=== PATIENT | female | born 1940 | race Caucasian/White ===

== ENCOUNTER 2018-12-24 12:07 | Inpatient (IN) | payer OTHER ==
--- NOTE | 2018-12-24 12:34 | PDOC ---
History of Present Illness - General Chief Complaint: Pain, Acute Stated Complaint: Weakness Time Seen by Provider: 12/24/18 12:27 History Source: Patient Exam Limitations: No Limitations - History of Present Illness Initial Comments: 12/24/18 13:14 78 yo F pmh DM, arthritis, osteopenia, h/o rheumatic fever, HTN, COPD presents with 4 days of increasing constant nonradiating bilateral lower extremity pain localized to the ankles, knees, shins, and calves with right > left. Endorses similar b/l sacroilliac pain. She states there is some swelling of the b/l legs , hayden. of ankles. Pt felt tense since 12/19/18 when she received news her CT chest found a possibly malignant nodule. Normally functionally independent but pain has reduced her ability to ambulate and mild impact on ADLs. Denies recent falls or trauma. Endorses 4 days of constipation with no blood in stool and difficulty urinating. Denies numbness and tingling, F/C/N/V/D, abd pain, chest pain, SOB, headache, lightheadedness, dizziness. PMH DM, arthritis, osteopenia, h/o rheumatic fever, HTN, COPD Surgery: left foot bone spur, left hip pinning, thyroidectomy, tubal ligation Allergies: chart reviewed 12/16/18 CT demonstrated right lung nodule suspicious for malignancy. Past History - Past Medical History Allergies/Adverse Reactions: Allergies Allergy/AdvReac Type Severity Reaction Status Date / Time fesoterodine [From Toviaz] Allergy Verified 12/24/18 12:18 ofloxacin Allergy Verified 12/24/18 12:18 pineapple Allergy Verified 12/24/18 12:09 pomegranate Allergy Verified 12/24/18 12:09 strawberry Allergy Verified 12/24/18 12:09 tomato Allergy Verified 12/24/18 12:08 lansoprazole [From Prevacid] AdvReac Verified 12/24/18 12:18 prednisone AdvReac Verified 12/24/18 12:19 Home Medications: Ambulatory Orders Acetaminophen [Tylenol] 650 mg PO 1800 12/24/18 Albuterol Sulfate [Proair Hfa] 1 - 2 inh IH Q4H PRN 12/24/18 Ascorbic Acid [Vitamin C] 1,000 mg PO DAILY 12/24/18 Aspirin [Aspirin EC] 81 mg PO DAILY 12/24/18 Atenolol [Tenormin -] 25 mg PO 2300 12/24/18 Beta-Carotene(A) W-C and E/Min [Ocuvite (Nf)] 1 tab PO DAILY 12/24/18 Calcium Carbonate [Calcium] 1,000 mg PO 1800 12/24/18 Cranberry 0 mg PO BID 12/24/18 Ergocalciferol (Vitamin D2) [Vitamin D2] 2,000 unit PO DAILY 12/24/18 Levothyroxine Sodium [Levoxyl] 112 mcg PO 0700 12/24/18 Lutein 20 mg PO DAILY 12/24/18 Meloxicam 15 mg PO 1200 12/24/18 Metformin HCl [Glucophage] 500 mg PO 1800 12/24/18 [place]-3/Dha/Epa/Fish Oil [Fish Oil 1,000 mg Softgel] 0 mg PO 179912/24/18 Simvastatin 10 mg PO 179912/24/18 COPD: No - Suicide/Smoking/Psychosocial Hx Smoking History: Former smoker Have you smoked in the past 12 months: No If you are a former smoker, when did you quit?: 1995 Information on smoking cessation initiated: No Review of Systems - Review of Systems Able to Perform ROS?: Yes Is the patient limited Swedish proficient: No Constitutional: Yes: Weakness. No: Chills, Fever, Loss of Appetite HEENTM: No: Symptoms Reported, Eye Pain, Blurred Vision, Tearing, Recent change in vision, Double Vision, Cataracts, Ear Pain, Ocular Prothesis, Ear Discharge, Nose Pain, Nose Congestion, Tinnitus, Nose Bleeding, Hearing Loss, Throat Pain, Throat Swelling, Mouth Pain, Dental Problems, Difficulty Swallowing, Mouth Swelling, Other Respiratory: No: Symptoms reported, Cough, Orthopnea, Shortness of Breath, SOB with Exertion, SOB at Rest, Stridor, Wheezing, Productive cough, Hemoptysis, Other Cardiac (ROS): No: Symptoms Reported, Chest Pain, Edema, Irregular Heart Rate, Lightheadedness, Palpitations, Syncope, Chest Tightness, Other ABD/GI: Yes: Symptoms Reported, See HPI, Constipated. No: Abdominal Distended, Abd. Pain w/ defecation, Blood Streaked Bowels, Diarrhea, Difficulty Swallowing , Nausea, Poor Appetite, Poor Fluid Intake, Rectal Bleeding, Vomiting, Indigestion, Abdominal cramping, Tarry Stools, Other : Yes: Symptoms Reported (difficulty urinating with no burning or blood noticed), See HPI Musculoskeletal: Yes: See HPI. No: Back Pain, Neck Pain Integumentary: No: Symptoms Reported, See HPI, Bruising, Change in Color, Change in Hair/Nails, Dryness, Erythema, Flushing, Lesions, Lumps, Pallor, Pruritus, Rash, Sweating, Other Neurological: Yes: See HPI, Weakness. No: Headache, Numbness, Paresthesia, Pre- Existing Deficit, Seizure, Tingling, Tremors, Unsteady Gait, Ataxia, Dizziness, Other Psychiatric: Yes: Anxiety (see hpi: CT shows possible malignancy ), Stressors. No: Change in Appetite *Physical Exam - Vital Signs Last Vital Signs Temp Pulse Resp BP Pulse Ox 98.1 F 72 18 138/68 94 L 12/24/18 12:19 12/24/18 12:19 12/24/18 12:19 12/24/18 12:19 12/24/18 12:19 - Physical Exam Comments: 12/24/18 13:40 GEN: Resting comfortably in bed, NAD. HEENT: NC/AT, EOMI, PERRLA, CN II-XII intact. Moist mucous membranes. CV: S1/S2, RRR, no m/r/g LUNG: CTAB, no wheezes, crackles, rales, rhonchi. GI: soft, ndnt, +BS. Neg CVAT b/l. No masses. Extremities: No obvious deformities. +TTP b/l calves and suprapetallar bursa. No bony point tenderness. Back: (+) TTP of right sacroiliac joint region. No step offs, no vertebral TTP. No pelvic TTP. Neuro: AAOx3, moving b/l UE well. 3/5 effort-limited strength of the b/l LE. Sensation grossly intact of all extremities. ED Treatment Course - LABORATORY CBC & Chemistry Diagram: 12/27/18 07:00 12/27/18 07:00 Medical Decision Making - Medical Decision Making 12/24/18 13:45 78 yo F pmh DM, arthritis, osteopenia, h/o rheumatic fever, HTN, COPD with 4 days of increasing sharp constant nonradiating bilateral lower extremity pain localized to the ankles, knees, shins, and calves; with right > left. Endorsing similar b/l sacroilliac pain. Patient had CT 12/16/18 demonstrating a RLL lung mass susp. for malignancy. Patient endorses 4 days of difficulty urinating and constipation. Exam significant for TTP of the b/l calves, suprapetallar bursas, and right sacroiliac joint. DDx pathologic fracture, bone metastases, UTI, DVT, rhabomyelisis. B/L LE pain - CBC, CMP, CPK - UA, UCX - IV, PAIN CTRL - B/L LE DVT STUDY - LS XR 12/24/18 16:33 - LS XR reviewed - Labs reviewed - f/u UA 12/24/18 17:34 - LE DVT study found no DVTs in either leg - f/u UA - pain control -> ambulate 12/24/18 19:20 MRI L-spine Dispo pending Signed out to night team *DC/Admit/Observation/Transfer Diagnosis at time of Disposition: Lower extremity pain Qualifiers: Laterality: bilateral Qualified Code(s): M79.604 - Pain in right leg; M79.605 - Pain in left leg - Discharge Dispostion Condition at time of disposition: Stable Decision to Admit order: Yes - Referrals - Patient Instructions - Post Discharge Activity
[2018-12-24] MEDS ORDERED: ACETAMINOPHEN 1000 MG/100 ML VIAL (NON FORMULARY) IVPB ONE (14:18)
[2018-12-24 14:40] LABS: HEMATOCRIT 41.4 % (32.4-45.2); MCH 30.1 pg (25.7-33.7); MCHC 33.8 g/dl (32.0-36.0); MEAN CELL VOLUME 89.1 fl (80-96); MEAN PLT VOLUME 8.7 fl (7.5-11.1); PLATELET COUNT 248 K/MM3 (134-434); RBC 4.65 M/mm3 (3.60-5.2); RDW 13.5 % (11.6-15.6); WHITE BLOOD COUNT 9.4 K/mm3 (4.0-10.0)
[2018-12-24] MEDS ORDERED: ACETAMINOPHEN INJECTION 100 ML IVPB ONE (15:05)
[2018-12-24 15:06] LABS: ALBUMIN 3.2 g/dl (3.4-5.0); BILIRUBIN,TOTAL 0.5 mg/dL (0.2-1); BLOOD UREA NITROGEN 15.4 mg/dL (7-18); CALCIUM 9.1 mg/dL (8.5-10.1); CREATININE 0.7 mg/dL (0.55-1.3); POTASSIUM 4.2 mmol/L (3.5-5.1); TOT PROT 6.3 g/dl (6.4-8.2)
--- NOTE | 2018-12-24 17:02 | PDOC ---
Documentation entered by Becky Gill SCRIBE, acting as scribe for Sanjana Rae MD. Sanjana Rae MD: This documentation has been prepared by the Jairo lorenzo Collisia, SCRIBE, under my direction and personally reviewed by me in its entirety. I confirm that the documentation accurately reflects all work, treatment, procedures, and medical decision making performed by me. Attending Attestation - Resident Resident Name: Tahir Shelby - [facility] HPI: 12/24/18 15:05 The patient is a 78 year old male with a significant past medical history of diabetes, hypertension, COPD, and a right lower lobe malignancy( recent diagnosed) who presents to the emergency department with bilateral leg pain for 4 ceron. The patient states that her leg pain began on sunday. She states that she has been able to get around and ambulate normally secondary to pain. She denies any fever, chills, nausea, vomiting, diarrhea, constipation, urinary symptoms, numbness, tingling or weakness. She denies and back pain. She endorses that the pain goes across her buttocks and down her legs. The patient denies any other complaints. - Physicial Exam PE: 12/24/18 15:31 GENERAL: Awake, alert, and fully oriented, in no acute distress HEAD: No signs of trauma EYES: PERRLA, EOMI, sclera anicteric, conjunctiva clear ENT: Auricles normal inspection, hearing grossly normal, nares patent, oropharynx clear without exudates. Moist mucosa NECK: Normal ROM, supple, no lymphadenopathy, JVD, or masses LUNGS: Breath sounds equal, clear to auscultation bilaterally. No wheezes, and no crackles HEART: Regular rate and rhythm, normal S1 and S2, no murmurs, rubs or gallops ABDOMEN: Soft, nontender, normoactive bowel sounds. No guarding, no rebound. No masses BACK:(+) point tenderness at sacral spine. EXTREMITIES: (+) decrease active ROM at knee, minimal ROM below knee. No erythema,edema. No clubbing or cyanosis. No cords or tenderness NEUROLOGICAL: Cranial nerves II through XII grossly intact. Normal speech, normal gait SKIN: Warm, Dry, normal turgor, no rashes or lesions noted. - Medical Decision Making 07/23/19 17:00 Pt presents to the ED complaining of bilateral leg pain and lower back pain. History of lung malignancy. No symptoms suggestive of cord compression. Differential includes DVT, lytic lesion, muscular pain. Will check xray of the lumbar spine and b/l duplex, give pain control, likely discharge home if studies are negative.
[2018-12-24] MEDS ORDERED: morphine CARPU-JECT 4 MG/1 ML DISP.SYRIN IVPUSH ONE (17:16)
[2018-12-24] MEDS ORDERED: morphine SULFATE 4 MG/ML VIAL ONE (19:12)
[2018-12-24 20:31] LABS: EPI CELLS 0.5 /HPF (0-5/HPF); HYALINE CASTS 0 /lpf (0-8); PH,URINE 6.5 (5.0-8.0); URINE APPEARANCE CLEAR; URINE BACTERIA 3.5 /hpf (NEGATIVE); URINE BILIRUBIN NEGATIVE (NEGATIVE); URINE COLOR YELLOW; URINE GLUCOSE (UA) NEGATIVE (NEGATIVE); URINE KETONE NEGATIVE (NEGATIVE); URINE LEUK ESTERASE NEGATIVE (NEGATIVE); URINE NITRITE NEGATIVE (NEGATIVE); URINE PROTEIN NEGATIVE (NEGATIVE); URINE RBC 5 /hpf (0-4); URINE UROBILINOGEN 0.2 mg/dL (0.2-1.0); URINE WBC 1 /hpf (0-5)
--- NOTE | 2018-12-25 03:59 | HP ---
Admitting History and Physical - Primary Care Physician PCP: Nolan Ying - Admission Chief Complaint: Back pain, B/L LE knees, ankles, calves pain, Unable to Ambulate History of Present Illness: This is a 8 y/o woman with a PMHx of recent diagnosis of Lung Ca (CT Chest- possible malignant nodule), HTN, DM, COPD, OA, Osteopenia, Rheumatic Fever. who presents to the ED with back pain and inability to ambulate. Patient reports sacroilliac pain radiating to b/l LE, R>L.Patient reports last Sunday she was her usual self ambulating with a cane, performing her ADLs, and errands. She reports having a loss of balance with her right leg falling against the door. The patient reports last Sunday morning she could not get out of the bed due to the pain to her lower back, knees, calves and ankles. Patient denies numbness or parasthesias at present. Patient denies bowel or bladder incontinence. Patient denies fever, chills, cough, dizziness, SOB, CP, palpitations, AP, N/V/D, dysuria. Patient denies recent trauma. History Source: Patient Limitations to Obtaining History: No Limitations - Past Medical History Cardiovascular: Yes: HTN Pulmonary: Yes: Cancer, COPD Musculoskeletal: Yes: Osteoarthritis, Other (Osteopenia) Rheumatology: Yes: Other (Rheumatic fever) Endocrine: Yes: Diabetes Mellitus - Past Surgical History Past Surgical History: Yes: Joint Replacement - Smoking History Smoking history: Former smoker Have you smoked in the past 12 months: No If you are a former smoker, when did you quit?: 1995 - Social History History of Recent Travel: No Home Medications - Allergies Allergies/Adverse Reactions: Allergies Allergy/AdvReac Type Severity Reaction Status Date / Time fesoterodine [From Toviaz] Allergy Verified 12/24/18 12:18 ofloxacin Allergy Verified 12/24/18 12:18 pineapple Allergy Verified 12/24/18 12:09 pomegranate Allergy Verified 12/24/18 12:09 strawberry Allergy Verified 12/24/18 12:09 tomato Allergy Verified 12/24/18 12:08 lansoprazole [From Prevacid] AdvReac Verified 12/24/18 12:18 prednisone AdvReac Verified 12/24/18 12:19 - Home Medications Home Medications: Ambulatory Orders Acetaminophen [Tylenol] 650 mg PO 1800 12/24/18 Albuterol Sulfate [Proair Hfa] 1 - 2 inh IH Q4H PRN 12/24/18 Ascorbic Acid [Vitamin C] 1,000 mg PO DAILY 12/24/18 Aspirin [Aspirin EC] 81 mg PO DAILY 12/24/18 Atenolol [Tenormin -] 25 mg PO 2300 12/24/18 Beta-Carotene(A) W-C and E/Min [Ocuvite (Nf)] 1 tab PO DAILY 12/24/18 Calcium Carbonate [Calcium] 1,000 mg PO 1800 12/24/18 Cranberry 0 mg PO BID 12/24/18 Ergocalciferol (Vitamin D2) [Vitamin D2] 2,000 unit PO DAILY 12/24/18 Levothyroxine Sodium [Levoxyl] 112 mcg PO 0712/24/18 Lutein 20 mg PO DAILY 12/24/18 Meloxicam 15 mg PO 1200 12/24/18 Metformin HCl [Glucophage] 500 mg PO 1800 12/24/18 [place]-3/Dha/Epa/Fish Oil [Fish Oil 1,000 mg Softgel] 0 mg PO 1800 12/24/18 Simvastatin 10 mg PO 1800 12/24/18 Family Disease History - Family Disease History Family History: Unable to Obtain Review of Systems - Review of Systems Constitutional: reports: Weakness Eyes: reports: No Symptoms HENT: reports: No Symptoms Neck: reports: No Symptoms Cardiovascular: reports: No Symptoms Respiratory: reports: No Symptoms Gastrointestinal: reports: No Symptoms Genitourinary: reports: No Symptoms Breasts: reports: No Symptoms Reported Musculoskeletal: reports: Back Pain, Extremity Pain, Joint Pain Integumentary: reports: No Symptoms Neurological: reports: Unsteady Gait, Weakness Endocrine: reports: No Symptoms Hematology/Lymphatic: reports: No Symptoms Psychiatric: reports: No Symptoms Pain Intensity: 6 Physical Examination Vital Signs: Vital Signs Temperature 97.6 F 12/25/18 03:20 Pulse Rate 68 12/25/18 03:20 Respiratory Rate 17 12/25/18 03:20 Blood Pressure 106/61 12/25/18 03:20 O2 Sat by Pulse Oximetry (%) 95 12/25/18 03:20 Constitutional: Yes: No Distress, Anxious Eyes: Yes: EOM Intact, PERRL HENT: Yes: WNL, Atraumatic, Normocephalic Neck: Yes: WNL, Supple, Trachea Midline Cardiovascular: Yes: Regular Rate and Rhythm, S1, S2 Respiratory: Yes: Rhonchi (right lobe) Gastrointestinal: Yes: WNL, Normal Bowel Sounds, Soft ...Rectal Exam: Yes: Deferred Renal/: Yes: WNL Breast(s): Yes: WNL Musculoskeletal: Yes: Back Pain Extremities: Yes: WNL Edema: No Peripheral Pulses WNL: Yes Neurological: Yes: WNL, Alert, Oriented, Cran Nerves II-XII Intact. No: Loss of Sensation, Numbness, Paresthesia, Tingling Psychiatric: Yes: WNL, Alert, Oriented Labs: CBC, BMP 12/24/18 04:04 12/24/18 04:04 Laboratory Results - last 24 hr 12/24/18 12/24/18 12/24/18 04:04 04:04 13:42 WBC 9.4 RBC 4.65 Hgb 14.0 Hct 41.4 MCV 89.1 MCH 30.1 MCHC 33.8 RDW 13.5 Plt Count 248 MPV 8.7 Sodium 139 Potassium 4.2 Chloride 104 Carbon Dioxide 26 Anion Gap 9 BUN 15.4 Creatinine 0.7 Est GFR (CKD-EPI)AfAm 96.86 Est GFR (CKD-EPI)NonAf 83.57 POC Glucometer Random Glucose 109 H Calcium 9.1 Total Bilirubin 0.5 AST 17 ALT 21 Alkaline Phosphatase 99 Creatine Kinase 92 Total Protein 6.3 L Albumin 3.2 L Urine Color Cancelled Urine Appearance Cancelled Urine pH Cancelled Ur Specific [place] Cancelled Urine Protein Cancelled Urine Glucose (UA) Cancelled Urine Ketones Cancelled Urine Blood Cancelled Urine Nitrite Cancelled Urine Bilirubin Cancelled Urine Urobilinogen Cancelled Ur Leukocyte Esterase Cancelled Urine WBC (Auto) Cancelled Urine RBC (Auto) Cancelled Urine Casts (Auto) Cancelled U Pathogenic Cast Auto Cancelled U Epithel Cells (Auto) Cancelled U Sm Round Cell (Auto) Cancelled Urine Crystals (Auto) Cancelled Urine Bacteria (Auto) Cancelled Urine Yeast (Auto) Cancelled 12/24/18 12/25/18 20:15 02:56 WBC RBC Hgb Hct MCV MCH MCHC RDW Plt Count MPV Sodium Potassium Chloride Carbon Dioxide Anion Gap BUN Creatinine Est GFR (CKD-EPI)AfAm Est GFR (CKD-EPI)NonAf POC Glucometer 130 Random Glucose Calcium Total Bilirubin AST ALT Alkaline Phosphatase Creatine Kinase Total Protein Albumin Urine Color Yellow Urine Appearance Clear Urine pH 6.5 Ur Specific [place] 1.010 Urine Protein Negative Urine Glucose (UA) Negative Urine Ketones Negative Urine Blood Trace Urine Nitrite Negative Urine Bilirubin Negative Urine Urobilinogen 0.2 Ur Leukocyte Esterase Negative Urine WBC (Auto) 1 Urine RBC (Auto) 5 Urine Casts (Auto) 0 U Pathogenic Cast Auto U Epithel Cells (Auto) 0.5 U Sm Round Cell (Auto) Urine Crystals (Auto) Urine Bacteria (Auto) 3.5 Urine Yeast (Auto) Intake & Output 12/22/18 12/23/18 12/24/18 12/25/18 23:59 23:59 23:59 23:59 Weight 78.018 kg Current Medications Generic Name Dose Route Start Last Admin Trade Name Freq PRN Reason Stop Dose Admin Acetaminophen 650 mg 12/25/18 06:40 Tylenol - PO Q6H PRN PAIN LEVEL 7 - 10 Albuterol Sulfate 1 puff 12/25/18 06:40 Ventolin Hfa Inhaler - IH Q4H PRN SHORTNESS OF BREATH Ascorbic Acid 1,000 mg 12/25/18 10:00 Vitamin C - PO DAILY [facility] Aspirin 81 mg 12/25/18 10:00 Ecotrin - PO DAILY [facility] Atenolol 25 mg 12/25/18 23:00 Tenormin - PO 2300 [facility] Atorvastatin Calcium 10 mg 12/25/18 22:00 Lipitor - PO 2200 [facility] Levothyroxine Sodium 112 mcg 12/26/18 07:00 Synthroid - PO 0700 [facility] Non-Formulary Medication 1 tab 12/25/18 10:00 Beta-Carotene(A) W-C And E/Min PO DAILY [facility] Non-Formulary Medication 20 mg 12/25/18 10:00 Lutein [Lutein] PO DAILY [facility] Non-Formulary Medication 15 mg 12/25/18 12:00 Meloxicam [Meloxicam] PO 1200 [facility] Vagmh-0-Blja Ethyl Esters 2 gm 12/25/18 10:00 Lovaza - PO BID [facility] Imaging - Results X-ray: Report Reviewed, Image Reviewed MRI: Report Reviewed EKG: Pending Problem List - Problems (1) Intractable back pain Code(s): M54.9 - DORSALGIA, UNSPECIFIED (2) HTN (hypertension) Code(s): I10 - ESSENTIAL (PRIMARY) HYPERTENSION (3) COPD (chronic obstructive pulmonary disease) Code(s): J44.9 - CHRONIC OBSTRUCTIVE PULMONARY DISEASE, UNSPECIFIED (4) Diabetes mellitus Code(s): E11.9 - TYPE 2 DIABETES MELLITUS WITHOUT COMPLICATIONS (5) Osteoarthritis Code(s): M19.90 - UNSPECIFIED OSTEOARTHRITIS, UNSPECIFIED SITE Assessment/Plan This is a 78 y/o woman with a PMHx of HTN, DM, COPD, recent diagnosis of Lung Ca , OA, Osteopenia, Rheumatic Fever. Admitted for Intractable Back Pain, Generalized Weakness, Unable to Ambulate. Plan: Admit Appreciate Ortho consult Appreciate Oncology consult PT eval Continue home meds Monitor CBC, BMP Monitor vitals Fall Precautions Tylenol prn FEN PO fluids as tolerated Replete lytes prn Low Na, Diabetic Diet DVT ppx OOB SCDs Heparin SQ Dispo: Requires Inpatient Care Visit type - Emergency Visit Emergency Visit: Yes ED Registration Date: 12/24/18 Care time: The patient presented to the Emergency Department on the above date and was hospitalized for further evaluation of their emergent condition. - New Patient This patient is new to me today: Yes Date on this admission: 12/25/18 - Critical Care Critical Care patient: No
[2018-12-25] MEDS ORDERED: ALBUTEROL SO4 8 GM HFA INHALER IH PRN ×2 (06:40→08:01)
[2018-12-25] MEDS ORDERED: ACETAMINOPHEN 325 MG TABLET (FP) PO PRN (06:40)
[2018-12-25] MEDS ORDERED: PATIENT'S OWN MEDICATION (NON-FORMULARY) (Lutein [Lutein] 20 MG) PO SCH (10:00)
[2018-12-25] MEDS ORDERED: PATIENT'S OWN MEDICATION (NON-FORMULARY) (Beta-Carotene(A) W-C And E/Min 1 TAB) PO SCH (10:00)
[2018-12-25] MEDS: OMEGA-3 ACID ETHYL ESTERS (FATTY-ACIDS) 1 GM CAPSULE (FP) PO SCH ×2 (10:26→22:32)
[2018-12-25] MEDS: ASCORBIC ACID 500 MG TABLET (FP) PO SCH (10:30)
[2018-12-25] MEDS: ASPIRIN COATED 81 MG TABLET.EC PO SCH (10:30)
[2018-12-25] MEDS ORDERED: PATIENT'S OWN MEDICATION (NON-FORMULARY) (Meloxicam [Meloxicam] 15 MG) PO SCH (12:00)
--- NOTE | 2018-12-25 14:21 | PN ---
Progress Note (short form) - Note Progress Note: PULMONARY CONSULTATION DICTATED 12/25/18 IMP RLL MASS LIKELY BRONCHOGENIC CA COPD DM OA BACK PAIN,LOWER EXT WEAKNESS H/O RHEUMATIC FEVER PLAN ANALGESICS BONE SCAN PET OUTPATIENT ORTHOPEDICS,NEUROLOGY CONSULT PT WILL NEED BX RLL MASS DR RIGGINS Problem List - Problems (1) Lung mass Code(s): R91.8 - OTHER NONSPECIFIC ABNORMAL FINDING OF LUNG FIELD (2) COPD (chronic obstructive pulmonary disease) Code(s): J44.9 - CHRONIC OBSTRUCTIVE PULMONARY DISEASE, UNSPECIFIED (3) Diabetes mellitus Code(s): E11.9 - TYPE 2 DIABETES MELLITUS WITHOUT COMPLICATIONS (4) Lower extremity weakness Code(s): R29.898 - OTH SYMPTOMS AND SIGNS INVOLVING THE MUSCULOSKELETAL SYSTEM (5) H/O: rheumatic fever Code(s): Z86.79 - PERSONAL HISTORY OF OTHER DISEASES OF THE CIRCULATORY SYSTEM (6) HTN (hypertension) Code(s): I10 - ESSENTIAL (PRIMARY) HYPERTENSION (7) Osteoarthritis Code(s): M19.90 - UNSPECIFIED OSTEOARTHRITIS, UNSPECIFIED SITE
--- NOTE | 2018-12-25 15:12 | PN ---
Progress Note, Physician Chief Complaint: Intractable Back Pain Lower Extremity Weakness History of Present Illness: Previous notes and events reviewed awake and alert NAD complain of aching right lower back pain continue with lower extremity weakness denies chest pain or SOB - Current Medication List Current Medications: Active Medications Acetaminophen (Tylenol -) 650 mg PO Q6H PRN PRN Reason: PAIN LEVEL 7 - 10 Albuterol Sulfate (Ventolin Hfa Inhaler -) 1 puff IH Q4H PRN PRN Reason: SHORTNESS OF BREATH Albuterol Sulfate (Ventolin Hfa Inhaler -) 2 puff IH Q4H PRN PRN Reason: SHORTNESS OF BREATH Ascorbic Acid (Vitamin C -) 1,000 mg PO DAILY [facility] Last Admin: 12/25/18 10:30 Dose: 1,000 mg Aspirin (Ecotrin -) 81 mg PO DAILY [facility] Last Admin: 12/25/18 10:30 Dose: 81 mg Atenolol (Tenormin -) 25 mg PO 2300 [facility] Atorvastatin Calcium (Lipitor -) 10 mg PO 2200 [facility] Levothyroxine Sodium (Synthroid -) 112 mcg PO 0700 [facility] Non-Formulary Medication (Beta-Carotene(A) W-C And E/Min) 1 tab PO DAILY [facility] Non-Formulary Medication (Lutein [Lutein]) 20 mg PO DAILY [facility] Non-Formulary Medication (Meloxicam [Meloxicam]) 15 mg PO 1200 [facility] Afkwh-1-Braw Ethyl Esters (Lovaza -) 2 gm PO BID [facility] Last Admin: 12/25/18 10:26 Dose: 2 gm - Objective Vital Signs: Vital Signs Temperature 97.6 F 12/25/18 03:20 Pulse Rate 70 12/25/18 08:39 Respiratory Rate 18 12/25/18 08:39 Blood Pressure 112/61 12/25/18 08:39 O2 Sat by Pulse Oximetry (%) 96 12/25/18 08:39 Constitutional: Yes: No Distress, Calm Eyes: Yes: Conjunctiva Clear HENT: Yes: Atraumatic Cardiovascular: Yes: Regular Rate and Rhythm Respiratory: Yes: Regular, CTA Bilaterally Gastrointestinal: Yes: Normal Bowel Sounds, Soft Musculoskeletal: Yes: Muscle Weakness Extremities: Yes: WNL Edema: No Neurological: Yes: Alert, Oriented, Weakness (b/l lower extremity) Psychiatric: Yes: Alert, Oriented Labs: CBC, BMP 12/24/18 04:04 12/24/18 04:04 - ....Imaging MRI: Report Reviewed Problem List - Problems (1) COPD (chronic obstructive pulmonary disease) Assessment/Plan: -Pulm on board -O2 via NC -keep SpO2 >90% -bronchodilators Code(s): J44.9 - CHRONIC OBSTRUCTIVE PULMONARY DISEASE, UNSPECIFIED (2) Diabetes mellitus Assessment/Plan: -BGM ACHS -ISS -Metformin -low Na/diabetic diet Code(s): E11.9 - TYPE 2 DIABETES MELLITUS WITHOUT COMPLICATIONS (3) HTN (hypertension) Assessment/Plan: -Atenolol -low Na diet Code(s): I10 - ESSENTIAL (PRIMARY) HYPERTENSION (4) Intractable back pain Assessment/Plan: -Lumbar MRI shows L2-L3 central spinal canal stenosis sedimentation sign, acute osteoporotic compression fracture involving superior endplateof L4, L$-L5 circumfrencial disc bulge -Orthopedic consult -PT -pain control Code(s): M54.9 - DORSALGIA, UNSPECIFIED (5) Lung cancer Assessment/Plan: -patient is scheduled for PET Scan as outpatient -Pulm on board Code(s): C34.90 - MALIGNANT NEOPLASM OF UNSP PART OF UNSP BRONCHUS OR LUNG (6) Osteoarthritis Assessment/Plan: -Meloxicam -PT Code(s): M19.90 - UNSPECIFIED OSTEOARTHRITIS, UNSPECIFIED SITE (7) Lower extremity weakness Assessment/Plan: -Neurology consult -PT -fall precautions Code(s): R29.898 - OTH SYMPTOMS AND SIGNS INVOLVING THE MUSCULOSKELETAL SYSTEM Assessment/Plan see problem list dvt ppx
[2018-12-25] MEDS ORDERED: INSULIN SLIDING SCALE (NOVOLOG) 1 VIAL SQ SCH (16:30)
[2018-12-25] MEDS: INSULIN SLIDING SCALE (NOVOLOG) 1 VIAL SQ SCH ×2 (17:50→22:33)
[2018-12-25] MEDS ORDERED: DEXAMETHASONE SOD PHOSPHATE 4 MG/1 ML VIAL IVPB ONE (22:00)
[2018-12-25] MEDS: ATORVASTATIN CA 10 MG TABLET (FP) PO SCH (22:32)
[2018-12-25] MEDS: ATENOLOL 25 MG TABLET (FP) PO SCH (22:32)
[2018-12-26 01:29] VITALS: BMI 29.0
[2018-12-26] MEDS: INSULIN SLIDING SCALE (NOVOLOG) 1 VIAL SQ SCH ×4 (06:44→21:05)
[2018-12-26] MEDS: DEXAMETHASONE SOD PHOSPHATE 4 MG/1 ML VIAL IVPUSH SCH ×4 (06:44→20:59)
[2018-12-26] MEDS ORDERED: LEVOTHYROXINE NA 112 MCG TABLET (FP) PO SCH (07:00)
[2018-12-26 08:24] LABS: HEMATOCRIT 44.2 % (32.4-45.2); HEMOGLOBIN 14.8 GM/dL (10.7-15.3); MCHC 33.5 g/dl (32.0-36.0); MEAN CELL VOLUME 89.4 fl (80-96); MEAN PLT VOLUME 9.2 fl (7.5-11.1); PLATELET COUNT 264 K/MM3 (134-434); RBC 4.94 M/mm3 (3.60-5.2); RDW 13.6 % (11.6-15.6); WHITE BLOOD COUNT 11.9 K/mm3 (4.0-10.0)
[2018-12-26 08:58] LABS: ALBUMIN 3.2 g/dl (3.4-5.0); BILIRUBIN,TOTAL 0.4 mg/dL (0.2-1); BLOOD UREA NITROGEN 16.2 mg/dL (7-18); CREATININE 0.7 mg/dL (0.55-1.3); POTASSIUM 4.2 mmol/L (3.5-5.1); TOT PROT 6.6 g/dl (6.4-8.2)
--- NOTE | 2018-12-26 09:38 | CON.ORTH ---
Consult Reason for Consultation:: LBP - Past Medical History Cardio/Vascular: Yes: HTN Pulmonary: Yes: Cancer, COPD Musculoskeletal: Yes: Osteoarthritis, Other (Osteopenia) Rheumatology: Yes: Other (Rheumatic fever) Endocrine: Yes: Diabetes Mellitus - Past Surgical History Past Surgical History: Yes: Joint Replacement - Alcohol/Substance Use Hx Alcohol Use: No - Smoking History Smoking history: Former smoker Have you smoked in the past 12 months: No Aproximately how many cigarettes per day: 20 If you are a former smoker, when did you quit?: 1995 - Social History History of Recent Travel: No Home Medications - Allergies Allergies/Adverse Reactions: Allergies Allergy/AdvReac Type Severity Reaction Status Date / Time fesoterodine [From Toviaz] Allergy Verified 12/24/18 12:18 ofloxacin Allergy Verified 12/24/18 12:18 pineapple Allergy Verified 12/24/18 12:09 pomegranate Allergy Verified 12/24/18 12:09 strawberry Allergy Verified 12/24/18 12:09 tomato Allergy Verified 12/24/18 12:08 lansoprazole [From Prevacid] AdvReac Verified 12/24/18 12:18 prednisone AdvReac Verified 12/24/18 12:19 - Home Medications Home Medications: Ambulatory Orders Acetaminophen [Tylenol] 650 mg PO 1800 12/24/18 Albuterol Sulfate [Proair Hfa] 1 - 2 inh IH Q4H PRN 12/24/18 Ascorbic Acid [Vitamin C] 1,000 mg PO DAILY 12/24/18 Aspirin [Aspirin EC] 81 mg PO DAILY 12/24/18 Atenolol [Tenormin -] 25 mg PO 2300 12/24/18 Beta-Carotene(A) W-C and E/Min [Ocuvite (Nf)] 1 tab PO DAILY 12/24/18 Calcium Carbonate [Calcium] 1,000 mg PO 1800 12/24/18 Cranberry 0 mg PO BID 12/24/18 Ergocalciferol (Vitamin D2) [Vitamin D2] 2,000 unit PO DAILY 12/24/18 Levothyroxine Sodium [Levoxyl] 112 mcg PO 0700 12/24/18 Lutein 20 mg PO DAILY 12/24/18 Meloxicam 15 mg PO 1200 12/24/18 Metformin HCl [Glucophage] 500 mg PO 1800 12/24/18 [place]-3/Dha/Epa/Fish Oil [Fish Oil 1,000 mg Softgel] 0 mg PO 1800 12/24/18 Simvastatin 10 mg PO 1800 12/24/18 Physical Exam for Ortho Vital Signs: Vital Signs Temperature 98.2 F 12/26/18 05:36 Pulse Rate 66 12/26/18 05:36 Respiratory Rate 20 12/26/18 05:36 Blood Pressure 111/61 12/26/18 05:36 O2 Sat by Pulse Oximetry (%) 97 12/26/18 00:36 Labs: CBC, BMP 12/26/18 07:15 12/26/18 07:15 - Affected Extremity Neuro/Vascular Assessment: Yes: Warm, [place], Normal Sensation Other Findings/Remarks: LS spine- +ttp right lateral paraspinals, decr sensation in b/l LE, + SLR , strength 4/5, 2 + pulses b/l Imaging - Results X-ray: Report Reviewed, Image Reviewed MRI: Report Reviewed, Image Reviewed Assessment/Plan 8 y/o woman with a PMHx of recent diagnosis of Lung Ca (CT Chest- possible malignant nodule), HTN, DM, COPD, OA, Osteopenia, Rheumatic Fever. who presents to the ED with back pain and inability to ambulate. Patient reports sacroilliac pain radiating to b/l LE, R>L.Patient reports last Sunday she was her usual self ambulating with a cane, performing her ADLs, and errands. She reports having a loss of balance with her right leg falling against the door. The patient reports last Sunday morning she could not get out of the bed due to the pain to her lower back, knees, calves and ankles. Patient denies bowel or bladder incontinence. Patient denies fever, chills, cough, dizziness, SOB, CP, palpitations, AP, N/V/D, dysuria. Patient notes decreased sensation in b/l LE. She notes that her pain is better this am. a/p L4 compression fx, multi level HNP, foraminal and central canal stenosis MRI d/w pt in detail PT eval, wbat recommend neurosurgery eval may benefit from lumbar brace d/w Dr. Brambila
--- NOTE | 2018-12-26 11:17 | CONSULT ---
Consultation: CONSULT REQUEST: Heme/Onc HISTORY OF PRESENT ILLNESS: Patient is a 78 yo F with a PMHx, HTN, DM, COPD, osteopenia, rheumatic fever, Possible Lung Malignancy, presented to the ED because of b/l LE pain. She says she has pain on both legs from her knees down to her foot. She also complains of lower back pain. She said she was doing fine a few days ago until she felt her R knee buckle on her which caused her to lose balance. She denies falling. She was admitted with intractable back and lower extremity pain. Lumbar MRI: L4 compression fx, multi level HNP, foraminal and central canal stenosis. She is currently being evaluated by ortho. Patient currently denies symptoms except for the b/l LE pain and lower back pain. Patient also says she had a recent CT scan which revealed a RLL mass 3.1x2.5x1.8cm, likely bronchogenic Ca. Dr. Cohn is her spectroscopist. She says she was supposed to get a PET scan done this week but came to the ED because of her leg pain. Family hx: significant cancer in the family including sister with unknown cancer. Mother- colon Father- Lung Maternal grandmother-grandfather with Cancer Social hx: former 4PPd smoker. quit in Surgical hx: tubal ligation 1974, femur fracture repair , Complete thyroidectomy 2000 Liver bx for suspicious lesions 2014 unremarkable Colonoscopy 2015 some polyps Last mammo 09/2018-unremarkable REVIEW OF SYSTEMS: CONSTITUTIONAL: Absent: fever, chills, diaphoresis, generalized weakness, malaise, loss of appetite, weight change HEENT: Absent: rhinorrhea, nasal congestion, throat pain, throat swelling, difficulty swallowing, mouth swelling, ear pain, eye pain, visual changes CARDIOVASCULAR: Absent: chest pain, syncope, palpitations, irregular heart rate, lightheadedness , peripheral edema RESPIRATORY: Absent: cough, shortness of breath, dyspnea with exertion, orthopnea, wheezing, stridor, hemoptysis GASTROINTESTINAL: constipation Absent: abdominal pain, abdominal distension, nausea, vomiting, diarrhea, melena, hematochezia GENITOURINARY: Absent: dysuria, frequency, urgency, hesitancy, hematuria, flank pain, genital pain MUSCULOSKELETAL: Absent: myalgia, arthralgia, joint swelling, neck pain SKIN: Absent: rash, itching, pallor HEMATOLOGIC/IMMUNOLOGIC: Absent: easy bleeding, easy bruising, lymphadenopathy, frequent infections ENDOCRINE: Absent: unexplained weight gain, unexplained weight loss, heat intolerance, cold intolerance NEUROLOGIC: Absent: headache, focal weakness or paresthesias, dizziness, unsteady gait, seizure, mental status changes, bladder or bowel incontinence PHYSICAL EXAMINATION Vital Signs - 24 hr 12/25/18 12/26/18 12/26/18 17:28 00:36 05:36 Temperature 98.9 F 97.3 F L 98.2 F Pulse Rate 92 H 66 Pulse Rate [ 74 Right Radial] Respiratory 18 20 Rate Blood Pressure 133/81 111/61 Blood Pressure 112/48 L [Left Arm] O2 Sat by Pulse 95 97 Oximetry (%) GENERAL: Awake, alert, and fully oriented, in no acute distress. EYES: Pupils equal, round and reactive to light, extraocular movements intact, sclera anicteric, conjunctiva clear. No lid lag. EARS, NOSE, THROAT: oropharynx clear without exudates. Moist mucous membranes. coated tongue NECK: supple without lymphadenopathy, JVD, or masses. LUNGS: CTA b/l, no rales rhonchi or wheezing HEART: RRR, no murmurs appreciated ABDOMEN: Soft, nontender, not distended, normoactive bowel sounds, No hepatomegaly or splenomegaly. MUSCULOSKELETAL: Lower back tenderness to palpation. 3/5 strength in b/l LE. normal arm strength UPPER EXTREMITIES: 2+ pulses, warm, well-perfused. No peripheral edema. LOWER EXTREMITIES: 2+ pulses, tenderness to palpation on b/l carl, R knee, calf tenderness b/l with no erythema or swelling. SKIN: Warm, dry, normal turgor, no rashes or lesions noted. BREAST: no palpable masses, no nipple discharge Laboratory Results - last 24 hr 12/25/18 12/25/18 12/26/18 17:42 22:01 06:42 WBC RBC Hgb Hct MCV MCH MCHC RDW Plt Count MPV Sodium Potassium Chloride Carbon Dioxide Anion Gap BUN Creatinine Est GFR (CKD-EPI)AfAm Est GFR (CKD-EPI)NonAf POC Glucometer 118 147 167 Random Glucose Calcium Total Bilirubin AST ALT Alkaline Phosphatase Total Protein Albumin 12/26/18 12/26/18 07:15 07:15 WBC 11.9 H RBC 4.94 Hgb 14.8 Hct 44.2 MCV 89.4 MCH 30.0 MCHC 33.5 RDW 13.6 Plt Count 264 MPV 9.2 Sodium 138 Potassium 4.2 Chloride 105 Carbon Dioxide 26 Anion Gap 7 L BUN 16.2 Creatinine 0.7 Est GFR (CKD-EPI)AfAm 96.86 Est GFR (CKD-EPI)NonAf 83.57 POC Glucometer Random Glucose 140 H Calcium 9.0 Total Bilirubin 0.4 AST 12 L ALT 21 Alkaline Phosphatase 112 Total Protein 6.6 Albumin 3.2 L ASSESSMENT/PLAN: #RLL Mass- r/o malignancy #Back Pain #L4 compression fracture -For T-spine MRI to r/o mets -will need PET scan -Will likely need biopsy -consider Brain MRI -follow pulm reccs -ortho and neurosurgery on board Dispo: We will continue to follow the patient. Thank you for this consultative opportunity. <Ana Holley - Last Filed: 12/26/18 18:53> Consultation: REQUESTING PROVIDER: CONSULT REQUEST: We have been asked to medically evaluate this patient for ( specify). HISTORY OF PRESENT ILLNESS: REVIEW OF SYSTEMS: CONSTITUTIONAL: Absent: fever, chills, diaphoresis, generalized weakness, malaise, loss of appetite, weight change HEENT: Absent: rhinorrhea, nasal congestion, throat pain, throat swelling, difficulty swallowing, mouth swelling, ear pain, eye pain, visual changes CARDIOVASCULAR: Absent: chest pain, syncope, palpitations, irregular heart rate, lightheadedness , peripheral edema RESPIRATORY: Absent: cough, shortness of breath, dyspnea with exertion, orthopnea, wheezing, stridor, hemoptysis GASTROINTESTINAL: Absent: abdominal pain, abdominal distension, nausea, vomiting, diarrhea, constipation, melena, hematochezia GENITOURINARY: Absent: dysuria, frequency, urgency, hesitancy, hematuria, flank pain, genital pain MUSCULOSKELETAL: Absent: myalgia, arthralgia, joint swelling, back pain, neck pain SKIN: Absent: rash, itching, pallor HEMATOLOGIC/IMMUNOLOGIC: Absent: easy bleeding, easy bruising, lymphadenopathy, frequent infections ENDOCRINE: Absent: unexplained weight gain, unexplained weight loss, heat intolerance, cold intolerance NEUROLOGIC: Absent: headache, focal weakness or paresthesias, dizziness, unsteady gait, seizure, mental status changes, bladder or bowel incontinence PSYCHIATRIC: Absent: anxiety, depression, suicidal or homicidal ideation, hallucinations. PHYSICAL EXAMINATION Vital Signs - 24 hr 12/26/18 12/26/18 12/26/18 00:36 05:36 09:00 Temperature 97.3 F L 98.2 F Pulse Rate 92 H 66 Respiratory 18 20 19 Rate Blood Pressure 133/81 111/61 O2 Sat by Pulse 97 98 Oximetry (%) 12/26/18 11:00 Temperature 98.1 F Pulse Rate 102 H Respiratory 19 Rate Blood Pressure 146/95 O2 Sat by Pulse Oximetry (%) GENERAL: Awake, alert, and fully oriented, in no acute distress. HEAD: Normal with no signs of trauma. EYES: Pupils equal, round and reactive to light, extraocular movements intact, sclera anicteric, conjunctiva clear. No lid lag. EARS, NOSE, THROAT: Ears normal, nares patent, oropharynx clear without exudates. Moist mucous membranes. NECK: Normal range of motion, supple without lymphadenopathy, JVD, or masses. LUNGS: Breath sounds equal, clear to auscultation bilaterally. No wheezes, and no crackles. No accessory muscle use. HEART: Regular rate and rhythm, normal S1 and S2 without murmur, rub or gallop. ABDOMEN: Soft, nontender, not distended, normoactive bowel sounds, no guarding, no rebound, no masses. No hepatomegaly or splenomegaly. MUSCULOSKELETAL: Normal range of motion at all joints. No bony deformities or tenderness. No CVA tenderness. UPPER EXTREMITIES: 2+ pulses, warm, well-perfused. No cyanosis. No clubbing. Cap refill <2 seconds. No peripheral edema. LOWER EXTREMITIES: 2+ pulses, warm, well-perfused. No calf tenderness. No peripheral edema. NEUROLOGICAL: Cranial nerves II-XII intact. Normal speech. Normal gait. PSYCHIATRIC: Cooperative. Good eye contact. Appropriate mood and affect. SKIN: Warm, dry, normal turgor, no rashes or lesions noted. Laboratory Results - last 24 hr 12/25/18 12/26/18 12/26/18 22:01 06:42 07:15 WBC 11.9 H RBC 4.94 Hgb 14.8 Hct 44.2 MCV 89.4 MCH 30.0 MCHC 33.5 RDW 13.6 Plt Count 264 MPV 9.2 Sodium Potassium Chloride Carbon Dioxide Anion Gap BUN Creatinine Est GFR (CKD-EPI)AfAm Est GFR (CKD-EPI)NonAf POC Glucometer 147 167 Random Glucose Calcium Total Bilirubin AST ALT Alkaline Phosphatase Total Protein Albumin 12/26/18 12/26/18 12/26/18 07:15 11:45 16:51 WBC RBC Hgb Hct MCV MCH MCHC RDW Plt Count MPV Sodium 138 Potassium 4.2 Chloride 105 Carbon Dioxide 26 Anion Gap 7 L BUN 16.2 Creatinine 0.7 Est GFR (CKD-EPI)AfAm 96.86 Est GFR (CKD-EPI)NonAf 83.57 POC Glucometer 133 140 Random Glucose 140 H Calcium 9.0 Total Bilirubin 0.4 AST 12 L ALT 21 Alkaline Phosphatase 112 Total Protein 6.6 Albumin 3.2 L Active Medications Generic Name Dose Route Start Last Admin Trade Name Freq PRN Reason Stop Dose Admin Acetaminophen 650 mg 12/25/18 06:40 Tylenol - PO Q6H PRN PAIN LEVEL 7 - 10 Albuterol Sulfate 1 puff 12/25/18 06:40 Ventolin Hfa Inhaler - IH Q4H PRN SHORTNESS OF BREATH Albuterol Sulfate 2 puff 12/25/18 08:01 Ventolin Hfa Inhaler - IH Q4H PRN SHORTNESS OF BREATH Ascorbic Acid 1,000 mg 12/25/18 10:00 12/26/18 11:55 Vitamin C - PO 1,000 mg DAILY SUE Administration Aspirin 81 mg 12/25/18 10:00 12/26/18 11:55 Ecotrin - PO 81 mg DAILY SUE Administration Atenolol 25 mg 12/25/18 23:00 12/25/18 22:32 Tenormin - PO 25 mg 2300 SUE Administration Atorvastatin Calcium 10 mg 12/25/18 22:00 12/25/18 22:32 Lipitor - PO 10 mg 2200 SUE Administration Dexamethasone Sodium Phosphate 4 mg 12/26/18 06:00 12/26/18 15:58 Decadron Injection - IVPUSH 4 mg Q6H-IV SUE Administration Insulin Aspart 1 vial 12/25/18 16:30 12/26/18 17:25 Novolog Vial Sliding Scale - SQ Not Given ACHS [facility] [place] Protocol Levothyroxine Sodium 112 mcg 12/26/18 07:00 12/26/18 06:44 Synthroid - PO Not Given 0700 SUE Non-Formulary Medication 1 tab 12/25/18 10:00 Beta-Carotene(A) W-C And E/Min PO DAILY SUE Non-Formulary Medication 20 mg 12/25/18 10:00 Lutein [Lutein] PO DAILY SUE Non-Formulary Medication 15 mg 12/25/18 12:00 Meloxicam [Meloxicam] PO 1200 SUE [id number] Ethyl Esters 2 gm 12/25/18 10:00 12/26/18 11:55 Lovaza - PO 2 gm BID SUE Administration ASSESSMENT/PLAN: Dispo: We will continue to follow the patient. Thank you for this consultative opportunity. <Jared Anders - Last Filed: 12/26/18 20:11> Visit type - Emergency Visit Emergency Visit: Yes ED Registration Date: 12/25/18 Care time: The patient presented to the Emergency Department on the above date and was hospitalized for further evaluation of their emergent condition. - New Patient This patient is new to me today: Yes Date on this admission: 12/26/18 - Critical Care Critical Care patient: No <Ana Holley - Last Filed: 12/26/18 18:53> ATTENDING PHYSICIAN STATEMENT I saw and evaluated the patient. I reviewed the resident's note and discussed the case with the resident. I agree with the resident's findings and plan as documented. SUBJECTIVE: OBJECTIVE: ASSESSMENT AND PLAN: <Ana Holley - Last Filed: 12/26/18 18:53> ATTENDING PHYSICIAN STATEMENT I saw and evaluated the patient. I reviewed the resident's note and discussed the case with the resident. I agree with the resident's findings and plan as documented. SUBJECTIVE: 78 y/o lady with a PMHx, HTN, DM, COPD, osteopenia, rheumatic fever, possible lung malignancy, presented to the ED because of b/l LE pain and lower back pain. Admitted with intractable back and lower extremity pain. Mentioned old back pain and limited motility of the Left leg. Frustrated with having to wait for imaging procedures OBJECTIVE: General: NAD CVS: S1, S2 Lungs: Faint crackles in L base Abdomen: Soft, NT, ND Extremities: No edema; Neuro: Moves upper extremities. Moves R leg and L with difficulty Psych: Alert, oriented, conversant Lumbar MRI: L4 compression fx, multi level HNP, foraminal and central canal stenosis. Recent CT scan which revealed a RLL mass 3.1x2.5x1.8cm ASSESSMENT AND PLAN: 78 y/o lady admitted with intractable back pain and recently identified RLL mass. 1. Agree with Orthopedic Surgery consult 2. Agree with PET CT for staging. 3. Will need tissue biopsy to determine histology. 4. Consider Brain MRI to complete staging 5. Consider L adrenal biopsy, after initial staging as may change treatment strategy 6. Thank you for this consultation <Jared Anders - Last Filed: 12/26/18 20:11>
--- NOTE | 2018-12-26 11:18 | CONSULT ---
Consult - text type - Consultation Consultation Note: NEUROLOGY CONSULTATION is greatly appreciated: Events reviewed. LS MRI reviewed. Pt examined in the ED last night and case discussed with Dr. Paz last night. This 78 yo RH woman lives alone. PMH sig for:HTN, DM, Hypothyroidism,Chol, Chronic LBP, and a recently discovered pulmonary "nodule." Maintained on: Acetaminophen; Albuterol; Atenolol; Levothyroxine; Meloxicam; Metformin; and Simvastatin 10 mg. Admitted after the sudden-onset of weakness in both legs with numbness, loss of ambulation and bladder urgency. MRI of LS spine (reviewed) show moderately advanced Spondylosis with facet hypertrophy and mucltiple leves of spinal stenosis worst at L3L4. PAUL: No head trauma. No bruits. Cor Reg. Neg SLR. ++Mid-thoracic palpation tenderness. In diaper. NEURO: MS/speech: Normal CN II-XII: normal Motor: No drift or tremor. Normal arm strength. Legs 3-4-/5 with variable effort. Probably antigravity all groups. Brisk KJ's wtih crossed adduction. Left Babinski. Decreased AJ's (but present on the left). Coord: No FTN dystaxia Sensory: Decreased vibration to both knees. Decreased pinprick to the level of the breasts, B/L IMP: 1. 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 R/O epidural metastasis 2. Severe LS spinal stenosis Suggest: STAT MRI of Thoracic spine. Decadron 10 mg tonight then 4 mg IVPB q 6 hrs while following BG's. Further recommendations will follow Thoracic MRI results. Thank you very much, Tahir Hinojosa MD
--- NOTE | 2018-12-26 11:50 | CONS ---
PULMONARY CONSULTATION DATE OF CONSULTATION: 12/25/2018 REFERRING PHYSICIAN: Michael Paz MD The patient is a 78-year-old white female. Past medical history includes rheumatic fever during childhood, a history of COPD, osteoarthritis, osteopenia, diabetes, hypertension, longstanding history of tobacco use, approximately 1 pack per day for many years, still smoking. Recently noted to have a right lower lobe nodule on CAT scan. Patient is scheduled to undergo a PET scan, who was admitted to [facility] with complaint of inability to ambulate, lower extremity weakness, and back pain. Patient had complained of sacroiliac pain radiating to bilateral lower extremities. She noticed that she has been having progressive weakness in the lower extremities, and back pain. She presented to the emergency room. She denies any local trauma. She denies any falls. She denies any history of hemoptysis, chest pain, nausea, vomiting, or diaphoresis. Denies any fevers, weight loss, or night sweats. As stated before, she was recently noted on a CAT scan of the chest to have a new right lower lobe nodule. Workup has not been started. She is scheduled to go for a CAT scan on , the . Tissue diagnosis has not been obtained. The CAT scan is changed from previous exam in 2016. PAST MEDICAL HISTORY: Again includes a history of COPD, osteoarthritis, osteopenia, rheumatic fever, diabetes, and hypertension. REVIEW OF SYSTEMS: No orthopnea. No PND. No chest pain. No palpitations. Positive dyspnea on exertion. No hemoptysis. Positive back pain. Positive lower extremity weakness. CURRENT MEDICATIONS: Include meloxicam, dexamethasone, Tylenol, Lovaza, Ventolin, Tenormin, Lipitor, NovoLog, Ecotrin, Synthroid, and vitamin C. PHYSICAL EXAMINATION: General: The patient is a well-developed, well-nourished female, aware, alert, in no acute distress. Vital Signs: She is afebrile. Blood pressure 111/61. Respiratory rate is 20. O2 saturation is 97% on room air. HEENT: Normocephalic, atraumatic. Neck: Supple without any adenopathy. Heart: Regular. S1, S2. Chest: Clear. Abdomen: Soft. Bowel sounds are positive. Extremities: No cyanosis or edema. LABORATORY DATA: WBC is 9.4, hemoglobin 14, hematocrit 40.4, with a platelet count of 240,000. BUN is 15, creatinine 0.7. Chest x-ray: No infiltrates and no effusions. Chest CT: As noted earlier. IMPRESSION: 1. Right lower lobe mass, likely bronchogenic carcinoma in view of longstanding history of tobacco use. 2. Chronic obstructive pulmonary disease, currently stable. 3. Diabetes. 4. Osteoarthritis. 5. Back pain. 6. Lower extremity weakness. 7. History of rheumatic fever. PLAN: Analgesics, bone scan, PET scan as outpatient, orthopedic and neurology consult.Pt will require bx RLL mass JOHAN RIGGINS M.D. MARIBETH/[id number]
[2018-12-26] MEDS: OMEGA-3 ACID ETHYL ESTERS (FATTY-ACIDS) 1 GM CAPSULE (FP) PO SCH ×2 (11:55→21:05)
[2018-12-26] MEDS: ASCORBIC ACID 500 MG TABLET (FP) PO SCH (11:55)
[2018-12-26] MEDS: ASPIRIN COATED 81 MG TABLET.EC PO SCH (11:55)
[2018-12-26] MEDS ORDERED: PT OWN MED DRAWER 7, Y5N ONE (12:01)
--- NOTE | 2018-12-26 14:49 | PN ---
Progress Note, Physician History of Present Illness: PULMONARY ALERT,NO DISTRESS,NEURO CONSULT NOTED FOR MRI OF SPINE - Current Medication List Current Medications: Active Medications Acetaminophen (Tylenol -) 650 mg PO Q6H PRN PRN Reason: PAIN LEVEL 7 - 10 Albuterol Sulfate (Ventolin Hfa Inhaler -) 1 puff IH Q4H PRN PRN Reason: SHORTNESS OF BREATH Albuterol Sulfate (Ventolin Hfa Inhaler -) 2 puff IH Q4H PRN PRN Reason: SHORTNESS OF BREATH Ascorbic Acid (Vitamin C -) 1,000 mg PO DAILY [facility] Last Admin: 12/26/18 11:55 Dose: 1,000 mg Aspirin (Ecotrin -) 81 mg PO DAILY [facility] Last Admin: 12/26/18 11:55 Dose: 81 mg Atenolol (Tenormin -) 25 mg PO 2300 [facility] Last Admin: 12/25/18 22:32 Dose: 25 mg Atorvastatin Calcium (Lipitor -) 10 mg PO 2200 [facility] Last Admin: 12/25/18 22:32 Dose: 10 mg Dexamethasone Sodium Phosphate (Decadron Injection -) 4 mg IVPUSH Q6H-IV [facility] Last Admin: 12/26/18 09:09 Dose: 4 mg Insulin Aspart (Novolog Vial Sliding Scale -) 1 vial SQ ACHS [facility]; Protocol Last Admin: 12/26/18 11:55 Dose: Not Given Levothyroxine Sodium (Synthroid -) 112 mcg PO 0700 [facility] Last Admin: 12/26/18 06:44 Dose: Not Given Non-Formulary Medication (Beta-Carotene(A) W-C And E/Min) 1 tab PO DAILY [facility] Non-Formulary Medication (Lutein [Lutein]) 20 mg PO DAILY [facility] Non-Formulary Medication (Meloxicam [Meloxicam]) 15 mg PO 1200 [facility] [id number]-[id number] Ethyl Esters (Lovaza -) 2 gm PO BID [facility] Last Admin: 12/26/18 11:55 Dose: 2 gm - Objective Vital Signs: Vital Signs Temperature 98.2 F 12/26/18 05:36 Pulse Rate 66 12/26/18 05:36 Respiratory Rate 20 12/26/18 05:36 Blood Pressure 111/61 12/26/18 05:36 O2 Sat by Pulse Oximetry (%) 97 12/26/18 00:36 Constitutional: Yes: Well Nourished, Calm Eyes: Yes: WNL HENT: Yes: WNL Neck: Yes: WNL Cardiovascular: Yes: Regular Rate and Rhythm, S1, S2 Respiratory: Yes: CTA Bilaterally Gastrointestinal: Yes: Normal Bowel Sounds, Soft Extremities: Yes: WNL Edema: No Labs: CBC, BMP 12/26/18 07:15 12/26/18 07:15 Problem List - Problems (1) Lung mass Code(s): R91.8 - OTHER NONSPECIFIC ABNORMAL FINDING OF LUNG FIELD (2) COPD (chronic obstructive pulmonary disease) Code(s): J44.9 - CHRONIC OBSTRUCTIVE PULMONARY DISEASE, UNSPECIFIED (3) Diabetes mellitus Code(s): E11.9 - TYPE 2 DIABETES MELLITUS WITHOUT COMPLICATIONS (4) Lower extremity weakness Code(s): R29.898 - OTH SYMPTOMS AND SIGNS INVOLVING THE MUSCULOSKELETAL SYSTEM (5) H/O: rheumatic fever Code(s): Z86.79 - PERSONAL HISTORY OF OTHER DISEASES OF THE CIRCULATORY SYSTEM (6) HTN (hypertension) Code(s): I10 - ESSENTIAL (PRIMARY) HYPERTENSION (7) Osteoarthritis Code(s): M19.90 - UNSPECIFIED OSTEOARTHRITIS, UNSPECIFIED SITE Assessment/Plan IMP RLL MASS LIKELY BRONCHOGENIC CA COPD DM OA BACK PAIN,LOWER EXT WEAKNESS H/O RHEUMATIC FEVER PLAN ANALGESICS BONE SCAN PET OUTPATIENT MRI T-SPINE DR RIGGINS Problem List - Problems (1) Lung mass Code(s): R91.8 - OTHER NONSPECIFIC ABNORMAL FINDING OF LUNG FIELD (2) COPD (chronic obstructive pulmonary disease) Code(s): J44.9 - CHRONIC OBSTRUCTIVE PULMONARY DISEASE, UNSPECIFIED (3) Diabetes mellitus Code(s): E11.9 - TYPE 2 DIABETES MELLITUS WITHOUT COMPLICATIONS (4) Lower extremity weakness Code(s): R29.898 - OTH SYMPTOMS AND SIGNS INVOLVING THE MUSCULOSKELETAL SYSTEM (5) H/O: rheumatic fever Code(s): Z86.79 - PERSONAL HISTORY OF OTHER DISEASES OF THE CIRCULATORY SYSTEM (6) HTN (hypertension) Code(s): I10 - ESSENTIAL (PRIMARY) HYPERTENSION (7) Osteoarthritis Code(s): M19.90 - UNSPECIFIED OSTEOARTHRITIS, UNSPECIFIED SITE
--- NOTE | 2018-12-26 15:01 | PN ---
Progress Note, Physician Chief Complaint: awaiting MRI of spine was supposed to get PET scan today at [facility] - Current Medication List Current Medications: Active Medications Acetaminophen (Tylenol -) 650 mg PO Q6H PRN PRN Reason: PAIN LEVEL 7 - 10 Albuterol Sulfate (Ventolin Hfa Inhaler -) 1 puff IH Q4H PRN PRN Reason: SHORTNESS OF BREATH Albuterol Sulfate (Ventolin Hfa Inhaler -) 2 puff IH Q4H PRN PRN Reason: SHORTNESS OF BREATH Ascorbic Acid (Vitamin C -) 1,000 mg PO DAILY [facility] Last Admin: 12/26/18 11:55 Dose: 1,000 mg Aspirin (Ecotrin -) 81 mg PO DAILY [facility] Last Admin: 12/26/18 11:55 Dose: 81 mg Atenolol (Tenormin -) 25 mg PO 2300 [facility] Last Admin: 12/25/18 22:32 Dose: 25 mg Atorvastatin Calcium (Lipitor -) 10 mg PO 2200 [facility] Last Admin: 12/25/18 22:32 Dose: 10 mg Dexamethasone Sodium Phosphate (Decadron Injection -) 4 mg IVPUSH Q6H-IV [facility] Last Admin: 12/26/18 09:09 Dose: 4 mg Insulin Aspart (Novolog Vial Sliding Scale -) 1 vial SQ ACHS [facility]; Protocol Last Admin: 12/26/18 11:55 Dose: Not Given Levothyroxine Sodium (Synthroid -) 112 mcg PO 0700 [facility] Last Admin: 12/26/18 06:44 Dose: Not Given Non-Formulary Medication (Beta-Carotene(A) W-C And E/Min) 1 tab PO DAILY [facility] Non-Formulary Medication (Lutein [Lutein]) 20 mg PO DAILY [facility] Non-Formulary Medication (Meloxicam [Meloxicam]) 15 mg PO 1200 [facility] Znvnr-1-Zjfp Ethyl Esters (Lovaza -) 2 gm PO BID [facility] Last Admin: 12/26/18 11:55 Dose: 2 gm - Objective Vital Signs: Vital Signs Temperature 98.2 F 12/26/18 05:36 Pulse Rate 66 12/26/18 05:36 Respiratory Rate 20 12/26/18 05:36 Blood Pressure 111/61 12/26/18 05:36 O2 Sat by Pulse Oximetry (%) 97 12/26/18 00:36 Constitutional: Yes: Calm Cardiovascular: Yes: Regular Rate and Rhythm, S1, S2 Respiratory: Yes: CTA Bilaterally, Diminished Gastrointestinal: Yes: Normal Bowel Sounds, Soft Edema: No Neurological: Yes: Alert, Oriented Labs: CBC, BMP 12/26/18 07:15 12/26/18 07:15 Problem List - Problems (1) Intractable back pain Assessment/Plan: MRI shows compression fracture RALPH consult MRI t spine orderd NEuro on board decadron Code(s): M54.9 - DORSALGIA, UNSPECIFIED (2) Lung mass Assessment/Plan: RLL mass pet scan as outpatient Code(s): R91.8 - OTHER NONSPECIFIC ABNORMAL FINDING OF LUNG FIELD (3) Hypothyroid Assessment/Plan: tsh ordered synthroid Code(s): E03.9 - HYPOTHYROIDISM, UNSPECIFIED
[2018-12-26] MEDS ORDERED: INSULIN (NOVOLOG) ASPART 100 UNITS/ML 10ML VIAL ONE (20:49)
[2018-12-26] MEDS: ATORVASTATIN CA 10 MG TABLET (FP) PO SCH (21:05)
--- NOTE | 2018-12-26 21:18 | PN ---
Progress Note (short form) - Note Progress Note: NEUROLOGY PROGRESS: Events reviewed, Pt reexamined. Additional history of chronic bladder dysfunction followed by Dr. Frankie Aldana x "many years." Pt was OO Bed today ambulating with walker and PT. Seemingly better on steroids. MRI of thoracic spine (reviewed, not yet reported): No vertebral lesions are bound. No epidural masses or cord compression. Some irregular image in the CSF is the posterior aspect T6-9, probably artifactual. EXAM: Ankle and toe dorsiflexion 5/5 Variable effort on hip flexion- cannot r/o proximal weakness. Decreased vibration to the knees, B/L Brisk KJ's, absent AJ's. IMP: No radiographic evidence of thoracic cord compression on my read of MRI. Severe LS spinal stenosis could explain most of the abnormalities on exam. SUGGEST: Await official MRI read and taper steroids if no radiological correlate of myelopathy Check B12, TSH, CK for proximal weakness EMG/ NCS legs Await NS opinion Re: severe LS spinal stenosis. Thank you very much, Tahir Hinojosa MD
[2018-12-26] MEDS: ATENOLOL 25 MG TABLET (FP) PO SCH (22:34)
[2018-12-26] MEDS ORDERED: MELATONIN 5 MG TABLETS PO ONE (22:46)
[2018-12-27] MEDS ORDERED: PT OWN MED DRAWER 7, Y5N ONE ×3 (01:12→17:15)
[2018-12-27] MEDS: DEXAMETHASONE SOD PHOSPHATE 4 MG/1 ML VIAL IVPUSH SCH ×3 (02:56→22:07)
[2018-12-27] MEDS: LEVOTHYROXINE 112 MCG PO SCH (06:01)
[2018-12-27] MEDS: INSULIN SLIDING SCALE (NOVOLOG) 1 VIAL SQ SCH ×4 (06:02→22:07)
[2018-12-27 08:39] LABS: BASO % 0.2 % (0-2.0); HEMOGLOBIN 14.1 GM/dL (10.7-15.3); LYMPH % 8.6 % (8-40); MCH 29.8 pg (25.7-33.7); MCHC 33.7 g/dl (32.0-36.0); MEAN CELL VOLUME 88.5 fl (80-96); MEAN PLT VOLUME 9.5 fl (7.5-11.1); MONO % 2.5 % (3.8-10.2); NEUT % 88.7 % (42.8-82.8); PLATELET COUNT 302 K/MM3 (134-434); RBC 4.74 M/mm3 (3.60-5.2); RDW 13.7 % (11.6-15.6); WHITE BLOOD COUNT 13.8 K/mm3 (4.0-10.0)
--- NOTE | 2018-12-27 08:46 | PN ---
Progress Note (short form) - Note Progress Note: Ortho Pt seen and examined- L4 compression fx, multi level stenosis Selected Entries 12/27/18 05:56 Temperature 98.0 F Pulse Rate 67 Respiratory 20 Rate Blood Pressure 131/76 Laboratory Tests 12/26/18 07:15 WBC 11.9 H Hgb 14.8 Hct 44.2 Plt Count 264 + ttp, decr rom, decr strength a/p Neurosurgery f/u PT, wbat f/u TS MRI d/w Dr. Brambila
[2018-12-27 08:51] LABS: ALBUMIN 3.1 g/dl (3.4-5.0); BILIRUBIN,TOTAL 0.5 mg/dL (0.2-1); BLOOD UREA NITROGEN 19.1 mg/dL (7-18); CALCIUM 8.9 mg/dL (8.5-10.1); CREATININE 0.7 mg/dL (0.55-1.3); POTASSIUM 4.4 mmol/L (3.5-5.1); TOT PROT 6.5 g/dl (6.4-8.2)
--- NOTE | 2018-12-27 10:46 | CONSULT ---
Consult - text type - Consultation Consultation Note: NEUROSURGERY CONSULTATION Georgia Smith is a 78 year old female who has a history of recently diagnosed Lung cancer. She has a past medical history notable for hypertension, diabetes, COPD, and Osteoporosis. The patient had been in her relative state of good health as recently as Sunday, December 23, 2018. She has been using a cane and was able to carry out her activities of daily living. On Sunday, she had difficulty emerging from the bed due to pain in her lower back and lower extremities. She presented to the [facility] ER on Sunday, December 25 and complained of weakness in both legs and urinary difficulties. Due to her cancer history, concern was high for potential metastatic etiology. MRI Thoracic was obtained yesterday which did not reveal any clear tumor within the bones or epidural spaces and no pathological fractures or degenerative changes which could explain her symptoms. MRI Lumbar shows fairly significant degenerative changes at L23, L34 and L45 with facet and ligamentum flavum hypertrophy, disc bulging and lateral recess and canal stenosis which is severe and completely effaces the CSF around the nerve roots. Although there are listhesis and Modic changes, the extent that instability plays in her current condition is not clear. Patient was only briefly available during my two visits. Although she has multiple medical problems and appears to have improved overnight with steroids and pain medications, there may be a role for minimally invasive decompression of the Lumbar spine to address her severe stenosis and hopefully allow her improved mobility. Will discuss her overall medical fitness with Dr. Paz and examine patient further to develop a proposed plan of care.
[2018-12-27] MEDS: OMEGA-3 ACID ETHYL ESTERS (FATTY-ACIDS) 1 GM CAPSULE (FP) PO SCH ×2 (10:59→22:07)
[2018-12-27] MEDS: ASCORBIC ACID 500 MG TABLET (FP) PO SCH (10:59)
[2018-12-27] MEDS: ASPIRIN COATED 81 MG TABLET.EC PO SCH (11:00)
--- NOTE | 2018-12-27 11:20 | PN ---
Progress Note (short form) - Note Progress Note: NEUROLOGY PROGRESS: Events reviewed, orthopedic and neurosurgery consults read and appreciated. Reports improvement in back and low extremity pains with Decadron, however "hasn 't slept in days." No BM since Sunday. MRI of thoracic spine (reviewed): No vertebral lesions are found. No epidural masses or cord compression. Kyphosis with multi-level degenerative changes. MRI of LS spine (reviewed): Multilevel central canal stenoses secondary to posterior osteophyte complexes, most prominent at L3-L4, L4-L5. Acute L4 end plate compression fracture. Disc bulge at L3 resulting in L foraminal stenosis. CK 92; TSH 1.63; UA negative EXAM: Neg SLR. Ankle and toe dorsiflexion 5/5 Can lift R leg independently. Still some proximal weakness in L hip flexor. Decreased vibration to the ankles, B/L Brisk KJ's, absent AJ's. IMP: Severe LS spinal stenosis L3/L4, L4/L5. Left L3 foraminal stenosis. SUGGEST: Taper Decadron to 2 mg IVP q12H x 2 days, then D/C EMG/NCS of the legs Continue PT with walker as tolerate. Mobilize PT OOB to chair for meals. Thank you very much, Tahir Hinojosa MD
[2018-12-27] MEDS ORDERED: INSULIN (NOVOLOG) ASPART 100 UNITS/ML 10ML VIAL ONE (12:35)
--- NOTE | 2018-12-27 13:46 | PN ---
Progress Note, Physician History of Present Illness: PULMONARY ALERT,NO DISTRESS,-SOB,-CP - Current Medication List Current Medications: Active Medications Acetaminophen (Tylenol -) 650 mg PO Q6H PRN PRN Reason: PAIN LEVEL 7 - 10 Albuterol Sulfate (Ventolin Hfa Inhaler -) 1 puff IH Q4H PRN PRN Reason: SHORTNESS OF BREATH Albuterol Sulfate (Ventolin Hfa Inhaler -) 2 puff IH Q4H PRN PRN Reason: SHORTNESS OF BREATH Ascorbic Acid (Vitamin C -) 1,000 mg PO DAILY [facility] Last Admin: 12/27/18 10:59 Dose: 1,000 mg Aspirin (Ecotrin -) 81 mg PO DAILY [facility] Last Admin: 12/27/18 11:00 Dose: 81 mg Atenolol (Tenormin -) 25 mg PO 2300 [facility] Last Admin: 12/26/18 22:34 Dose: 25 mg Atorvastatin Calcium (Lipitor -) 10 mg PO 2200 [facility] Last Admin: 12/26/18 21:05 Dose: 10 mg Dexamethasone Sodium Phosphate (Decadron Injection -) 2 mg IVPUSH BID [facility] Stop: 12/29/18 21:59 Insulin Aspart (Novolog Vial Sliding Scale -) 1 vial SQ [facility]; Protocol Last Admin: 12/27/18 12:12 Dose: Not Given Non-Formulary Medication (Beta-Carotene(A) W-C And E/Min) 1 tab PO DAILY [facility] Non-Formulary Medication (Lutein [Lutein]) 20 mg PO DAILY [facility] Non-Formulary Medication (Meloxicam [Meloxicam]) 15 mg PO 1200 [facility] Levothyroxine ( (Levoxyl) 112 Mcg Tab) 1 each PO DAILY@0600 [facility] Last Admin: 12/27/18 06:01 Dose: 1 each Iuqmg-0-Thsl Ethyl Esters (Lovaza -) 2 gm PO BID [facility] Last Admin: 12/27/18 10:59 Dose: 2 gm - Objective Vital Signs: Vital Signs Temperature 98.0 F 12/27/18 05:56 Pulse Rate 67 12/27/18 05:56 Respiratory Rate 20 12/27/18 05:56 Blood Pressure 131/76 12/27/18 05:56 O2 Sat by Pulse Oximetry (%) 98 12/26/18 21:00 Constitutional: Yes: Well Nourished, Calm Eyes: Yes: WNL HENT: Yes: WNL Neck: Yes: WNL Cardiovascular: Yes: Regular Rate and Rhythm, S1, S2 Respiratory: Yes: CTA Bilaterally Gastrointestinal: Yes: Normal Bowel Sounds, Soft Extremities: Yes: WNL Edema: No Labs: CBC, BMP 12/27/18 07:00 12/27/18 07:00 Problem List - Problems (1) Lung mass Code(s): R91.8 - OTHER NONSPECIFIC ABNORMAL FINDING OF LUNG FIELD (2) COPD (chronic obstructive pulmonary disease) Code(s): J44.9 - CHRONIC OBSTRUCTIVE PULMONARY DISEASE, UNSPECIFIED (3) Diabetes mellitus Code(s): E11.9 - TYPE 2 DIABETES MELLITUS WITHOUT COMPLICATIONS (4) Lower extremity weakness Code(s): R29.898 - OTH SYMPTOMS AND SIGNS INVOLVING THE MUSCULOSKELETAL SYSTEM (5) H/O: rheumatic fever Code(s): Z86.79 - PERSONAL HISTORY OF OTHER DISEASES OF THE CIRCULATORY SYSTEM (6) HTN (hypertension) Code(s): I10 - ESSENTIAL (PRIMARY) HYPERTENSION (7) Osteoarthritis Code(s): M19.90 - UNSPECIFIED OSTEOARTHRITIS, UNSPECIFIED SITE Assessment/Plan IMP RLL MASS LIKELY BRONCHOGENIC CA COPD DM OA BACK PAIN,LOWER EXT WEAKNESS H/O RHEUMATIC FEVER PLAN ANALGESICS BONE SCAN PET OUTPATIENT DR RIGGINS Problem List - Problems (1) Lung mass Code(s): R91.8 - OTHER NONSPECIFIC ABNORMAL FINDING OF LUNG FIELD (2) COPD (chronic obstructive pulmonary disease) Code(s): J44.9 - CHRONIC OBSTRUCTIVE PULMONARY DISEASE, UNSPECIFIED (3) Diabetes mellitus Code(s): E11.9 - TYPE 2 DIABETES MELLITUS WITHOUT COMPLICATIONS (4) Lower extremity weakness Code(s): R29.898 - OTH SYMPTOMS AND SIGNS INVOLVING THE MUSCULOSKELETAL SYSTEM (5) H/O: rheumatic fever Code(s): Z86.79 - PERSONAL HISTORY OF OTHER DISEASES OF THE CIRCULATORY SYSTEM (6) HTN (hypertension) Code(s): I10 - ESSENTIAL (PRIMARY) HYPERTENSION (7) Osteoarthritis Code(s): M19.90 - UNSPECIFIED OSTEOARTHRITIS, UNSPECIFIED SITE
--- NOTE | 2018-12-27 13:58 | PN ---
Progress Note (short form) - Note Progress Note: Consult dictated Lung mass , adrenal lesion, hypodensities in liver on CT Severe lumbar canal stenosis with LE weakness and back pains. PET had been scheduled and cancelled in light of admission. Patient will have PET as outpatient and then tissue diagnosis. Depending on PET avidity will determine area to biopsy.
[2018-12-27] MEDS ORDERED: BISACODYL 5 MG TABLET.DR (FP) PO PRN (15:29)
--- NOTE | 2018-12-27 15:33 | PN ---
Progress Note, Physician Chief Complaint: seen and examined got a bone scan today has back pain on decadron as well - Current Medication List Current Medications: Active Medications Acetaminophen (Tylenol -) 650 mg PO Q6H PRN PRN Reason: PAIN LEVEL 7 - 10 Albuterol Sulfate (Ventolin Hfa Inhaler -) 1 puff IH Q4H PRN PRN Reason: SHORTNESS OF BREATH Albuterol Sulfate (Ventolin Hfa Inhaler -) 2 puff IH Q4H PRN PRN Reason: SHORTNESS OF BREATH Ascorbic Acid (Vitamin C -) 1,000 mg PO DAILY [facility] Last Admin: 12/27/18 10:59 Dose: 1,000 mg Aspirin (Ecotrin -) 81 mg PO DAILY [facility] Last Admin: 12/27/18 11:00 Dose: 81 mg Atenolol (Tenormin -) 25 mg PO 2300 [facility] Last Admin: 12/26/18 22:34 Dose: 25 mg Atorvastatin Calcium (Lipitor -) 10 mg PO 2200 [facility] Last Admin: 12/26/18 21:05 Dose: 10 mg Bisacodyl (Dulcolax -) 5 mg PO DAILY PRN PRN Reason: CONSTIPATION Dexamethasone Sodium Phosphate (Decadron Injection -) 2 mg IVPUSH BID [facility] Stop: 12/29/18 21:59 Insulin Aspart (Novolog Vial Sliding Scale -) 1 vial SQ [facility]; Protocol Last Admin: 12/27/18 12:12 Dose: Not Given Melatonin (Melatonin) 3 mg PO HS [facility] Metformin HCl (Glucophage -) 500 mg PO DAILY@0700 [facility] Non-Formulary Medication (Beta-Carotene(A) W-C And E/Min) 1 tab PO DAILY [facility] Non-Formulary Medication (Lutein [Lutein]) 20 mg PO DAILY [facility] Non-Formulary Medication (Meloxicam [Meloxicam]) 15 mg PO 1200 [facility] Levothyroxine ( (Levoxyl) 112 Mcg Tab) 1 each PO DAILY@0600 [facility] Last Admin: 12/27/18 06:01 Dose: 1 each [id number]-5-[id number] Ethyl Esters (Lovaza -) 2 gm PO BID [facility] Last Admin: 12/27/18 10:59 Dose: 2 gm - Objective Vital Signs: Vital Signs Temperature 98.0 F 12/27/18 05:56 Pulse Rate 67 12/27/18 05:56 Respiratory Rate 19 12/27/18 09:00 Blood Pressure 131/76 12/27/18 05:56 O2 Sat by Pulse Oximetry (%) 98 12/27/18 09:00 Constitutional: Yes: Calm Cardiovascular: Yes: Regular Rate and Rhythm, S1, S2 Respiratory: Yes: CTA Bilaterally Gastrointestinal: Yes: Normal Bowel Sounds, Soft Edema: No Neurological: Yes: Alert, Oriented Labs: CBC, BMP 12/27/18 07:00 12/27/18 07:00 Problem List - Problems (1) Intractable back pain Assessment/Plan: MRI shows compression fracture RALPH consult noted MRI t spine orderd- no neoplastic disease noted NEuro on board decadron for two more days meloxicam Code(s): M54.9 - DORSALGIA, UNSPECIFIED (2) Lung mass Assessment/Plan: RLL mass pet scan as outpatient Code(s): R91.8 - OTHER NONSPECIFIC ABNORMAL FINDING OF LUNG FIELD (3) Hypothyroid Assessment/Plan: tsh ordered synthroid Code(s): E03.9 - HYPOTHYROIDISM, UNSPECIFIED (4) Diabetes mellitus Assessment/Plan: metformin hgba1c ordered Code(s): E11.9 - TYPE 2 DIABETES MELLITUS WITHOUT COMPLICATIONS Qualifiers: Diabetes mellitus type: type 2
--- NOTE | 2018-12-27 16:57 | CONS ---
DATE OF CONSULTATION: 12/27/2018 HISTORY OF PRESENT ILLNESS: This is a 78-year-old female who enters with back pain as well as weakness of the lower extremities. Evaluation in the hospital revealed severe lumbar spinal canal stenosis. The patient is a smoker of 1 pack per day for many years. She is an ongoing smoker. She is followed by Dr. Ying and underwent a chest CT which revealed a right lower lobe nodule. She was scheduled for a PET scan but presented to the hospital in view of her lower extremity weakness. PAST MEDICAL HISTORY: Past history includes COPD, arthritis, history of rheumatic fever, diabetes and hypertension. REVIEW OF SYSTEMS: No headaches, diplopia, epistaxis, dysphagia, short of breath. No cough. No chest pain, palpitations. No nausea, vomiting, diarrhea. No dysuria, hematuria, lower extremity weakness, back pain. The patient goes for annual mammograms which have been negative. CURRENT MEDICATIONS: Include beta keratein, lutein for the eyes, meloxicam, Synthroid, Decadron being tapered, Tylenol, Lovaza, albuterol, Tenormin, Lipitor, insulin, Ecotrin, vitamin C. ALLERGIES: Include TOMATOES, STRAWBERRIES, POMEGRANATE, PINEAPPLE, CIPROFLOXACIN, FESOTERODINE. CURRENT PHYSICAL EXAMINATION: GENERAL: The patient is in no acute distress. VITAL SIGNS: Blood pressure 131/76, pulse 67, respirations 20, afebrile. HEENT: YUSUF, EOM intact. Oropharynx unremarkable. NECK: No cervical supraclavicular nodes. LUNGS: Clear to palpation and auscultation. CARDIAC: RSR. BREAST: No masses. ABDOMEN: Soft, no organomegaly. EXTREMITIES: No significant edema. LABORATORY: WBC 13.8, hematocrit 42, platelets 302, 88 polycytes, 9 lymphocytes. Chemistry: 138 sodium, potassium 4.4, chloride 105, CO2 of 26, creatinine 0.7, glucose 138, calcium 8.9, AST 13, ALT 21, alkaline phosphatase 110, protein 6.5, albumin 3.1. Triglycerides 63, cholesterol 145, HDL 59, TSH 1.63. CT scan which reveals COPD changes, irregular right lower lobe mass, prominent left adrenal hepatic hypodensities. IMPRESSION: This 78-year-old female presents with lower extremity weakness. She is a heavy smoker and continues to smoke. She has an abnormal CT with a right lower lobe mass. She needs the PET scan. If the adrenal is positive on PET she needs an adrenal biopsy. She needs evaluation of the liver in view of the hepatic hypodensities based upon PET scan. She needs a tissue diagnosis. A tissue biopsy will be dependent upon the PET scan evaluation of lung which can be biopsied versus liver and adrenal gland. After tissue diagnosis, further recommendations. Thank you. JENNIFER LEHMAN M.D. [id number]
[2018-12-27] MEDS ORDERED: metFORMIN HCL 500 MG TABLET (FP) PO SCH (18:00)
[2018-12-27] MEDS ORDERED: MELATONIN 1 MG TABLET PO SCH (22:00)
[2018-12-27] MEDS: ATORVASTATIN CA 10 MG TABLET (FP) PO SCH (22:07)
[2018-12-27] MEDS: ATENOLOL 25 MG TABLET (FP) PO SCH (22:07)
[2018-12-28] MEDS ORDERED: PT OWN MED DRAWER 7, Y5N ONE (05:44)
[2018-12-28] MEDS: LEVOTHYROXINE 112 MCG PO SCH (05:51)
[2018-12-28] MEDS: INSULIN SLIDING SCALE (NOVOLOG) 1 VIAL SQ SCH ×4 (06:15→23:06)
[2018-12-28] MEDS ORDERED: metFORMIN HCL 500 MG TABLET (FP) PO SCH (07:00)
[2018-12-28 08:20] LABS: BASO % 0.6 % (0-2.0); EOS % 0.1 % (0-4.5); HEMATOCRIT 42.4 % (32.4-45.2); HEMOGLOBIN 14.3 GM/dL (10.7-15.3); LYMPH % 16.5 % (8-40); MCH 29.7 pg (25.7-33.7); MCHC 33.7 g/dl (32.0-36.0); MEAN CELL VOLUME 88.2 fl (80-96); MEAN PLT VOLUME 9.2 fl (7.5-11.1); MONO % 5.8 % (3.8-10.2); PLATELET COUNT 304 K/MM3 (134-434); RBC 4.81 M/mm3 (3.60-5.2); RDW 13.7 % (11.6-15.6); WHITE BLOOD COUNT 13.4 K/mm3 (4.0-10.0)
[2018-12-28] MEDS: DEXAMETHASONE SOD PHOSPHATE 4 MG/1 ML VIAL IVPUSH SCH ×2 (10:15→23:06)
[2018-12-28] MEDS: OMEGA-3 ACID ETHYL ESTERS (FATTY-ACIDS) 1 GM CAPSULE (FP) PO SCH ×2 (10:15→23:06)
[2018-12-28] MEDS: ASCORBIC ACID 500 MG TABLET (FP) PO SCH (10:15)
[2018-12-28] MEDS: ASPIRIN COATED 81 MG TABLET.EC PO SCH (10:15)
--- NOTE | 2018-12-28 13:46 | PN ---
Progress Note, Physician History of Present Illness: pulmonary alert,no distress,-sob - Current Medication List Current Medications: Active Medications Acetaminophen (Tylenol -) 650 mg PO Q6H PRN PRN Reason: PAIN LEVEL 7 - 10 Albuterol Sulfate (Ventolin Hfa Inhaler -) 1 puff IH Q4H PRN PRN Reason: SHORTNESS OF BREATH Albuterol Sulfate (Ventolin Hfa Inhaler -) 2 puff IH Q4H PRN PRN Reason: SHORTNESS OF BREATH Ascorbic Acid (Vitamin C -) 1,000 mg PO DAILY [facility] Last Admin: 12/28/18 10:15 Dose: 1,000 mg Aspirin (Ecotrin -) 81 mg PO DAILY [facility] Last Admin: 12/28/18 10:15 Dose: 81 mg Atenolol (Tenormin -) 25 mg PO 2300 [facility] Last Admin: 12/27/18 22:07 Dose: 25 mg Atorvastatin Calcium (Lipitor -) 10 mg PO 2200 [facility] Last Admin: 12/27/18 22:07 Dose: 10 mg Bisacodyl (Dulcolax -) 5 mg PO Q24H PRN PRN Reason: CONSTIPATION Last Admin: 12/27/18 16:29 Dose: 5 mg Dexamethasone Sodium Phosphate (Decadron Injection -) 2 mg IVPUSH BID [facility] Stop: 12/29/18 21:59 Last Admin: 12/28/18 10:15 Dose: 2 mg Insulin Aspart (Novolog Vial Sliding Scale -) 1 vial SQ ACHS [facility]; Protocol Last Admin: 12/28/18 12:03 Dose: Not Given Melatonin (Melatonin) 3 mg PO HS [facility] Last Admin: 12/27/18 22:10 Dose: 3 mg Metformin HCl (Glucophage -) 500 mg PO DAILY@1800 [facility] Last Admin: 12/27/18 17:46 Dose: 500 mg Non-Formulary Medication (Beta-Carotene(A) W-C And E/Min) 1 tab PO DAILY [facility] Non-Formulary Medication (Lutein [Lutein]) 20 mg PO DAILY [facility] Non-Formulary Medication (Meloxicam [Meloxicam]) 15 mg PO 1200 [facility] Levothyroxine ( (Levoxyl) 112 Mcg Tab) 1 each PO DAILY@0600 [facility] Last Admin: 12/28/18 05:51 Dose: 1 each Aedku-7-Edbv Ethyl Esters (Lovaza -) 2 gm PO BID [facility] Last Admin: 12/28/18 10:15 Dose: 2 gm - Objective Vital Signs: Vital Signs Temperature 98.7 F 12/28/18 12:00 Pulse Rate 69 12/28/18 12:00 Respiratory Rate 20 12/28/18 12:00 Blood Pressure 122/64 12/28/18 12:00 O2 Sat by Pulse Oximetry (%) 99 12/28/18 09:00 Constitutional: Yes: Well Nourished, Calm Eyes: Yes: WNL HENT: Yes: WNL Neck: Yes: WNL Cardiovascular: Yes: Regular Rate and Rhythm, S1, S2 Respiratory: Yes: CTA Bilaterally Gastrointestinal: Yes: Normal Bowel Sounds, Soft Extremities: Yes: WNL Edema: No Labs: CBC, BMP 12/28/18 07:05 Problem List - Problems (1) Lung mass Code(s): R91.8 - OTHER NONSPECIFIC ABNORMAL FINDING OF LUNG FIELD (2) COPD (chronic obstructive pulmonary disease) Code(s): J44.9 - CHRONIC OBSTRUCTIVE PULMONARY DISEASE, UNSPECIFIED (3) Diabetes mellitus Code(s): E11.9 - TYPE 2 DIABETES MELLITUS WITHOUT COMPLICATIONS Qualifiers: Diabetes mellitus type: type 2 (4) Lower extremity weakness Code(s): R29.898 - OTH SYMPTOMS AND SIGNS INVOLVING THE MUSCULOSKELETAL SYSTEM (5) H/O: rheumatic fever Code(s): Z86.79 - PERSONAL HISTORY OF OTHER DISEASES OF THE CIRCULATORY SYSTEM (6) HTN (hypertension) Code(s): I10 - ESSENTIAL (PRIMARY) HYPERTENSION (7) Osteoarthritis Code(s): M19.90 - UNSPECIFIED OSTEOARTHRITIS, UNSPECIFIED SITE Assessment/Plan IMP RLL MASS LIKELY BRONCHOGENIC CA COPD DM OA BACK PAIN,LOWER EXT WEAKNESS H/O RHEUMATIC FEVER PLAN ANALGESICS BONE SCAN RESULTS PENDING PET OUTPATIENT OBTAIN BX (LUNG,ADRENAL OR LIVER) PENDING RESULTS OF PET SCAN DR RIGGINS Problem List - Problems (1) Lung mass Code(s): R91.8 - OTHER NONSPECIFIC ABNORMAL FINDING OF LUNG FIELD (2) COPD (chronic obstructive pulmonary disease) Code(s): J44.9 - CHRONIC OBSTRUCTIVE PULMONARY DISEASE, UNSPECIFIED (3) Diabetes mellitus Code(s): E11.9 - TYPE 2 DIABETES MELLITUS WITHOUT COMPLICATIONS (4) Lower extremity weakness Code(s): R29.898 - OTH SYMPTOMS AND SIGNS INVOLVING THE MUSCULOSKELETAL SYSTEM (5) H/O: rheumatic fever Code(s): Z86.79 - PERSONAL HISTORY OF OTHER DISEASES OF THE CIRCULATORY SYSTEM (6) HTN (hypertension) Code(s): I10 - ESSENTIAL (PRIMARY) HYPERTENSION (7) Osteoarthritis Code(s): M19.90 - UNSPECIFIED OSTEOARTHRITIS, UNSPECIFIED SITE
--- NOTE | 2018-12-28 13:53 | PN ---
Progress Note, Physician - Current Medication List Current Medications: Active Medications Acetaminophen (Tylenol -) 650 mg PO Q6H PRN PRN Reason: PAIN LEVEL 7 - 10 Albuterol Sulfate (Ventolin Hfa Inhaler -) 1 puff IH Q4H PRN PRN Reason: SHORTNESS OF BREATH Albuterol Sulfate (Ventolin Hfa Inhaler -) 2 puff IH Q4H PRN PRN Reason: SHORTNESS OF BREATH Ascorbic Acid (Vitamin C -) 1,000 mg PO DAILY [facility] Last Admin: 12/28/18 10:15 Dose: 1,000 mg Aspirin (Ecotrin -) 81 mg PO DAILY [facility] Last Admin: 12/28/18 10:15 Dose: 81 mg Atenolol (Tenormin -) 25 mg PO 2300 [facility] Last Admin: 12/27/18 22:07 Dose: 25 mg Atorvastatin Calcium (Lipitor -) 10 mg PO 2200 [facility] Last Admin: 12/27/18 22:07 Dose: 10 mg Calcitonin (Miacalcin [place] -) 100 units NS DAILY [facility] Dexamethasone Sodium Phosphate (Decadron Injection -) 2 mg IVPUSH BID [facility] Stop: 12/29/18 21:59 Last Admin: 12/28/18 10:15 Dose: 2 mg Insulin Aspart (Novolog Vial Sliding Scale -) 1 vial SQ ACHS [facility]; Protocol Last Admin: 12/28/18 12:03 Dose: Not Given Metformin HCl (Glucophage -) 500 mg PO DAILY@1800 [facility] Last Admin: 12/27/18 17:46 Dose: 500 mg Non-Formulary Medication (Beta-Carotene(A) W-C And E/Min) 1 tab PO DAILY [facility] Non-Formulary Medication (Lutein [Lutein]) 20 mg PO DAILY [facility] Levothyroxine ( (Levoxyl) 112 Mcg Tab) 1 each PO DAILY@0600 [facility] Last Admin: 12/28/18 05:51 Dose: 1 each Ackgj-5-Fwst Ethyl Esters (Lovaza -) 2 gm PO BID [facility] Last Admin: 12/28/18 10:15 Dose: 2 gm Tramadol HCl (Ultram -) 50 mg PO Q8H PRN PRN Reason: PAIN LEVEL 6-10 - Objective Vital Signs: Vital Signs Temperature 98.7 F 12/28/18 12:00 Pulse Rate 69 12/28/18 12:00 Respiratory Rate 20 12/28/18 12:00 Blood Pressure 122/64 12/28/18 12:00 O2 Sat by Pulse Oximetry (%) 99 12/28/18 09:00 Cardiovascular: Yes: Regular Rate and Rhythm Respiratory: Yes: Regular, CTA Bilaterally Gastrointestinal: Yes: Normal Bowel Sounds, Soft Labs: CBC, BMP 12/28/18 07:05 12/27/18 07:00 Assessment/Plan - Problems (1) Intractable back pain Assessment/Plan: MRI shows compression fracture RALPH consult noted MRI t spine orderd- no neoplastic disease noted NEuro on board decadron for two more days meloxicam Code(s): M54.9 - DORSALGIA, UNSPECIFIED (2) Lung mass Assessment/Plan: RLL mass pet scan as outpatient Code(s): R91.8 - OTHER NONSPECIFIC ABNORMAL FINDING OF LUNG FIELD (3) Hypothyroid Assessment/Plan: tsh ordered synthroid Code(s): E03.9 - HYPOTHYROIDISM, UNSPECIFIED (4) Diabetes mellitus Assessment/Plan: metformin hgba1c ordered Code(s): E11.9 - TYPE 2 DIABETES MELLITUS WITHOUT COMPLICATIONS Qualifiers: Diabetes mellitus type: type 2
[2018-12-28] MEDS: BISACODYL 5 MG TABLET.DR (FP) PO SCH (14:27)
[2018-12-28] MEDS: ATENOLOL 25 MG TABLET (FP) PO SCH (23:06)
[2018-12-28] MEDS: traMADol HCL 50 MG TABLET PO PRN (23:06)
[2018-12-28] MEDS: ZOLPIDEM TARTRATE 5 MG TABLET PO PRN (23:06)
[2018-12-28] MEDS: ATORVASTATIN CA 10 MG TABLET (FP) PO SCH (23:06)
[2018-12-29] MEDS ORDERED: PT OWN MED DRAWER 7, Y5N ONE (06:10)
[2018-12-29] MEDS: INSULIN SLIDING SCALE (NOVOLOG) 1 VIAL SQ SCH ×4 (06:13→21:43)
[2018-12-29] MEDS: LEVOTHYROXINE 112 MCG PO SCH (06:13)
[2018-12-29] MEDS: ASCORBIC ACID 500 MG TABLET (FP) PO SCH (09:15)
[2018-12-29] MEDS: OMEGA-3 ACID ETHYL ESTERS (FATTY-ACIDS) 1 GM CAPSULE (FP) PO SCH ×2 (09:15→21:43)
[2018-12-29] MEDS: ASPIRIN COATED 81 MG TABLET.EC PO SCH (09:15)
[2018-12-29] MEDS: DEXAMETHASONE SOD PHOSPHATE 4 MG/1 ML VIAL IVPUSH SCH (10:24)
--- NOTE | 2018-12-29 11:10 | PN ---
Progress Note, Physician History of Present Illness: PULMONARY ALERT,NO DISTRESS,STILL LOWER EXT WEAKNESS,-CHANGE - Current Medication List Current Medications: Active Medications Acetaminophen (Tylenol -) 650 mg PO Q6H PRN PRN Reason: PAIN LEVEL 7 - 10 Albuterol Sulfate (Ventolin Hfa Inhaler -) 1 puff IH Q4H PRN PRN Reason: SHORTNESS OF BREATH Albuterol Sulfate (Ventolin Hfa Inhaler -) 2 puff IH Q4H PRN PRN Reason: SHORTNESS OF BREATH Ascorbic Acid (Vitamin C -) 1,000 mg PO DAILY [facility] Last Admin: 12/29/18 09:15 Dose: 1,000 mg Aspirin (Ecotrin -) 81 mg PO DAILY [facility] Last Admin: 12/29/18 09:15 Dose: 81 mg Atenolol (Tenormin -) 25 mg PO 2300 [facility] Last Admin: 12/28/18 23:06 Dose: Not Given Atorvastatin Calcium (Lipitor -) 10 mg PO 2200 [facility] Last Admin: 12/28/18 23:06 Dose: 10 mg Bisacodyl (Dulcolax -) 5 mg PO Q24H [facility] Last Admin: 12/28/18 14:27 Dose: 5 mg Calcitonin (Miacalcin [place] -) 100 units NS DAILY [facility] Dexamethasone Sodium Phosphate (Decadron Injection -) 2 mg IVPUSH BID [facility] Stop: 12/29/18 21:59 Last Admin: 12/29/18 10:24 Dose: 2 mg Insulin Aspart (Novolog Vial Sliding Scale -) 1 vial SQ ACHS [facility]; Protocol Last Admin: 12/29/18 06:13 Dose: Not Given Non-Formulary Medication (Beta-Carotene(A) W-C And E/Min) 1 tab PO DAILY [facility] Levothyroxine ( (Levoxyl) 112 Mcg Tab) 1 each PO DAILY@0600 [facility] Last Admin: 12/29/18 06:13 Dose: 1 each Jlcmg-7-Sjco Ethyl Esters (Lovaza -) 2 gm PO BID [facility] Last Admin: 12/29/18 09:15 Dose: 2 gm Tramadol HCl (Ultram -) 50 mg PO Q8H PRN PRN Reason: PAIN LEVEL 6-10 Last Admin: 12/28/18 23:06 Dose: 50 mg Zolpidem Tartrate (Ambien -) 5 mg PO HS PRN PRN Reason: INSOMNIA Last Admin: 12/28/18 23:06 Dose: 5 mg - Objective Vital Signs: Vital Signs Temperature 98.1 F 12/29/18 04:00 Pulse Rate 63 12/29/18 04:00 Respiratory Rate 16 12/29/18 04:00 Blood Pressure 115/69 12/29/18 04:00 O2 Sat by Pulse Oximetry (%) 99 12/28/18 21:00 Constitutional: Yes: Well Nourished, Calm Eyes: Yes: WNL HENT: Yes: WNL Neck: Yes: WNL Cardiovascular: Yes: Regular Rate and Rhythm, S1, S2 Respiratory: Yes: CTA Bilaterally Gastrointestinal: Yes: Normal Bowel Sounds, Soft Extremities: Yes: WNL Edema: No Labs: CBC, BMP 12/28/18 07:05 Problem List - Problems (1) Lung mass Code(s): R91.8 - OTHER NONSPECIFIC ABNORMAL FINDING OF LUNG FIELD (2) COPD (chronic obstructive pulmonary disease) Code(s): J44.9 - CHRONIC OBSTRUCTIVE PULMONARY DISEASE, UNSPECIFIED (3) Diabetes mellitus Code(s): E11.9 - TYPE 2 DIABETES MELLITUS WITHOUT COMPLICATIONS Qualifiers: Diabetes mellitus type: type 2 (4) Lower extremity weakness Code(s): R29.898 - OTH SYMPTOMS AND SIGNS INVOLVING THE MUSCULOSKELETAL SYSTEM (5) H/O: rheumatic fever Code(s): Z86.79 - PERSONAL HISTORY OF OTHER DISEASES OF THE CIRCULATORY SYSTEM (6) HTN (hypertension) Code(s): I10 - ESSENTIAL (PRIMARY) HYPERTENSION (7) Osteoarthritis Code(s): M19.90 - UNSPECIFIED OSTEOARTHRITIS, UNSPECIFIED SITE Assessment/Plan IMP RLL MASS LIKELY BRONCHOGENIC CA COPD DM OA BACK PAIN,LOWER EXT WEAKNESS H/O RHEUMATIC FEVER PLAN ANALGESICS BONE SCAN RESULTS PENDING PET OUTPATIENT OBTAIN BX (LUNG,ADRENAL OR LIVER) PENDING RESULTS OF PET SCAN DR RIGGINS Problem List - Problems (1) Lung mass Code(s): R91.8 - OTHER NONSPECIFIC ABNORMAL FINDING OF LUNG FIELD (2) COPD (chronic obstructive pulmonary disease) Code(s): J44.9 - CHRONIC OBSTRUCTIVE PULMONARY DISEASE, UNSPECIFIED (3) Diabetes mellitus Code(s): E11.9 - TYPE 2 DIABETES MELLITUS WITHOUT COMPLICATIONS (4) Lower extremity weakness Code(s): R29.898 - OTH SYMPTOMS AND SIGNS INVOLVING THE MUSCULOSKELETAL SYSTEM (5) H/O: rheumatic fever Code(s): Z86.79 - PERSONAL HISTORY OF OTHER DISEASES OF THE CIRCULATORY SYSTEM (6) HTN (hypertension) Code(s): I10 - ESSENTIAL (PRIMARY) HYPERTENSION (7) Osteoarthritis Code(s): M19.90 - UNSPECIFIED OSTEOARTHRITIS, UNSPECIFIED SITE
--- NOTE | 2018-12-29 11:44 | PN ---
Progress Note, Physician - Current Medication List Current Medications: Active Medications Acetaminophen (Tylenol -) 650 mg PO Q6H PRN PRN Reason: PAIN LEVEL 7 - 10 Albuterol Sulfate (Ventolin Hfa Inhaler -) 1 puff IH Q4H PRN PRN Reason: SHORTNESS OF BREATH Albuterol Sulfate (Ventolin Hfa Inhaler -) 2 puff IH Q4H PRN PRN Reason: SHORTNESS OF BREATH Ascorbic Acid (Vitamin C -) 1,000 mg PO DAILY [facility] Last Admin: 12/29/18 09:15 Dose: 1,000 mg Aspirin (Ecotrin -) 81 mg PO DAILY [facility] Last Admin: 12/29/18 09:15 Dose: 81 mg Atenolol (Tenormin -) 25 mg PO 2300 [facility] Last Admin: 12/28/18 23:06 Dose: Not Given Atorvastatin Calcium (Lipitor -) 10 mg PO 2200 [facility] Last Admin: 12/28/18 23:06 Dose: 10 mg Bisacodyl (Dulcolax -) 5 mg PO Q24H [facility] Last Admin: 12/28/18 14:27 Dose: 5 mg Calcitonin (Miacalcin [place] -) 100 units NS DAILY [facility] Cholecalciferol (Vitamin D3 -) 2,000 unit PO DAILY [facility] Dexamethasone Sodium Phosphate (Decadron Injection -) 2 mg IVPUSH BID [facility] Stop: 12/29/18 21:59 Last Admin: 12/29/18 10:24 Dose: 2 mg Insulin Aspart (Novolog Vial Sliding Scale -) 1 vial SQ ACHS [facility]; Protocol Last Admin: 12/29/18 11:32 Dose: Not Given Non-Formulary Medication (Beta-Carotene(A) W-C And E/Min) 1 tab PO DAILY [facility] Levothyroxine ( (Levoxyl) 112 Mcg Tab) 1 each PO DAILY@0600 [facility] Last Admin: 12/29/18 06:13 Dose: 1 each Xdvaw-1-Zoai Ethyl Esters (Lovaza -) 2 gm PO BID [facility] Last Admin: 12/29/18 09:15 Dose: 2 gm Tramadol HCl (Ultram -) 50 mg PO Q8H PRN PRN Reason: PAIN LEVEL 6-10 Last Admin: 12/28/18 23:06 Dose: 50 mg Zolpidem Tartrate (Ambien -) 5 mg PO HS PRN PRN Reason: INSOMNIA Last Admin: 12/28/18 23:06 Dose: 5 mg - Objective Vital Signs: Vital Signs Temperature 98.1 F 12/29/18 04:00 Pulse Rate 63 12/29/18 04:00 Respiratory Rate 16 12/29/18 04:00 Blood Pressure 115/69 12/29/18 04:00 O2 Sat by Pulse Oximetry (%) 99 12/28/18 21:00 Cardiovascular: Yes: Regular Rate and Rhythm Respiratory: Yes: Regular, CTA Bilaterally Gastrointestinal: Yes: Normal Bowel Sounds, Soft Labs: CBC, BMP 12/28/18 07:05 12/27/18 07:00 Assessment/Plan - Problems (1) Intractable back pain Assessment/Plan: MRI shows compression fracture RALPH consult noted MRI t spine orderd- no neoplastic disease noted NEuro on board decadron tramadol Code(s): M54.9 - DORSALGIA, UNSPECIFIED (2) Lung mass Assessment/Plan: RLL mass pet scan as outpatient Code(s): R91.8 - OTHER NONSPECIFIC ABNORMAL FINDING OF LUNG FIELD (3) Hypothyroid Assessment/Plan: tsh ordered synthroid Code(s): E03.9 - HYPOTHYROIDISM, UNSPECIFIED (4) Diabetes mellitus Assessment/Plan: metformin hgba1c ordered Code(s): E11.9 - TYPE 2 DIABETES MELLITUS WITHOUT COMPLICATIONS Qualifiers: Diabetes mellitus type: type 2
[2018-12-29] MEDS: CHOLECALCIFEROL (VIT D3) 1,000 UNIT (25 MCG) TABLET PO SCH (13:17)
[2018-12-29] MEDS: BISACODYL 5 MG TABLET.DR (FP) PO SCH (16:34)
[2018-12-29] MEDS: traMADol HCL 50 MG TABLET PO PRN (18:03)
[2018-12-29] MEDS: ATORVASTATIN CA 10 MG TABLET (FP) PO SCH (21:43)
[2018-12-29] MEDS: ATENOLOL 25 MG TABLET (FP) PO SCH (22:37)
[2018-12-29] MEDS: ZOLPIDEM TARTRATE 5 MG TABLET PO PRN (22:38)
[2018-12-30] MEDS ORDERED: PT OWN MED DRAWER 7, Y5N ONE (05:49)
[2018-12-30] MEDS: LEVOTHYROXINE 112 MCG PO SCH (06:06)
[2018-12-30] MEDS: INSULIN SLIDING SCALE (NOVOLOG) 1 VIAL SQ SCH ×4 (06:06→21:36)
[2018-12-30] MEDS: CHOLECALCIFEROL (VIT D3) 1,000 UNIT (25 MCG) TABLET PO SCH (09:13)
[2018-12-30] MEDS: OMEGA-3 ACID ETHYL ESTERS (FATTY-ACIDS) 1 GM CAPSULE (FP) PO SCH ×2 (09:13→21:35)
[2018-12-30] MEDS: ASCORBIC ACID 500 MG TABLET (FP) PO SCH (09:13)
[2018-12-30] MEDS: ASPIRIN COATED 81 MG TABLET.EC PO SCH (09:13)
--- NOTE | 2018-12-30 11:43 | PN ---
Progress Note (short form) - Note Progress Note: PULMONARY Denies shortness of breath, chest pain. c/o leg pain and weakness. Vital Signs Period Temp Pulse Resp BP Sys/[place]bol[place]o Pulse Ox Last 24 Hr 97.8 F-99.5 F 60-74 18-18 100-146/48-74 98 Gen: NAD at rest Heart: RRR Lung: decreased breath sounds at the bases Abd: soft, nontender Ext: no edema CBC, BMP 12/28/18 07:05 12/27/18 07:00 Active Medications Acetaminophen (Tylenol -) 650 mg PO Q6H PRN PRN Reason: PAIN LEVEL 7 - 10 Albuterol Sulfate (Ventolin Hfa Inhaler -) 1 puff IH Q4H PRN PRN Reason: SHORTNESS OF BREATH Albuterol Sulfate (Ventolin Hfa Inhaler -) 2 puff IH Q4H PRN PRN Reason: SHORTNESS OF BREATH Ascorbic Acid (Vitamin C -) 1,000 mg PO DAILY [facility] Last Admin: 12/30/18 09:13 Dose: 1,000 mg Aspirin (Ecotrin -) 81 mg PO DAILY [facility] Last Admin: 12/30/18 09:13 Dose: 81 mg Atenolol (Tenormin -) 25 mg PO 2300 [facility] Last Admin: 12/29/18 22:37 Dose: 25 mg Atorvastatin Calcium (Lipitor -) 10 mg PO 2200 [facility] Last Admin: 12/29/18 21:43 Dose: 10 mg Bisacodyl (Dulcolax -) 5 mg PO Q24H [facility] Last Admin: 12/29/18 16:34 Dose: Not Given Calcitonin (Miacalcin [place] -) 100 units NS DAILY [facility] Cholecalciferol (Vitamin D3 -) 2,000 unit PO DAILY [facility] Last Admin: 12/30/18 09:13 Dose: 2,000 unit Insulin Aspart (Novolog Vial Sliding Scale -) 1 vial SQ ACHS [facility]; Protocol Last Admin: 12/30/18 06:06 Dose: Not Given Levothyroxine ( (Levoxyl) 112 Mcg Tab) 1 each PO DAILY@0600 [facility] Last Admin: 12/30/18 06:06 Dose: 1 each Siina-2-Efuj Ethyl Esters (Lovaza -) 2 gm PO BID [facility] Last Admin: 12/30/18 09:13 Dose: 2 gm Tramadol HCl (Ultram -) 50 mg PO Q8H PRN PRN Reason: PAIN LEVEL 6-10 Last Admin: 12/29/18 18:03 Dose: 50 mg Zolpidem Tartrate (Ambien -) 5 mg PO HS PRN PRN Reason: INSOMNIA Last Admin: 12/29/18 22:38 Dose: 5 mg A/P RLL Lung Mass Lumbar Spinal Stenosis COPD Hypothyroidism Hyperlipidemia - pain control - PT/rehab - outpt PET scan and subsequent biopsy - DVT prophylaxis
[2018-12-30] MEDS ORDERED: CHOLECALCIFEROL (VIT D3) 1,000 UNIT (25 MCG) TABLET PO SCH (11:45)
[2018-12-30] MEDS: BISACODYL 5 MG TABLET.DR (FP) PO SCH (14:53)
[2018-12-30] MEDS: traMADol HCL 50 MG TABLET PO PRN (14:53)
--- NOTE | 2018-12-30 15:20 | PN ---
Progress Note, Physician Chief Complaint: patient just got back from MRI - Current Medication List Current Medications: Active Medications Acetaminophen (Tylenol -) 650 mg PO Q6H PRN PRN Reason: PAIN LEVEL 7 - 10 Albuterol Sulfate (Ventolin Hfa Inhaler -) 1 puff IH Q4H PRN PRN Reason: SHORTNESS OF BREATH Albuterol Sulfate (Ventolin Hfa Inhaler -) 2 puff IH Q4H PRN PRN Reason: SHORTNESS OF BREATH Ascorbic Acid (Vitamin C -) 1,000 mg PO DAILY [facility] Last Admin: 12/30/18 09:13 Dose: 1,000 mg Aspirin (Ecotrin -) 81 mg PO DAILY [facility] Last Admin: 12/30/18 09:13 Dose: 81 mg Atenolol (Tenormin -) 25 mg PO 2300 [facility] Last Admin: 12/29/18 22:37 Dose: 25 mg Atorvastatin Calcium (Lipitor -) 10 mg PO 2200 [facility] Last Admin: 12/29/18 21:43 Dose: 10 mg Bisacodyl (Dulcolax -) 5 mg PO Q24H [facility] Last Admin: 12/30/18 14:53 Dose: 5 mg Calcitonin (Miacalcin [place] -) 100 units NS DAILY [facility] Cholecalciferol (Vitamin D3 -) 4,000 unit PO DAILY [facility] Insulin Aspart (Novolog Vial Sliding Scale -) 1 vial SQ [facility]; Protocol Last Admin: 12/30/18 11:52 Dose: Not Given Levothyroxine ( (Levoxyl) 112 Mcg Tab) 1 each PO DAILY@0600 [facility] Last Admin: 12/30/18 06:06 Dose: 1 each Otjrj-8-Wjko Ethyl Esters (Lovaza -) 2 gm PO BID [facility] Last Admin: 12/30/18 09:13 Dose: 2 gm Tramadol HCl (Ultram -) 50 mg PO Q8H PRN PRN Reason: PAIN LEVEL 6-10 Last Admin: 12/30/18 14:53 Dose: 50 mg Zolpidem Tartrate (Ambien -) 5 mg PO HS PRN PRN Reason: INSOMNIA Last Admin: 12/29/18 22:38 Dose: 5 mg - Objective Vital Signs: Vital Signs Temperature 97.8 F 12/30/18 11:01 Pulse Rate 71 12/30/18 11:01 Respiratory Rate 18 12/30/18 11:01 Blood Pressure 127/74 12/30/18 11:01 O2 Sat by Pulse Oximetry (%) 98 12/29/18 21:00 Constitutional: Yes: Calm Cardiovascular: Yes: Regular Rate and Rhythm, S1, S2 Respiratory: Yes: CTA Bilaterally Gastrointestinal: Yes: Normal Bowel Sounds, Soft Edema: No Labs: CBC, BMP 12/28/18 07:05 12/27/18 07:00 Problem List - Problems (1) Intractable back pain Assessment/Plan: MRI shows compression fracture RALPH consult noted MRI t spine orderd- no neoplastic disease noted NEuro on board decadron for two more days meloxicam brain MRI done report pending Code(s): M54.9 - DORSALGIA, UNSPECIFIED (2) Lung mass Assessment/Plan: RLL mass pet scan as outpatient Code(s): R91.8 - OTHER NONSPECIFIC ABNORMAL FINDING OF LUNG FIELD (3) Hypothyroid Assessment/Plan: tsh ordered synthroid Code(s): E03.9 - HYPOTHYROIDISM, UNSPECIFIED (4) Diabetes mellitus Assessment/Plan: metformin hgba1c ordered Code(s): E11.9 - TYPE 2 DIABETES MELLITUS WITHOUT COMPLICATIONS Qualifiers: Diabetes mellitus type: type 2
[2018-12-30] MEDS: ATORVASTATIN CA 10 MG TABLET (FP) PO SCH (21:35)
[2018-12-30] MEDS: ATENOLOL 25 MG TABLET (FP) PO SCH (22:47)
[2018-12-30] MEDS: ZOLPIDEM TARTRATE 5 MG TABLET PO PRN (22:48)
[2018-12-31] MEDS: traMADol HCL 50 MG TABLET PO PRN (01:50)
[2018-12-31] MEDS ORDERED: PT OWN MED DRAWER 7, Y5N ONE ×2 (05:20→14:13)
[2018-12-31] MEDS: LEVOTHYROXINE 112 MCG PO SCH (05:22)
[2018-12-31] MEDS: INSULIN SLIDING SCALE (NOVOLOG) 1 VIAL SQ SCH ×3 (06:13→18:10)
--- NOTE | 2018-12-31 08:37 | PN ---
Progress Note, Physician - Current Medication List Current Medications: Active Medications Acetaminophen (Tylenol -) 650 mg PO Q6H PRN PRN Reason: PAIN LEVEL 7 - 10 Albuterol Sulfate (Ventolin Hfa Inhaler -) 1 puff IH Q4H PRN PRN Reason: SHORTNESS OF BREATH Albuterol Sulfate (Ventolin Hfa Inhaler -) 2 puff IH Q4H PRN PRN Reason: SHORTNESS OF BREATH Ascorbic Acid (Vitamin C -) 1,000 mg PO DAILY [facility] Last Admin: 12/30/18 09:13 Dose: 1,000 mg Aspirin (Ecotrin -) 81 mg PO DAILY [facility] Last Admin: 12/30/18 09:13 Dose: 81 mg Atenolol (Tenormin -) 25 mg PO 2300 [facility] Last Admin: 12/30/18 22:47 Dose: Not Given Atorvastatin Calcium (Lipitor -) 10 mg PO 2200 [facility] Last Admin: 12/30/18 21:35 Dose: 10 mg Bisacodyl (Dulcolax -) 5 mg PO Q24H [facility] Last Admin: 12/30/18 14:53 Dose: 5 mg Calcitonin (Miacalcin [place] -) 100 units NS DAILY [facility] Insulin Aspart (Novolog Vial Sliding Scale -) 1 vial SQ [facility]; Protocol Last Admin: 12/31/18 06:13 Dose: Not Given Levothyroxine ( (Levoxyl) 112 Mcg Tab) 1 each PO DAILY@0600 [facility] Last Admin: 12/31/18 05:22 Dose: 1 each Fiiuq-9-Htek Ethyl Esters (Lovaza -) 2 gm PO BID [facility] Last Admin: 12/30/18 21:35 Dose: 2 gm Tramadol HCl (Ultram -) 50 mg PO Q8H PRN PRN Reason: PAIN LEVEL 6-10 Last Admin: 12/31/18 01:50 Dose: 50 mg Zolpidem Tartrate (Ambien -) 5 mg PO HS PRN PRN Reason: INSOMNIA Last Admin: 12/30/18 22:48 Dose: 5 mg - Objective Vital Signs: Vital Signs Temperature 98.7 F 12/31/18 05:55 Pulse Rate 67 12/31/18 05:55 Respiratory Rate 18 12/31/18 05:55 Blood Pressure 127/63 12/31/18 05:55 O2 Sat by Pulse Oximetry (%) 96 12/30/18 21:00 Cardiovascular: Yes: Regular Rate and Rhythm Respiratory: Yes: Regular, CTA Bilaterally Gastrointestinal: Yes: Normal Bowel Sounds, Soft Labs: CBC, BMP 12/28/18 07:05 12/27/18 07:00 Assessment/Plan - Problems (1) Intractable back pain Assessment/Plan: MRI shows compression fracture RALPH consult noted MRI t spine orderd- no neoplastic disease noted NEuro on board tramadol Code(s): M54.9 - DORSALGIA, UNSPECIFIED (2) Lung mass Assessment/Plan: RLL mass pet scan as outpatient Code(s): R91.8 - OTHER NONSPECIFIC ABNORMAL FINDING OF LUNG FIELD (3) Hypothyroid Assessment/Plan: tsh ordered synthroid Code(s): E03.9 - HYPOTHYROIDISM, UNSPECIFIED (4) Diabetes mellitus Assessment/Plan: metformin hgba1c ordered Code(s): E11.9 - TYPE 2 DIABETES MELLITUS WITHOUT COMPLICATIONS Qualifiers: Diabetes mellitus type: type 2
[2018-12-31] MEDS: ASCORBIC ACID 500 MG TABLET (FP) PO SCH (09:27)
[2018-12-31] MEDS: CHOLECALCIFEROL (VIT D3) 1,000 UNIT (25 MCG) TABLET PO SCH ×2 (09:28→21:54)
[2018-12-31] MEDS: POLYETHYLENE GLYCOL 3350 119 GM BTL PO SCH (09:33)
[2018-12-31] MEDS: OMEGA-3 ACID ETHYL ESTERS (FATTY-ACIDS) 1 GM CAPSULE (FP) PO SCH ×2 (09:33→21:54)
[2018-12-31] MEDS ORDERED: CALCITONIN - SALMON SYNTHETIC 200 UNITS/SPRAY NS SCH (09:45)
--- NOTE | 2018-12-31 11:43 | PN ---
Progress Note (short form) - Note Progress Note: NEUROLOGY PROGRESS: Events reviewed, orthopedic and neurosurgery consults read and appreciated. Nuclear Scan only showed L4 vertebral collapse. Today ambulated with PT with walker and TSLO brace down hallway and back, however with persistent pains in R leg. Reporting discomfort with brace and would like conservative measures at this time if surgery could be delayed. Pending placement in rehab facility. FH++ mother and maternal siblings all with "Alzheimer's Disease" MRI of brain C- (reviewed): Mild cerebral atrophy with ex vacuo ventricular dilation. Chronic ischemic changes in both cerebral hemispheres and in L [place]. No evidence of metastatic disease. EXAM: Neg SLR. Ox x 3. Trump -> PMURT. 2/3 recall @ 3 min. No frontal release findings 4-/5 DF on R. Decreased vibration to the ankles, B/L Brisk KJ's, absent AJ's. Gait: Flexed, shuffling. Mild steppage on R. IMP: Severe LS spinal stenosis L3/L4, L4/L5. 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 Partial L4 vertebral collapse- age indeterminate SUGGEST: EMG/NCS of the legs can be done on an out patient basis Continue PT with walker as tolerated. Mobilize PT OOB to chair for meals. Pt would benefit from short term rehab stay Out patient neuro reassessment of LSSS for possible decompressive laminectomies (L34, L45) Doubt efficacy or need for TSLO Brace Thank you very much, Tahir Hinojosa MD
[2018-12-31] MEDS: BISACODYL 5 MG TABLET.DR (FP) PO SCH (14:10)
[2018-12-31] MEDS: ASPIRIN COATED 81 MG TABLET.EC PO SCH (14:14)
[2018-12-31] MEDS: CALCITONIN - SALMON SYNTHETIC 200 UNITS/SPRAY NS SCH (14:14)
--- NOTE | 2018-12-31 17:20 | PN ---
Physical Exam: SUBJECTIVE: Patient seen and examined. Offers no complaints. Denies new symptoms. No acute events overnight. OBJECTIVE: Vital Signs Period Temp Pulse Resp BP Sys/[place] Pulse Ox Last 24 Hr 97.7 F-98.7 F 66-90 18-18 96-128/56-63 96-96 GENERAL: Awake, alert, and fully oriented, in no acute distress. EYES: Pupils equal, round and reactive to light, sclera anicteric, conjunctiva clear. EARS, NOSE, THROAT: oropharynx clear without exudates. Moist mucous membranes NECK: supple without lymphadenopathy, JVD, or masses. LUNGS: CTA b/l, no rales rhonchi or wheezing HEART: RRR, no murmurs appreciated ABDOMEN: Soft, nontender, not distended, normoactive bowel sounds, No hepatomegaly or splenomegaly. MUSCULOSKELETAL: Lower back tenderness to palpation. LOWER EXTREMITIES: 2+ pulses, tenderness to palpation on b/l carl, R knee, calf tenderness b/l with no erythema or swelling. SKIN: Warm, dry, normal turgor, no rashes or lesions noted. Laboratory Results - last 24 hr 12/30/18 12/31/18 12/31/18 20:58 05:35 17:09 POC Glucometer 122 119 130 ASSESSMENT/PLAN: #RLL Lung Mass- r/o malignancy #Back Pain #L4 compression fracture -MRI T-spine- no neoplastic disease noted -MRI of brain- no metastatic disease noted -Bone scan with no evidence of metastasis. L4 unclear because of presence of fracture. -outpt PET scan and subsequent biopsy -follow pulm reccs -ortho and neurosurgery on board Visit type - Emergency Visit Emergency Visit: Yes ED Registration Date: 12/25/18 Care time: The patient presented to the Emergency Department on the above date and was hospitalized for further evaluation of their emergent condition. - New Patient This patient is new to me today: Yes Date on this admission: 01/01/19 - Critical Care Critical Care patient: No ATTENDING PHYSICIAN STATEMENT I saw and evaluated the patient. I reviewed the resident's note and discussed the case with the resident. I agree with the resident's findings and plan as documented. SUBJECTIVE: OBJECTIVE: ASSESSMENT AND PLAN:
[2018-12-31] MEDS ORDERED: ZOLPIDEM TARTRATE 5 MG TABLET PO PRN (19:26)
[2018-12-31] MEDS ORDERED: traMADol HCL 50 MG TABLET PO PRN (19:27)
[2018-12-31] MEDS: ATORVASTATIN CA 10 MG TABLET (FP) PO SCH (21:54)
[2018-12-31] MEDS: ATENOLOL 25 MG TABLET (FP) PO SCH (21:59)
[2018-12-31] MEDS ORDERED: INSULIN (NOVOLOG) ASPART 100 UNITS/ML 10ML VIAL ONE (22:18)
[2019-01-01] MEDS: INSULIN SLIDING SCALE (NOVOLOG) 1 VIAL SQ SCH ×3 (00:04→10:38)
[2019-01-01] MEDS ORDERED: PT OWN MED DRAWER 7, Y5N ONE ×4 (05:18→11:35)
[2019-01-01] MEDS: LEVOTHYROXINE 112 MCG PO SCH (05:44)
[2019-01-01] MEDS ORDERED: MAGNESIUM HYDROX 2400MG/30ML ORAL SUSPENSION 30 ML CUP PO ONE (09:22)
--- NOTE | 2019-01-01 09:26 | DS ---
Physical Examination Vital Signs: Vital Signs Temperature 98.0 F 01/01/19 06:00 Pulse Rate 66 01/01/19 06:00 Respiratory Rate 20 01/01/19 06:00 Blood Pressure 119/73 01/01/19 06:00 O2 Sat by Pulse Oximetry (%) 95 12/31/18 21:00 Cardiovascular: Yes: Regular Rate and Rhythm Respiratory: Yes: Regular, CTA Bilaterally Gastrointestinal: Yes: Normal Bowel Sounds, Soft Labs: CBC, BMP 12/28/18 07:05 12/27/18 07:00 Discharge Summary Reason For Visit: INTRACTABLE BACK PAIN Current Active Problems COPD (chronic obstructive pulmonary disease) (Acute) Diabetes mellitus (Acute) H/O: rheumatic fever (Acute) HTN (hypertension) (Acute) Hypothyroid (Acute) Intractable back pain (Acute) Lower extremity pain (Acute) Lower extremity weakness (Acute) Lung cancer (Acute) Lung mass (Acute) Osteoarthritis (Acute) Hospital Course: - Problems (1) Intractable back pain Assessment/Plan: MRI shows compression fracture RALPH consult noted MRI t spine orderd- no neoplastic disease noted NEuro on board IMP: Severe LS spinal stenosis L3/L4, L4/L5. 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 Partial L4 vertebral collapse- age indeterminate SUGGEST: EMG/NCS of the legs can be done on an out patient basis Continue PT with walker as tolerated. Mobilize PT OOB to chair for meals. Pt would benefit from short term rehab stay Out patient neuro reassessment of LSSS for possible decompressive laminectomies (L34, L45) Doubt efficacy or need for TSLO Brace tramadol Code(s): M54.9 - DORSALGIA, UNSPECIFIED (2) Lung mass Assessment/Plan: RLL mass pet scan as outpatient Code(s): R91.8 - OTHER NONSPECIFIC ABNORMAL FINDING OF LUNG FIELD (3) Hypothyroid Assessment/Plan: tsh ordered synthroid Code(s): E03.9 - HYPOTHYROIDISM, UNSPECIFIED (4) Diabetes mellitus Assessment/Plan: metformin hgba1c ordered Code(s): E11.9 - TYPE 2 DIABETES MELLITUS WITHOUT COMPLICATIONS Qualifiers: Diabetes mellitus type: type 2 CONSTIPATION MOM X1 SENNA HS MIRALAX QD LEUKOCYTOSIS DUE TO STEROIDS--FOLLOW UP LABE AT SNF PT TO GO TO SNF TO CONTINUE WITH PHYSICAL THERAPY Condition: Stable - Instructions Diet, Activity, Other Instructions: FOLLOW UP LABS IN ONE WEEK Disposition: [facility]USTODIAL FACILITY - Home Medications Comprehensive Discharge Medication List: Ambulatory Orders Acetaminophen [Tylenol] 650 mg PO 1800 12/24/18 Albuterol Sulfate [Proair Hfa] 1 - 2 inh IH Q4H PRN 12/24/18 Ascorbic Acid [Vitamin C] 1,000 mg PO DAILY 12/24/18 Aspirin [Aspirin EC] 81 mg PO DAILY 12/24/18 Atenolol [Tenormin -] 25 mg PO 2300 12/24/18 Beta-Carotene(A) W-C and E/Min [Ocuvite (Nf) -] 1 tab PO DAILY 12/24/18 Calcium Carbonate [Calcium] 1,000 mg PO 1800 12/24/18 Levothyroxine Sodium [Levoxyl] 112 mcg PO 0700 12/24/18 Lutein 20 mg PO DAILY 12/24/18 [place]-3/Dha/Epa/Fish Oil [Fish Oil 1,000 mg Softgel] 0 mg PO 1800 12/24/18 Simvastatin 10 mg PO 1800 12/24/18 Calcitonin-[place] [Miacalcin Sarah -] 1 spray NS DAILY spray.pump 01/01/19 Cholecalciferol (Vitamin D3) [Vitamin D3 -] 2,000 unit PO BID tab 01/01/19 Insulin Sliding Scale [Novolog Vial Sliding Scale -] 1 vial SQ ACHS units 01/01 Polyethylene Glycol 3350 [Miralax 119 gm Btl -] 17 gm PO DAILY bottle 01/01/19 Sennosides [Senna -] 2 tab PO HS tablet 01/01/19 Zolpidem Tartrate [Ambien] 5 mg PO HS PRN tablet MDD 1 01/01/19 traMADol HCL [Ultram -] 50 mg PO Q8H PRN tablet MDD 4 01/01/19
[2019-01-01] MEDS: OMEGA-3 ACID ETHYL ESTERS (FATTY-ACIDS) 1 GM CAPSULE (FP) PO SCH (10:25)
[2019-01-01] MEDS: POLYETHYLENE GLYCOL 3350 119 GM BTL PO SCH (10:35)
[2019-01-01] MEDS: ASCORBIC ACID 500 MG TABLET (FP) PO SCH (10:36)
[2019-01-01] MEDS: ASPIRIN COATED 81 MG TABLET.EC PO SCH (10:37)
[2019-01-01] MEDS: CALCITONIN - SALMON SYNTHETIC 200 UNITS/SPRAY NS SCH ×2 (10:37→10:48)
[2019-01-01] MEDS: CHOLECALCIFEROL (VIT D3) 1,000 UNIT (25 MCG) TABLET PO SCH (10:37)
[2019-01-01 11:38] VITALS: BP 132/48; PULSE 76; TEMP 98.6
[2019-01-01] MEDS ORDERED: SENNOSIDES 8.6MG TABLET (FP) PO SCH (22:00)
== END 2019-01-01 11:44 | DRG 543 ==
LOC: JER 12:07 → JERBED 12-25 02:57 → J6S 12-25 20:09
PROVIDERS: ADMIT Family Medicine; ATTEND Family Medicine
DX: M48.56XA Collapsed vertebra, not elsewhere classified, lumbar region, initial encounter for fracture (principal); C34.90 Malignant neoplasm of unspecified part of unspecified bronchus or lung; M48.07 Spinal stenosis, lumbosacral region; M48.061 Spinal stenosis, lumbar region without neurogenic claudication; E27.9 Disorder of adrenal gland, unspecified; I10 Essential (primary) hypertension; J44.9 Chronic obstructive pulmonary disease, unspecified; M85.80 Other specified disorders of bone density and structure, unspecified site; E11.9 Type 2 diabetes mellitus without complications; M79.604 Pain in right leg; M79.605 Pain in left leg; M19.90 Unspecified osteoarthritis, unspecified site; R29.898 Other symptoms and signs involving the musculoskeletal system; E03.9 Hypothyroidism, unspecified; Z86.79 Personal history of other diseases of the circulatory system
CPT/HCPCS: 36415; 70551-TC; 72100-TC-FY; 72146-TC; 72158-TC; 78306-TC; 80053; 80061; 81003; 82550; 82607; 82962; 83036; 83721; 84443; 85025; 85027; 87086; 93970-TC; 97116-GP; 97161-GP; 99284-25; A9503; A9579; J0131

== ENCOUNTER 2019-06-30 09:36 | Day surgery (SDC) | payer OTHER ==
[2019-06-09 17:09] VITALS: BMI 25.7
[2019-06-30 08:31] LABS: BASO % 0.9 % (0-2.0); EOS % 3.1 % (0-4.5); HEMATOCRIT 43.3 % (32.4-45.2); HEMOGLOBIN 14.5 GM/dL (10.7-15.3); LYMPH % 25.4 % (8-40); MCH 29.4 pg (25.7-33.7); MCHC 33.4 g/dl (32.0-36.0); MEAN PLT VOLUME 9.4 fl (7.5-11.1); MONO % 6.6 % (3.8-10.2); PLATELET COUNT 197 K/MM3 (134-434); RBC 4.92 M/mm3 (3.60-5.2); RDW 14.1 % (11.6-15.6); WHITE BLOOD COUNT 7.9 K/mm3 (4.0-10.0)
[2019-06-30 08:48] LABS: INR 0.97 (0.83-1.09); PROTHROMBIN TIME (PATIENT) 11.4 SEC (9.7-13.0)
[2019-06-30 09:05] LABS: ALBUMIN 3.7 g/dl (3.4-5.0); BILIRUBIN,TOTAL 0.3 mg/dL (0.2-1); BLOOD UREA NITROGEN 28.4 mg/dL (7-18); CALCIUM 9.1 mg/dL (8.5-10.1); CREATININE 0.7 mg/dL (0.55-1.3); MAGNESIUM 2.1 mg/dL (1.8-2.4); POTASSIUM 4.3 mmol/L (3.5-5.1); TOT PROT 6.7 g/dl (6.4-8.2)
[2019-06-30 16:30] VITALS: TEMP 97.9
[2019-06-30 17:24] VITALS: PULSE 74
[2019-06-30 17:29] VITALS: BP 120/62
== END 2019-06-30 17:00 | disposition home or self-care (01) ==
LOC: JRADIR 09:36
PROVIDERS: ATTEND Internal Medicine Hematology & Oncology
PROC: 02HV33Z Insertion of Infusion Device into Superior Vena Cava, Percutaneous Approach (ICD-10-PCS; principal; 2019-06-30)
PROC: B518ZZA Fluoroscopy of Superior Vena Cava, Guidance (ICD-10-PCS; 2019-06-30)
DX: C34.90 Malignant neoplasm of unspecified part of unspecified bronchus or lung (principal)
CPT/HCPCS: 36561; C1751; 36415; 77001-TC-FY; 80053; 82962; 83735; 85025; 85610; C1788

== ENCOUNTER 2019-07-01 07:07 | Day surgery (SDC) | payer OTHER ==
[2019-07-01] MEDS ORDERED: DEXAMETHASONE SODIUM PHOSPHATE 10 MG in SODIUM CHLORIDE 50 ML IVPB ONE (09:30)
[2019-07-01] MEDS ORDERED: PALONOSETRON HCL 0.25 MG/5 ML VIAL IVPUSH ONE (09:30)
[2019-07-01] MEDS ORDERED: SODIUM CHLORIDE IVPB ONE (10:00)
[2019-07-01] MEDS ORDERED: CARBOPLATIN IVPB ONE (10:00)
[2019-07-01] MEDS ORDERED: ETOPOSIDE IV ONE (10:30)
[2019-07-01] MEDS ORDERED: SODIUM CHLORIDE IV ONE (10:30)
[2019-07-01] MEDS ORDERED: SODIUM CHLORIDE 250 ML IV ONE (13:30)
[2019-07-01] MEDS ORDERED: PORTA CATH FLUSH 10 ML IVPUSH ONE (16:43)
[2019-07-01 16:44] VITALS: BP 138/68; PULSE 83; TEMP 98.1
== END 2019-07-01 15:20 | disposition home or self-care (01) ==
LOC: JONCCHEMO 07:07 → J7W 08:51 → JONCCHEMO 15:20
PROVIDERS: ATTEND Internal Medicine Hematology & Oncology
DX: Z51.11 Encounter for antineoplastic chemotherapy (principal); C34.90 Malignant neoplasm of unspecified part of unspecified bronchus or lung
CPT/HCPCS: 96367; 96413; 96415; 96417; J2469

== ENCOUNTER 2019-07-02 07:04 | Day surgery (SDC) | payer OTHER ==
[2019-07-02] MEDS ORDERED: DEXAMETHASONE SODIUM PHOSPHATE 10 MG in SODIUM CHLORIDE 50 ML IVPB ONE (09:30)
[2019-07-02] MEDS ORDERED: PALONOSETRON HCL 0.25 MG/5 ML VIAL IVPUSH ONE (09:30)
[2019-07-02] MEDS: SODIUM CHLORIDE 250 ML IV ONE ×2 (09:36→14:49)
[2019-07-02] MEDS ORDERED: SODIUM CHLORIDE IV ONE (10:00)
[2019-07-02] MEDS ORDERED: ETOPOSIDE IV ONE (10:00)
[2019-07-02] MEDS ORDERED: DEXAMETHASONE SOD PHOSPHATE 4 MG/1 ML VIAL IVPB ONE (15:00)
[2019-07-02 15:29] VITALS: BP 121/49; PULSE 77; TEMP 98.8
== END 2019-07-02 15:42 | disposition home or self-care (01) ==
LOC: JONCCHEMO 07:04 → J7W 09:16 → JONCCHEMO 15:42
PROVIDERS: ATTEND Internal Medicine Hematology & Oncology
DX: Z51.11 Encounter for antineoplastic chemotherapy (principal); C34.90 Malignant neoplasm of unspecified part of unspecified bronchus or lung
CPT/HCPCS: 96361; 96367; 96375; 96413; 96415; J2469

== ENCOUNTER 2019-07-03 07:09 | Day surgery (SDC) | payer OTHER ==
[2019-07-03] MEDS ORDERED: DEXAMETHASONE SODIUM PHOSPHATE 10 MG in SODIUM CHLORIDE 50 ML IVPB ONE (09:30)
[2019-07-03] MEDS ORDERED: PALONOSETRON HCL 0.25 MG/5 ML VIAL IVPUSH ONE (09:30)
[2019-07-03] MEDS ORDERED: ETOPOSIDE IV ONE (10:00)
[2019-07-03] MEDS ORDERED: SODIUM CHLORIDE IV ONE (10:00)
[2019-07-03] MEDS ORDERED: SODIUM CHLORIDE 250 ML IV ONE (13:00)
[2019-07-03 14:14] VITALS: TEMP 97.9
[2019-07-03] MEDS ORDERED: PORTA CATH FLUSH 10 ML IVPUSH ONE (14:20)
[2019-07-03 14:21] VITALS: BP 125/57; PULSE 72
== END 2019-07-03 13:30 | disposition home or self-care (01) ==
LOC: JONCCHEMO 07:09 → J7W 09:12 → JONCCHEMO 13:30
PROVIDERS: ATTEND Internal Medicine Hematology & Oncology
DX: Z51.11 Encounter for antineoplastic chemotherapy (principal); C34.90 Malignant neoplasm of unspecified part of unspecified bronchus or lung
CPT/HCPCS: 96361; 96375; 96413; 96415; J2469

== ENCOUNTER 2019-07-04 07:06 | Day surgery (SDC) | payer OTHER ==
[2019-07-04] MEDS ORDERED: PEGFILGRASTIM-CBQV (UDENYCA) 6 MG/0.6 ML SYRINGE SQ ONE (10:00)
[2019-07-04 15:04] VITALS: BP 114/71; PULSE 74; TEMP 97.9
== END 2019-07-04 13:15 | disposition home or self-care (01) ==
LOC: JONCCHEMO 07:06 → J7W 12:49 → JONCCHEMO 13:15
PROVIDERS: ATTEND Internal Medicine Hematology & Oncology
PROC: 3E013GC Introduction of Other Therapeutic Substance into Subcutaneous Tissue, Percutaneous Approach (ICD-10-PCS; principal; 2019-07-04)
DX: C34.90 Malignant neoplasm of unspecified part of unspecified bronchus or lung (principal); Z76.89 Persons encountering health services in other specified circumstances
CPT/HCPCS: 96372; Q5111

== ENCOUNTER 2019-07-22 05:39 | Day surgery (SDC) | payer OTHER ==
[2019-07-22 08:38] LABS: HEMATOCRIT 39.9 % (32.4-45.2); HEMOGLOBIN 13.4 GM/dL (10.7-15.3); MEAN CELL VOLUME 89.9 fl (80-96); RBC 4.43 M/mm3 (3.60-5.2); WHITE BLOOD COUNT 7.3 K/mm3 (4.0-10.0)
[2019-07-22 08:39] LABS: EOS % 0.9 % (0-4.5); LYMPH % 30.2 % (8-40); MCH 30.2 pg (25.7-33.7); MCHC 33.6 g/dl (32.0-36.0); MEAN PLT VOLUME 9.1 fl (7.5-11.1); MONO % 9.1 % (3.8-10.2); NEUT % 58.8 % (42.8-82.8); PLATELET COUNT 235 K/MM3 (134-434)
[2019-07-22 09:27] LABS: ALBUMIN 3.6 g/dl (3.4-5.0); BILIRUBIN,TOTAL 0.4 mg/dL (0.2-1); CREATININE 0.8 mg/dL (0.55-1.3); POTASSIUM 4.3 mmol/L (3.5-5.1); TOT PROT 6.6 g/dl (6.4-8.2)
[2019-07-22] MEDS ORDERED: PALONOSETRON HCL 0.25 MG/5 ML VIAL IVPUSH ONE (10:00)
[2019-07-22] MEDS ORDERED: DEXAMETHASONE SODIUM PHOSPHATE 10 MG in SODIUM CHLORIDE 50 ML IVPB ONE (10:00)
[2019-07-22] MEDS ORDERED: CARBOPLATIN IVPB ONE (10:30)
[2019-07-22] MEDS ORDERED: SODIUM CHLORIDE IVPB ONE (10:30)
[2019-07-22] MEDS ORDERED: SODIUM CHLORIDE 0.9% IV ONE (11:00)
[2019-07-22] MEDS ORDERED: ETOPOSIDE IV ONE (11:00)
[2019-07-22] MEDS ORDERED: SODIUM CHLORIDE 250 ML IV ONE (13:00)
[2019-07-22 15:15] VITALS: TEMP 98.4
[2019-07-22] MEDS ORDERED: PORTA CATH FLUSH 10 ML IVPUSH ONE (15:23)
[2019-07-22 15:31] VITALS: BP 119/61; PULSE 74
== END 2019-07-22 14:47 | disposition home or self-care (01) ==
LOC: JONCCHEMO 05:39 → J7W 09:33 → JONCCHEMO 14:47
PROVIDERS: ATTEND Internal Medicine Hematology & Oncology
PROC: 3E04305 Introduction of Other Antineoplastic into Central Vein, Percutaneous Approach (ICD-10-PCS; principal; 2019-07-22)
PROC: 3E043GC Introduction of Other Therapeutic Substance into Central Vein, Percutaneous Approach (ICD-10-PCS; 2019-07-22)
PROC: 3E0437Z Introduction of Electrolytic and Water Balance Substance into Central Vein, Percutaneous Approach (ICD-10-PCS; 2019-07-22)
DX: Z51.11 Encounter for antineoplastic chemotherapy (principal); C34.90 Malignant neoplasm of unspecified part of unspecified bronchus or lung; E11.9 Type 2 diabetes mellitus without complications; E78.00 Pure hypercholesterolemia, unspecified; J44.9 Chronic obstructive pulmonary disease, unspecified; Z85.51 Personal history of malignant neoplasm of bladder
CPT/HCPCS: 36415; 80053; 83735; 85025; 96361; 96375; 96413; 96415; 96417; J2469; J9181

== ENCOUNTER 2019-07-23 05:52 | Day surgery (SDC) | payer OTHER ==
[2019-07-23] MEDS ORDERED: SODIUM CHLORIDE 0.9% IV ONE (09:45)
[2019-07-23] MEDS ORDERED: SODIUM CHLORIDE 250 ML IV ONE (09:45)
[2019-07-23] MEDS ORDERED: DEXAMETHASONE SODIUM PHOSPHATE 10 MG in SODIUM CHLORIDE 50 ML IVPB ONE (09:45)
[2019-07-23] MEDS ORDERED: ETOPOSIDE IV ONE (09:45)
[2019-07-23] MEDS ORDERED: PALONOSETRON HCL 0.25 MG/5 ML VIAL IVPUSH ONE (09:45)
[2019-07-23 14:42] VITALS: BP 120/49; PULSE 84; TEMP 98.2
== END 2019-07-23 13:00 | disposition home or self-care (01) ==
LOC: JONCCHEMO 05:52 → J7W 09:16 → JONCCHEMO 13:00
PROVIDERS: ATTEND Internal Medicine Hematology & Oncology
PROC: 3E04305 Introduction of Other Antineoplastic into Central Vein, Percutaneous Approach (ICD-10-PCS; principal; 2019-07-23)
PROC: 3E043GC Introduction of Other Therapeutic Substance into Central Vein, Percutaneous Approach (ICD-10-PCS; 2019-07-23)
PROC: 3E0437Z Introduction of Electrolytic and Water Balance Substance into Central Vein, Percutaneous Approach (ICD-10-PCS; 2019-07-23)
DX: Z51.11 Encounter for antineoplastic chemotherapy (principal); C34.90 Malignant neoplasm of unspecified part of unspecified bronchus or lung; E11.9 Type 2 diabetes mellitus without complications; E78.00 Pure hypercholesterolemia, unspecified; J44.9 Chronic obstructive pulmonary disease, unspecified; Z85.51 Personal history of malignant neoplasm of bladder
CPT/HCPCS: 96367; 96413; 96415; J2469; J9181

== ENCOUNTER 2019-07-24 05:36 | Day surgery (SDC) | payer OTHER ==
[~2019-07-24 05:36] MED LIST: DEXAMETHASONE SODIUM PHOSPHATE 10 MG in SODIUM CHLORIDE 50 ML IVPB ONE; ETOPOSIDE IV ONE; PALONOSETRON HCL 0.25 MG/5 ML VIAL IVPUSH ONE; SODIUM CHLORIDE 0.9% IV ONE; SODIUM CHLORIDE 250 ML IV ONE
[2019-07-24] MEDS ORDERED: PALONOSETRON HCL 0.25 MG/5 ML VIAL IVPUSH ONE (10:00)
[2019-07-24] MEDS ORDERED: DEXAMETHASONE SODIUM PHOSPHATE 10 MG in SODIUM CHLORIDE 50 ML IVPB ONE (10:00)
[2019-07-24] MEDS ORDERED: SODIUM CHLORIDE 250 ML IV ONE (10:00)
[2019-07-24] MEDS ORDERED: ETOPOSIDE IV ONE (10:30)
[2019-07-24] MEDS ORDERED: SODIUM CHLORIDE 0.9% IV ONE (10:30)
[2019-07-24 14:27] VITALS: BP 118/71; PULSE 76; TEMP 98.7
[2019-07-24] MEDS ORDERED: PORTA CATH FLUSH 10 ML IVPUSH ONE (14:40)
== END 2019-07-24 13:07 | disposition home or self-care (01) ==
LOC: JONCCHEMO 05:36 → J7W 09:12 → JONCCHEMO 13:07
PROVIDERS: ATTEND Internal Medicine Hematology & Oncology
PROC: 3E04305 Introduction of Other Antineoplastic into Central Vein, Percutaneous Approach (ICD-10-PCS; principal; 2019-07-24)
PROC: 3E043GC Introduction of Other Therapeutic Substance into Central Vein, Percutaneous Approach (ICD-10-PCS; 2019-07-24)
PROC: 3E0437Z Introduction of Electrolytic and Water Balance Substance into Central Vein, Percutaneous Approach (ICD-10-PCS; 2019-07-24)
DX: Z51.11 Encounter for antineoplastic chemotherapy (principal); C34.90 Malignant neoplasm of unspecified part of unspecified bronchus or lung
CPT/HCPCS: 96361; 96375; 96413; 96415; J2469; J9181

== ENCOUNTER 2019-07-25 06:59 | Day surgery (SDC) | payer OTHER ==
[2019-07-25] MEDS ORDERED: PEGFILGRASTIM-CBQV (UDENYCA) 6 MG/0.6 ML SYRINGE SQ ONE (10:00)
[2019-07-25 15:03] VITALS: BP 109/52; PULSE 81; TEMP 97.7
== END 2019-07-25 13:15 | disposition home or self-care (01) ==
LOC: JONCCHEMO 06:59 → J7W 12:49 → JONCCHEMO 13:15
PROVIDERS: ATTEND Internal Medicine Hematology & Oncology
PROC: 3E013GC Introduction of Other Therapeutic Substance into Subcutaneous Tissue, Percutaneous Approach (ICD-10-PCS; principal; 2019-07-25)
DX: Z76.89 Persons encountering health services in other specified circumstances (principal); C34.90 Malignant neoplasm of unspecified part of unspecified bronchus or lung
CPT/HCPCS: 96372; Q5111

== ENCOUNTER 2019-08-11 09:31 | Day surgery (SDC) | payer OTHER ==
[2019-08-11] MEDS ORDERED: PALONOSETRON HCL 0.25 MG/5 ML VIAL IVPUSH ONE (10:00)
[2019-08-11] MEDS ORDERED: DEXAMETHASONE SODIUM PHOSPHATE 10 MG in SODIUM CHLORIDE 50 ML IVPB ONE (10:00)
[2019-08-11 10:18] LABS: BASO % 0.6 % (0-2.0); EOS % 0.3 % (0-4.5); HEMATOCRIT 38.6 % (32.4-45.2); HEMOGLOBIN 12.8 GM/dL (10.7-15.3); LYMPH % 27.5 % (8-40); MCH 30.5 pg (25.7-33.7); MCHC 33.2 g/dl (32.0-36.0); MEAN CELL VOLUME 91.9 fl (80-96); MEAN PLT VOLUME 9.4 fl (7.5-11.1); MONO % 8.3 % (3.8-10.2); NEUT % 63.3 % (42.8-82.8); PLATELET COUNT 185 K/MM3 (134-434); RDW 18.1 % (11.6-15.6); WHITE BLOOD COUNT 7.5 K/mm3 (4.0-10.0)
[2019-08-11] MEDS ORDERED: SODIUM CHLORIDE IVPB ONE (10:30)
[2019-08-11] MEDS ORDERED: CARBOPLATIN IVPB ONE (10:30)
[2019-08-11 10:44] LABS: ALBUMIN 3.4 g/dl (3.4-5.0); BILIRUBIN,TOTAL 0.4 mg/dL (0.2-1); BLOOD UREA NITROGEN 22.4 mg/dL (7-18); CREATININE 0.7 mg/dL (0.55-1.3); MAGNESIUM 2.3 mg/dL (1.8-2.4); POTASSIUM 4.4 mmol/L (3.5-5.1); TOT PROT 6.5 g/dl (6.4-8.2)
[2019-08-11] MEDS ORDERED: SODIUM CHLORIDE 0.9% IV ONE (11:00)
[2019-08-11] MEDS ORDERED: ETOPOSIDE IV ONE (11:00)
[2019-08-11] MEDS ORDERED: SODIUM CHLORIDE 250 ML IV ONE (13:00)
[2019-08-11 18:33] VITALS: TEMP 98.2
[2019-08-11 18:45] VITALS: BP 112/51; PULSE 71
[2019-08-11] MEDS ORDERED: PORTA CATH FLUSH 10 ML IVPUSH ONE (18:45)
== END 2019-08-11 16:15 | disposition home or self-care (01) ==
LOC: JONCCHEMO 09:31 → J7W 10:40 → JONCCHEMO 16:15
PROVIDERS: ATTEND Internal Medicine Hematology & Oncology
DX: Z51.11 Encounter for antineoplastic chemotherapy (principal); C34.90 Malignant neoplasm of unspecified part of unspecified bronchus or lung
CPT/HCPCS: 36415; 80053; 82977; 83735; 85025; 96361; 96375; 96413; 96415; 96417; J2469

== ENCOUNTER 2019-08-12 07:14 | Day surgery (SDC) | payer OTHER ==
[2019-08-12 09:25] VITALS: TEMP 98.4
[2019-08-12] MEDS ORDERED: PORTA CATH FLUSH 10 ML IVPUSH ONE (09:59)
[2019-08-12] MEDS ORDERED: PALONOSETRON HCL 0.25 MG/5 ML VIAL IVPUSH ONE (10:00)
[2019-08-12] MEDS ORDERED: DEXAMETHASONE SODIUM PHOSPHATE 10 MG in SODIUM CHLORIDE 50 ML IVPB ONE (10:00)
[2019-08-12] MEDS ORDERED: SODIUM CHLORIDE 0.9% IV ONE (10:30)
[2019-08-12] MEDS ORDERED: ETOPOSIDE IV ONE (10:30)
[2019-08-12] MEDS ORDERED: SODIUM CHLORIDE 250 ML IV ONE (12:30)
[2019-08-12 14:03] VITALS: BP 114/50; PULSE 80
== END 2019-08-12 13:15 | disposition home or self-care (01) ==
LOC: JONCCHEMO 07:14 → J7W 08:46 → JONCCHEMO 13:15
PROVIDERS: ATTEND Nurse Practitioner Family
DX: Z51.11 Encounter for antineoplastic chemotherapy (principal); C34.90 Malignant neoplasm of unspecified part of unspecified bronchus or lung
CPT/HCPCS: 96361; 96367; 96413; 96415; J2469

== ENCOUNTER 2019-08-13 07:12 | Day surgery (SDC) | payer OTHER ==
[2019-08-13] MEDS ORDERED: DEXAMETHASONE SODIUM PHOSPHATE 10 MG in SODIUM CHLORIDE 50 ML IVPB ONE (10:00)
[2019-08-13] MEDS ORDERED: PALONOSETRON HCL 0.25 MG/5 ML VIAL IVPUSH ONE (10:00)
[2019-08-13] MEDS ORDERED: ETOPOSIDE IV ONE (10:30)
[2019-08-13] MEDS ORDERED: SODIUM CHLORIDE 0.9% IV ONE (10:30)
[2019-08-13] MEDS ORDERED: SODIUM CHLORIDE 250 ML IV ONE (12:30)
[2019-08-13 16:09] VITALS: BP 130/66; PULSE 85; TEMP 98.4
[2019-08-13] MEDS ORDERED: PORTA CATH FLUSH 10 ML IVPUSH ONE (16:47)
== END 2019-08-13 13:45 | disposition home or self-care (01) ==
LOC: JONCCHEMO 07:12 → J7W 08:43 → JONCCHEMO 13:45
PROVIDERS: ATTEND Nurse Practitioner Family
DX: Z51.11 Encounter for antineoplastic chemotherapy (principal); C34.90 Malignant neoplasm of unspecified part of unspecified bronchus or lung
CPT/HCPCS: J2469

== ENCOUNTER 2019-08-14 05:31 | Day surgery (SDC) | payer OTHER ==
[2019-08-14] MEDS ORDERED: PEGFILGRASTIM-CBQV (UDENYCA) 6 MG/0.6 ML SYRINGE SQ ONE (10:00)
[2019-08-14 16:54] VITALS: BP 124/59; PULSE 88; TEMP 98.3
== END 2019-08-14 14:15 | disposition home or self-care (01) ==
LOC: JONCCHEMO 05:31 → J7W 13:34 → JONCCHEMO 14:15
PROVIDERS: ATTEND Nurse Practitioner Family
PROC: 3E013GC Introduction of Other Therapeutic Substance into Subcutaneous Tissue, Percutaneous Approach (ICD-10-PCS; principal; 2019-08-14)
DX: C34.90 Malignant neoplasm of unspecified part of unspecified bronchus or lung (principal); Z76.89 Persons encountering health services in other specified circumstances
CPT/HCPCS: Q5111

== ENCOUNTER 2022-05-16 11:46 | Emergency (ER) | payer OTHER ==
[2022-05-16 12:47] VITALS: RESP 20; BMI 25.7
[2022-05-16] MEDS ORDERED: ALBUTEROL SO4 2.5/IPRATROPIUM 0.5 INH SOL 3 ML VIAL.NEB. NEB ONE (13:39)
[2022-05-16] MEDS ORDERED: ALBUTEROL SO4 0.5 % INH SOLN 2.5 MG/0.5 ML VIAL.NEB. NEB ONE ×2 (13:39→13:41)
[2022-05-16 14:11] LABS: BASO % 0.6 % (0-2.0); EOS % 2.6 % (0-4.5); HEMATOCRIT 42.8 % (32.4-45.2); HEMOGLOBIN 14.4 GM/dL (10.7-15.3); LYMPH % 25.6 % (8-40); MCH 30.6 pg (25.7-33.7); MCHC 33.5 g/dl (32.0-36.0); MEAN CELL VOLUME 91.2 fl (80-96); MEAN PLT VOLUME 9.5 fl (7.5-11.1); MONO % 7.8 % (3.8-10.2); NEUT % 63.4 % (42.8-82.8); PLATELET COUNT 204 10^3/uL (134-434); RDW 13.6 % (11.6-15.6); WHITE BLOOD COUNT 9.5 K/mm3 (4.0-10.0)
[2022-05-16 14:12] LABS: PH,URINE 6.5 (5.0-8.0); URINE APPEARANCE CLEAR; URINE BILIRUBIN NEGATIVE (NEGATIVE); URINE COLOR YELLOW; URINE GLUCOSE (UA) NEGATIVE (NEGATIVE); URINE KETONE NEGATIVE (NEGATIVE); URINE LEUK ESTERASE NEGATIVE (NEGATIVE); URINE NITRITE NEGATIVE (NEGATIVE); URINE PROTEIN NEGATIVE (NEGATIVE); URINE UROBILINOGEN 0.2 mg/dL (0.2-1.0)
[2022-05-16 14:20] LABS: INR 1.01 (0.83-1.09); PROTHROMBIN TIME (PATIENT) 11.6 SEC (9.7-13.0)
[2022-05-16 14:32] LABS: CHLORIDE 102 mmol/L (98-107); SODIUM 141 mmol/L (136-145)
[2022-05-16 14:35] LABS: ALBUMIN 3.6 g/dl (3.4-5.0); BLOOD UREA NITROGEN 21.4 mg/dL (7-18); CALCIUM 9.4 mg/dL (8.5-10.1); CO2 30 mmol/L (21-32); GLUCOSE,RANDOM 96 mg/dL (74-106); MAGNESIUM 2.3 mg/dL (1.8-2.4)
[2022-05-16 14:36] LABS: VENOUS BASE EXCESS 1.9 mmol/L (-2-2); VENOUS O2 SATURATION 88.5 % (70-80); VENOUS PCO2 42.7 mmHg (38-52)
[2022-05-16 14:38] LABS: CREATININE 0.9 mg/dL (0.55-1.3); SGOT/AST 70 U/L (15-37); SGPT/ALT 38 U/L (13-61)
[2022-05-16 14:39] LABS: VENOUS PH 7.416 (7.310-7.410)
[2022-05-16 14:40] LABS: BILIRUBIN,TOTAL 0.5 mg/dL (0.2-1); TOT PROT 7.2 g/dl (6.4-8.2)
[2022-05-16 14:41] LABS: ALK PHOS 103 U/L (45-117)
[2022-05-16 14:50] LABS: N-TERMINAL BNP 268.6 pg/ml (5-450)
[2022-05-16 14:52] LABS: ANION GAP 9 MMOL/L (8-16)
[2022-05-16 15:57] LABS: BLOOD UREA NITROGEN 21.8 mg/dL (7-18); CALCIUM 9.2 mg/dL (8.5-10.1)
[2022-05-16 16:01] LABS: CREATININE 0.9 mg/dL (0.55-1.3)
[2022-05-16] MEDS ORDERED: DEXAMETHASONE SOD PHOSPHATE 4 MG/1 ML VIAL IM ONE (16:08)
[2022-05-16 16:16] VITALS: BP 108/53; PULSE 92; TEMP 97.2
[2022-05-16] MEDS ORDERED: DEXAMETHASONE SOD PHOSPHATE 10 MG/1 ML VIAL ONE (16:19)
== END 2022-05-16 16:43 | disposition home or self-care (01) ==
LOC: JER 11:46
PROC: 3E023GC Introduction of Other Therapeutic Substance into Muscle, Percutaneous Approach (ICD-10-PCS; principal; 2022-05-16)
PROC: 3E0F7GC Introduction of Other Therapeutic Substance into Respiratory Tract, Via Natural or Artificial Opening (ICD-10-PCS; 2022-05-16)
DX: J21.0 Acute bronchiolitis due to respiratory syncytial virus (principal)
CPT/HCPCS: 0241U-QW; 36415; 71046-TC-FY; 80048; 80053; 81003; 82803; 82962; 83735; 83880; 84484; 85025; 85610; 85730; 87086; 93005; 93010; 99285-25

== ENCOUNTER 2023-09-21 19:35 | Inpatient (IN) | payer OTHER ==
[2023-09-21] MEDS: SODIUM CHLORIDE 0.9% 500 ML INFUS.BAG IV ONE ×2 (21:13→22:22)
[2023-09-21 21:21] LABS: BASO % 0.2 % (0-2.0); EOS % 0.1 % (0-4.5); HEMATOCRIT 41.7 % (32.4-45.2); HEMOGLOBIN 13.8 GM/dL (10.7-15.3); LYMPH % 21.4 % (8-40); MCH 28.6 pg (25.7-33.7); MEAN CELL VOLUME 86.6 fl (80-96); MEAN PLT VOLUME 8.5 fl (7.5-11.1); MONO % 6.8 % (3.8-10.2); NEUT % 71.5 % (42.8-82.8); PLATELET COUNT 410 10^3/uL (134-434); RBC 4.82 M/mm3 (3.60-5.2); RDW 14.9 % (11.6-15.6); WHITE BLOOD COUNT 16.7 K/mm3 (4.0-10.0)
[2023-09-21 21:21] LABS: VENOUS BASE EXCESS 0.5 mmol/L (-2-2); VENOUS O2 SATURATION 56.3 % (70-80); VENOUS PCO2 45.5 mmHg (38-52); VENOUS PH 7.377 (7.310-7.410)
[2023-09-21 21:37] LABS: ACTIVATED PTT 36.3 SECONDS (25.2-36.5); INR 1.06 (0.83-1.09); PROTHROMBIN TIME (PATIENT) 12.3 SEC (9.7-13.0)
[2023-09-21 21:40] LABS: POTASSIUM 5.2 mmol/L (3.5-5.1)
[2023-09-21 21:43] LABS: CALCIUM 9.3 mg/dL (8.5-10.1)
[2023-09-21 21:45] LABS: ALBUMIN 2.5 g/dl (3.4-5.0); BLOOD UREA NITROGEN 30.5 mg/dL (7-18); MAGNESIUM 2.1 mg/dL (1.8-2.4)
[2023-09-21 21:47] LABS: CREATININE 0.9 mg/dL (0.55-1.3)
[2023-09-21 21:49] LABS: BILIRUBIN,TOTAL 0.8 mg/dL (0.2-1); TOT PROT 6.1 g/dl (6.4-8.2)
[2023-09-21 21:57] LABS: LACTIC ACID 2.2 mmol/L (0.4-2.0)
[2023-09-22] MEDS: SODIUM CHLORIDE 1,000 ML IV SCH (04:30)
[2023-09-22] MEDS ORDERED: ALBUTEROL SO4 HFA INHALER IH PRN (05:59)
[2023-09-22 06:40] LABS: BASO % 0.7 % (0-2.0); EOS % 0.3 % (0-4.5); HEMATOCRIT 34.6 % (32.4-45.2); HEMOGLOBIN 11.4 GM/dL (10.7-15.3); LYMPH % 25.3 % (8-40); MCH 28.8 pg (25.7-33.7); MCHC 32.9 g/dl (32.0-36.0); MEAN CELL VOLUME 87.3 fl (80-96); MEAN PLT VOLUME 7.8 fl (7.5-11.1); MONO % 6.4 % (3.8-10.2); NEUT % 67.3 % (42.8-82.8); PLATELET COUNT 415 10^3/uL (134-434); RBC 3.96 M/mm3 (3.60-5.2); RDW 14.4 % (11.6-15.6); WHITE BLOOD COUNT 14.6 K/mm3 (4.0-10.0)
[2023-09-22 07:08] LABS: EPI CELLS 4 /uL (0-25.1); HYALINE CASTS 0 /uL (0-3.1); PH,URINE 5.5 (5.0-8.0); URINE APPEARANCE CLOUDY; URINE BACTERIA 240 /uL (0-1359); URINE BILIRUBIN NEGATIVE (NEGATIVE); URINE COLOR YELLOW; URINE GLUCOSE (UA) NEGATIVE (NEGATIVE); URINE KETONE 1+ (NEGATIVE); URINE LEUK ESTERASE 3+ (NEGATIVE); URINE NITRITE NEGATIVE (NEGATIVE); URINE PROTEIN 1+ (NEGATIVE); URINE UROBILINOGEN 0.2 mg/dL (0.2-1.0); URINE WBC 747 /uL (0-25.8)
[2023-09-22 07:38] LABS: URINE RBC 36.8 /uL (0-23.9)
[2023-09-22 07:47] LABS: POTASSIUM 3.9 mmol/L (3.5-5.1)
[2023-09-22 07:50] LABS: ALBUMIN 2.2 g/dl (3.4-5.0); CALCIUM 8.6 mg/dL (8.5-10.1)
[2023-09-22 07:54] LABS: CREATININE 0.7 mg/dL (0.55-1.3)
[2023-09-22 07:55] LABS: BILIRUBIN,TOTAL 0.6 mg/dL (0.2-1); TOT PROT 5.3 g/dl (6.4-8.2)
[2023-09-22] MEDS: LEVOTHYROXINE NA 112 MCG TABLET (FP) PO SCH (08:19)
[2023-09-22] MEDS: CALCIUM (OYSTER SHELL) 500 MG TABLET (FP) PO SCH (09:42)
[2023-09-22] MEDS: CHOLECALCIFEROL (VIT D3) 1,000 UNIT (25 MCG) TABLET PO SCH (09:42)
[2023-09-22] MEDS: LOSARTAN POTASSIUM 50 MG TABLET PO SCH (09:42)
[2023-09-22] MEDS: ASPIRIN 81 MG CHEWABLE TABLETS PO SCH (09:42)
[2023-09-22] MEDS: MULTIVITAMINS (DAILY MVI) TABLET (FP) PO SCH (09:42)
[2023-09-22] MEDS ORDERED: CEFTRIAXONE 1 GM in DEXTROSE 5%-WATER - 50 ML IVPB SCH ×2 (10:45→14:10)
[2023-09-22 13:58] VITALS: BMI 26.2
[2023-09-22] MEDS: CEFTRIAXONE 1 GM in DEXTROSE 5%-WATER - 50 ML IVPB SCH (14:22)
[2023-09-23 08:31] LABS: POTASSIUM 3.8 mmol/L (3.5-5.1)
[2023-09-23 08:36] LABS: BASO % 0.4 % (0-2.0); EOS % 0.8 % (0-4.5); HEMATOCRIT 34.3 % (32.4-45.2); HEMOGLOBIN 11.4 GM/dL (10.7-15.3); LYMPH % 34.7 % (8-40); MCH 28.7 pg (25.7-33.7); MCHC 33.3 g/dl (32.0-36.0); MEAN CELL VOLUME 86.2 fl (80-96); MEAN PLT VOLUME 8.1 fl (7.5-11.1); MONO % 6.9 % (3.8-10.2); NEUT % 57.2 % (42.8-82.8); PLATELET COUNT 371 10^3/uL (134-434); RBC 3.98 M/mm3 (3.60-5.2); RDW 14.4 % (11.6-15.6); WHITE BLOOD COUNT 11.5 K/mm3 (4.0-10.0)
[2023-09-23 08:47] LABS: ALBUMIN 2.1 g/dl (3.4-5.0); BLOOD UREA NITROGEN 19.7 mg/dL (7-18); CALCIUM 8.8 mg/dL (8.5-10.1); MAGNESIUM 1.7 mg/dL (1.8-2.4)
[2023-09-23 08:50] LABS: CREATININE 0.5 mg/dL (0.55-1.3)
[2023-09-23 08:53] LABS: BILIRUBIN,TOTAL 0.6 mg/dL (0.2-1); TOT PROT 5.1 g/dl (6.4-8.2)
[2023-09-23] MEDS ORDERED: CEFTRIAXONE 1 GM in DEXTROSE 5%-WATER - 50 ML IVPB SCH (10:00)
[2023-09-23] MEDS: MAGNESIUM OXIDE 400 MG TABLET (FP) PO ONE (13:21)
[2023-09-23] MEDS: SODIUM CHLORIDE 1,000 ML IV SCH (13:24)
[2023-09-24 15:22] VITALS: RESP 18
[2023-09-24] MEDS: CEFUROXIME AXETIL 250 MG TABLET PO SCH (21:47)
[2023-09-25 07:49] LABS: BASO % 0.2 % (0-2.0); EOS % 1.2 % (0-4.5); HEMATOCRIT 33.6 % (32.4-45.2); HEMOGLOBIN 11.5 GM/dL (10.7-15.3); LYMPH % 40.4 % (8-40); MCH 29.3 pg (25.7-33.7); MCHC 34.1 g/dl (32.0-36.0); MEAN CELL VOLUME 85.9 fl (80-96); MEAN PLT VOLUME 7.8 fl (7.5-11.1); MONO % 6.9 % (3.8-10.2); NEUT % 51.3 % (42.8-82.8); PLATELET COUNT 363 10^3/uL (134-434); RBC 3.91 M/mm3 (3.60-5.2); RDW 14.5 % (11.6-15.6); WHITE BLOOD COUNT 9.8 K/mm3 (4.0-10.0)
[2023-09-25 08:00] LABS: POTASSIUM 4.5 mmol/L (3.5-5.1)
[2023-09-25 08:06] LABS: BLOOD UREA NITROGEN 7.4 mg/dL (7-18); CALCIUM 8.6 mg/dL (8.5-10.1)
[2023-09-25 08:07] LABS: MAGNESIUM 1.6 mg/dL (1.8-2.4)
[2023-09-25 08:09] LABS: CREATININE 0.6 mg/dL (0.55-1.3)
[2023-09-25 08:10] LABS: BILIRUBIN,TOTAL 0.5 mg/dL (0.2-1)
[2023-09-25] MEDS: POLYETHYLENE GLYCOL (HEALTHYLAX) 3350 17 GM PACKET PO SCH (09:40)
[2023-09-25] MEDS: MAGNESIUM OXIDE 400 MG TABLET (FP) PO ONE (14:19)
[2023-09-25] MEDS: ATORVASTATIN CA 10 MG TABLET (FP) PO SCH (17:56)
[2023-09-25] MEDS: GABAPENTIN 400 MG CAPSULE PO SCH (21:39)
[2023-09-25] MEDS: metFORMIN HCL 500 MG TABLET (FP) PO SCH (21:39)
[2023-09-26] MEDS ORDERED: LEVOTHYROXINE NA 112 MCG TABLET (FP) PO SCH (07:00)
[2023-09-26] MEDS: ASPIRIN COATED 81 MG TABLET.EC PO SCH (10:23)
[2023-09-26] MEDS: GABAPENTIN 300 MG CAPSULE PO SCH (10:23)
[2023-09-26 11:30] VITALS: BP 119/65; PULSE 78; TEMP 97.6
== END 2023-09-26 14:35 | DRG 557 ==
LOC: JER 19:35 → JERBED 22:52 → J4W 09-22 13:08
PROVIDERS: ADMIT Student in an Organized Health Care Education/Training Program; ATTEND Internal Medicine
DX: M62.82 Rhabdomyolysis (principal); G93.41 Metabolic encephalopathy; E87.20 Acidosis, unspecified; N39.0 Urinary tract infection, site not specified; I10 Essential (primary) hypertension; E78.5 Hyperlipidemia, unspecified; E03.9 Hypothyroidism, unspecified; E78.00 Pure hypercholesterolemia, unspecified; I48.0 Paroxysmal atrial fibrillation; E86.0 Dehydration; D72.829 Elevated white blood cell count, unspecified; N28.1 Cyst of kidney, acquired; K76.89 Other specified diseases of liver; E87.5 Hyperkalemia; W18.30XA Fall on same level, unspecified, initial encounter; E11.9 Type 2 diabetes mellitus without complications; J44.9 Chronic obstructive pulmonary disease, unspecified; M85.88 Other specified disorders of bone density and structure, other site; R29.6 Repeated falls; Z85.118 Personal history of other malignant neoplasm of bronchus and lung; Y93.9 Activity, unspecified; Y92.009 Unspecified place in unspecified non-institutional (private) residence as the place of occurrence of the external cause; Y99.9 Unspecified external cause status
CPT/HCPCS: 36415; 70450-TC; 71045-TC-FY; 72125-TC; 72170-TC-FY; 76705-TC; 80053; 81003; 82550; 82553; 82803; 82962; 83036; 83605; 83735; 84443; 84484; 85025; 85610; 85730; 86850; 86900; 86901; 87040; 87086; 93005; 93010; 97116-GP; 97162-GP; 99285-25

== ENCOUNTER 2023-11-26 14:21 | Inpatient (IN) | payer OTHER ==
[2023-11-26 17:08] LABS: BASO % 0.6 % (0-2.0); EOS % 0.9 % (0-4.5); HEMATOCRIT 34.3 % (32.4-45.2); HEMOGLOBIN 11.1 GM/dL (10.7-15.3); LYMPH % 19.9 % (8-40); MCH 28.2 pg (25.7-33.7); MCHC 32.3 g/dl (32.0-36.0); MEAN CELL VOLUME 87.1 fl (80-96); MEAN PLT VOLUME 7.1 fl (7.5-11.1); MONO % 7.1 % (3.8-10.2); NEUT % 71.5 % (42.8-82.8); PLATELET COUNT 525 10^3/uL (134-434); RBC 3.94 M/mm3 (3.60-5.2); RDW 15.7 % (11.6-15.6); WHITE BLOOD COUNT 14.8 K/mm3 (4.0-10.0)
[2023-11-26 17:13] LABS: INR 1.22 (0.83-1.09); PROTHROMBIN TIME (PATIENT) 13.7 SEC (9.7-13.0)
[2023-11-26 17:16] LABS: ACTIVATED PTT 27.8 SECONDS (25.2-36.5)
[2023-11-26 17:26] LABS: POTASSIUM 3.7 mmol/L (3.5-5.1)
[2023-11-26 17:28] LABS: BLOOD UREA NITROGEN 11.2 mg/dL (7-18); CALCIUM 8.3 mg/dL (8.5-10.1)
[2023-11-26 17:32] LABS: CREATININE 0.4 mg/dL (0.55-1.3)
[2023-11-26 17:33] LABS: BILIRUBIN,TOTAL 0.3 mg/dL (0.2-1)
[2023-11-26] MEDS ORDERED: ACETAMINOPHEN INJECTION 100 ML IVPB ONE (17:41)
[2023-11-26] MEDS: SODIUM CHLORIDE 0.9% 500 ML INFUS.BAG IV ONE (17:52)
[2023-11-26] MEDS: ACETAMINOPHEN 1000 MG/100 ML BAG IVPB ONE (17:52)
[2023-11-26] MEDS: ALBUTEROL SO4 2.5/IPRATROPIUM 0.5 INH SOL 3 ML VIAL.NEB. NEB SCH (22:10)
[2023-11-26] MEDS ORDERED: ALBUTEROL SO4 2.5/IPRATROPIUM 0.5 INH SOL 3 ML VIAL.NEB. NEB ONE (22:11)
[2023-11-26] MEDS: PIPERACILLIN/TAZOB 4.5 GM 4.5 GM in DEXTROSE 5%-WATER 100 ML IVPB ONE (23:10)
[2023-11-26] MEDS: MAGNESIUM SULF 50% (8.12 MEQ/2 ML-1 GM VIAL) IVPB ONE (23:10)
[2023-11-26] MEDS ORDERED: PIPERACILLIN/TAZOB 4.5 GM 4.5 GM/100 ML BAG IVPB ONE (23:11)
[2023-11-26] MEDS ORDERED: MAGNESIUM 1GM/D5W - 1 GM/100 ML IVPB IVPB ONE (23:11)
[2023-11-27 00:26] LABS: EPI CELLS 2 /uL (0-25.1); HYALINE CASTS 0 /uL (0-3.1); URINE APPEARANCE CLEAR; URINE BACTERIA 0 /uL (0-1359); URINE BILIRUBIN NEGATIVE (NEGATIVE); URINE COLOR YELLOW; URINE GLUCOSE (UA) NEGATIVE (NEGATIVE); URINE KETONE NEGATIVE (NEGATIVE); URINE LEUK ESTERASE TRACE (NEGATIVE); URINE NITRITE NEGATIVE (NEGATIVE); URINE PROTEIN NEGATIVE (NEGATIVE); URINE RBC 8 /uL (0-23.9); URINE UROBILINOGEN 0.2 mg/dL (0.2-1.0); URINE WBC 2 /uL (0-25.8)
[2023-11-27] MEDS: SODIUM CHLORIDE 1,000 ML IV SCH (03:10)
[2023-11-27 09:22] LABS: BASO % 0.6 % (0-2.0); EOS % 1.2 % (0-4.5); HEMATOCRIT 32.3 % (32.4-45.2); HEMOGLOBIN 10.5 GM/dL (10.7-15.3); LYMPH % 20.6 % (8-40); MCH 28.3 pg (25.7-33.7); MCHC 32.4 g/dl (32.0-36.0); MEAN CELL VOLUME 87.4 fl (80-96); MEAN PLT VOLUME 7.6 fl (7.5-11.1); MONO % 6.6 % (3.8-10.2); PLATELET COUNT 486 10^3/uL (134-434); RDW 15.2 % (11.6-15.6); WHITE BLOOD COUNT 11.6 K/mm3 (4.0-10.0)
[2023-11-27 09:45] LABS: POTASSIUM 3.6 mmol/L (3.5-5.1)
[2023-11-27 09:56] LABS: BLOOD UREA NITROGEN 11.3 mg/dL (7-18); CALCIUM 7.9 mg/dL (8.5-10.1)
[2023-11-27 09:57] LABS: ALBUMIN 1.9 g/dl (3.4-5.0); MAGNESIUM 1.9 mg/dL (1.8-2.4)
[2023-11-27 09:59] LABS: CREATININE 0.5 mg/dL (0.55-1.3); PHOSPHOROUS 3.3 mg/dL (2.5-4.9)
[2023-11-27 10:00] LABS: TOT PROT 4.7 g/dl (6.4-8.2)
[2023-11-27] MEDS ORDERED: PIPERACILLIN/TAZOB 4.5 GM 4.5 GM in DEXTROSE 5%-WATER 100 ML IVPB SCH (10:00)
[2023-11-27 10:01] LABS: BILIRUBIN,TOTAL 0.4 mg/dL (0.2-1)
[2023-11-27] MEDS: ALBUTEROL SO4 2.5/IPRATROPIUM 0.5 INH SOL 3 ML VIAL.NEB. NEB SCH ×2 (11:10→19:45)
[2023-11-27] MEDS: GABAPENTIN 400 MG CAPSULE PO SCH ×2 (11:24→22:09)
[2023-11-27] MEDS: PIPERACILLIN/TAZOB 4.5 GM 4.5 GM in DEXTROSE 5%-WATER 100 ML IVPB SCH (11:24)
[2023-11-27] MEDS: HEPARIN NA (PORCINE) 5,000 UNITS/ML 1ML VIAL SQ SCH ×2 (11:25→22:09)
[2023-11-27] MEDS: metoPROLOL SUCCINATE 25 MG TAB.SR.24H (FP) PO SCH (11:25)
[2023-11-27] MEDS: SILVER SULFADIAZINE 1% TOP CREAM 50 GM JAR TP SCH ×2 (12:13→22:14)
[2023-11-27] MEDS ORDERED: D5-1/2NS+10 MEQ KCL - 10 MEQ/1,000 ML INFUS.BAG IV SCH (15:00)
[2023-11-27] MEDS ORDERED: ALBUTEROL SO4 HFA INHALER IH ONE (17:19)
[2023-11-27] MEDS ORDERED: PROPOFOL 20 ML ONE (17:27)
[2023-11-27] MEDS ORDERED: ROCURONIUM BROMIDE 50 MG/5 ML SYRINGE ONE (17:30)
[2023-11-27] MEDS ORDERED: SUCCINYLCHOLINE CHLORIDE 200 MG/10 ML SYRINGE ONE (17:30)
[2023-11-27] MEDS ORDERED: SUGAMMADEX SODIUM 200 MG/2 ML VIAL ONE (17:30)
[2023-11-27] MEDS ORDERED: ONDANSETRON 4 MG/2 ML VIAL ONE (17:56)
[2023-11-27] MEDS ORDERED: DEXAMETHASONE SOD PHOSPHATE 4 MG/1 ML VIAL ONE (17:56)
[2023-11-27] MEDS ORDERED: cefOXitin SODIUM 2 GM VIAL (RESTRICTED TO ID) IVPB ONE (17:57)
[2023-11-27] MEDS ORDERED: HEPARIN NA (PORCINE) 5,000 UNITS/ML 1ML VIAL ONE (17:57)
[2023-11-27] MEDS: cefOXitin SODIUM 2 GM VIAL (RESTRICTED TO ID) IVPB ONE (17:57)
[2023-11-27] MEDS ORDERED: ATORVASTATIN CA 10 MG TABLET (FP) PO SCH (18:00)
[2023-11-27] MEDS ORDERED: ONDANSETRON 4 MG/2 ML VIAL IVPUSH PRN (18:51)
[2023-11-27] MEDS: LACTATED RINGERS SOLUTION 1,000 ML IV SCH (19:00)
[2023-11-27] MEDS: ALBUTEROL SO4 0.083% IH SOL 2.5 MG/3 ML VIAL.NEB. NEB ONE (19:05)
[2023-11-27] MEDS ORDERED: ACETAMINOPHEN INJECTION 100 ML IVPB ONE (19:24)
[2023-11-27] MEDS: ACETAMINOPHEN 1000 MG/100 ML BAG IVPB ONE (19:30)
[2023-11-27] MEDS: PIPERACILLIN/TAZOB 3.375 GM 3.375 GM in DEXTROSE 5%-WATER - 50 ML IVPB SCH (19:31)
[2023-11-27] MEDS ORDERED: morphine SULFATE 4 MG/ML VIAL IVPUSH PRN (21:24)
[2023-11-27] MEDS: D5-1/2NS+10 MEQ KCL - 10 MEQ/1,000 ML INFUS.BAG IV SCH (21:40)
[2023-11-27] MEDS ORDERED: MELATONIN 1 MG TABLET PO SCH (22:00)
[2023-11-27] MEDS: MELATONIN 1 MG TABLET PO SCH (22:09)
[2023-11-28] MEDS: LEVOTHYROXINE NA 150 MCG TABLET PO SCH (06:35)
[2023-11-28] MEDS ORDERED: LEVOTHYROXINE NA 150 MCG TABLET PO SCH (07:00)
[2023-11-28] MEDS: metoPROLOL SUCCINATE 25 MG TAB.SR.24H (FP) PO SCH (09:20)
[2023-11-28 09:35] LABS: BASO % 0.4 % (0-2.0); HEMATOCRIT 32.1 % (32.4-45.2); HEMOGLOBIN 10.7 GM/dL (10.7-15.3); LYMPH % 18.1 % (8-40); MCH 29.2 pg (25.7-33.7); MCHC 33.5 g/dl (32.0-36.0); MEAN CELL VOLUME 87.2 fl (80-96); MEAN PLT VOLUME 7.5 fl (7.5-11.1); MONO % 4.9 % (3.8-10.2); NEUT % 76.6 % (42.8-82.8); PLATELET COUNT 478 10^3/uL (134-434); RBC 3.68 M/mm3 (3.60-5.2); RDW 15.8 % (11.6-15.6); WHITE BLOOD COUNT 8.9 K/mm3 (4.0-10.0)
[2023-11-28 09:53] LABS: POTASSIUM 4.2 mmol/L (3.5-5.1)
[2023-11-28 09:55] LABS: CALCIUM 8.3 mg/dL (8.5-10.1)
[2023-11-28 09:56] LABS: BLOOD UREA NITROGEN 11.1 mg/dL (7-18)
[2023-11-28 09:58] LABS: CREATININE 0.7 mg/dL (0.55-1.3)
[2023-11-28 10:00] LABS: BILIRUBIN,TOTAL 0.2 mg/dL (0.2-1); TOT PROT 4.6 g/dl (6.4-8.2)
[2023-11-28] MEDS: ACETAMINOPHEN 500 MG TABLET (FP) PO SCH (11:26)
[2023-11-28] MEDS: ATORVASTATIN CA 10 MG TABLET (FP) PO SCH (17:47)
[2023-12-01 09:56] LABS: BASO % 0.6 % (0-2.0); EOS % 3.2 % (0-4.5); HEMATOCRIT 34.5 % (32.4-45.2); HEMOGLOBIN 11.4 GM/dL (10.7-15.3); LYMPH % 36.1 % (8-40); MCH 28.8 pg (25.7-33.7); MCHC 33.2 g/dl (32.0-36.0); MEAN CELL VOLUME 86.9 fl (80-96); MEAN PLT VOLUME 7.3 fl (7.5-11.1); MONO % 6.7 % (3.8-10.2); NEUT % 53.4 % (42.8-82.8); PLATELET COUNT 449 10^3/uL (134-434); RBC 3.97 M/mm3 (3.60-5.2); RDW 16.3 % (11.6-15.6); WHITE BLOOD COUNT 8.4 K/mm3 (4.0-10.0)
[2023-12-01] MEDS: oxyCODONE HCL 5 MG TABLET PO PRN (09:58)
[2023-12-01 10:15] LABS: ALBUMIN 1.9 g/dl (3.4-5.0); BLOOD UREA NITROGEN 4.2 mg/dL (7-18); CALCIUM 8.6 mg/dL (8.5-10.1)
[2023-12-01 10:18] LABS: CREATININE 0.6 mg/dL (0.55-1.3)
[2023-12-01 10:20] LABS: BILIRUBIN,TOTAL 0.7 mg/dL (0.2-1); TOT PROT 4.9 g/dl (6.4-8.2)
[2023-12-01 23:41] VITALS: BMI 26.9
[2023-12-02 05:10] VITALS: RESP 18
[2023-12-02] MEDS: CHOLECALCIFEROL (VIT D3) 400 UNIT (10 MCG) TABLET PO SCH (11:08)
[2023-12-02] MEDS: ASCORBIC ACID 500 MG TABLET (FP) PO SCH (11:08)
[2023-12-03 10:36] VITALS: TEMP 98.5
[2023-12-03 14:29] VITALS: BP 114/60; PULSE 81
== END 2023-12-03 15:07 | DRG 330 ==
LOC: JER 14:21 → JERBED 21:52 → J6S 11-27 06:09
PROVIDERS: ADMIT Internal Medicine; ATTEND Family Medicine
PROC: 0D1L0Z4 Bypass Transverse Colon to Cutaneous, Open Approach (ICD-10-PCS; principal; 2023-11-27 14:00)
DX: K57.20 Diverticulitis of large intestine with perforation and abscess without bleeding (principal); K56.609 Unspecified intestinal obstruction, unspecified as to partial versus complete obstruction; L98.8 Other specified disorders of the skin and subcutaneous tissue; Z85.51 Personal history of malignant neoplasm of bladder; Z85.118 Personal history of other malignant neoplasm of bronchus and lung; I10 Essential (primary) hypertension; I48.0 Paroxysmal atrial fibrillation; J44.9 Chronic obstructive pulmonary disease, unspecified; E11.42 Type 2 diabetes mellitus with diabetic polyneuropathy; E03.9 Hypothyroidism, unspecified; D72.829 Elevated white blood cell count, unspecified
CPT/HCPCS: 36415; 74019-TC-FY; 74177-TC; 80053; 81003; 82962; 83605; 83690; 83735; 84100; 85025; 85610; 85730; 86850; 86870; 86880; 86900; 86901; 86902; 87040; 87086; 87635; 93005; 93010; 94010; 94640; 94760; 97116-GP; 97162-GP; 99285-25; E0186; J0131; J1644; Q9967

== ENCOUNTER → 2024-02-07 | Day surgery (SDC) | payer OTHER ==
[2024-01-31 12:14] VITALS: BMI 23.7
[2024-02-07 10:17] VITALS: TEMP 97.3
[2024-02-07 10:46] VITALS: BP 124/52; PULSE 68; RESP 17
== END | disposition home or self-care (01) ==
LOC: JASU-ENDO 04:24
PROVIDERS: ATTEND Internal Medicine Gastroenterology
PROC: 0DJD8ZZ Inspection of Lower Intestinal Tract, Via Natural or Artificial Opening Endoscopic (ICD-10-PCS; principal; 2024-02-07 09:30)
DX: Z01.818 Encounter for other preprocedural examination (principal)
CPT/HCPCS: 82962

== ENCOUNTER 2024-04-15 05:17 | Inpatient (IN) | payer OTHER ==
[2024-04-15] MEDS ORDERED: PROPOFOL 20 ML ONE (07:21)
[2024-04-15] MEDS ORDERED: MIDAZOLAM HCL 2 MG/2 ML SINGLE DOSE VIAL ONE (07:22)
[2024-04-15] MEDS ORDERED: ROCURONIUM BROMIDE 50 MG/5 ML SYRINGE ONE ×2 (07:22→09:31)
[2024-04-15] MEDS ORDERED: INDOCYANINE GREEN 25 MG/10 ML VIAL IVPUSH ONE ×3 (07:24→11:04)
[2024-04-15] MEDS ORDERED: HEPARIN NA (PORCINE) 5,000 UNITS/ML 1ML VIAL ONE (07:53)
[2024-04-15] MEDS ORDERED: cefOXitin SODIUM 2 GM VIAL (RESTRICTED TO ID) IVPB ONE ×2 (07:53→08:43)
[2024-04-15] MEDS: cefOXitin SODIUM 2 GM VIAL (RESTRICTED TO ID) IVPB ONE (08:31)
[2024-04-15] MEDS ORDERED: HYDROmorphone HCl 2 MG/ML VIAL ONE (08:55)
[2024-04-15] MEDS: BUPIVACAINE HCL/PF 0.25% (2.5MG/ML) 10 ML VIAL IJ ONE ×2 (09:26)
[2024-04-15] MEDS ORDERED: ACETAMINOPHEN 325 MG TABLET (FP) PO PRN (10:30)
[2024-04-15] MEDS ORDERED: ONDANSETRON 4 MG/2 ML VIAL IVPUSH PRN (10:30)
[2024-04-15] MEDS ORDERED: SUGAMMADEX SODIUM 200 MG/2 ML VIAL ONE (11:09)
[2024-04-15] MEDS ORDERED: DEXAMETHASONE SOD PHOSPHATE 4 MG/1 ML VIAL ONE (12:32)
[2024-04-15] MEDS ORDERED: KETOROLAC TROMETHAMINE 30 MG/1 ML VIAL ONE (12:32)
[2024-04-15] MEDS ORDERED: ONDANSETRON 4 MG/2 ML VIAL ONE ×2 (12:32)
[2024-04-15] MEDS ORDERED: BENZOIN/ALOE VERA/STORAX/TOLU 58 ML BOTTLE ONE (13:12)
[2024-04-15] MEDS ORDERED: ALBUTEROL SO4 2.5/IPRATROPIUM 0.5 INH SOL 3 ML VIAL.NEB. NEB PRN (13:33)
[2024-04-15] MEDS ORDERED: ePHEDrine SULFATE 50 MG/1 ML AMPULE ONE (14:29)
[2024-04-15] MEDS: ePHEDrine SULFATE 50 MG/1 ML AMPULE IM ONE (14:36)
[2024-04-15] MEDS: LACTATED RINGERS SOLUTION 1,000 ML IV SCH (14:39)
[2024-04-15] MEDS: CEFAZOLIN SODIUM 2 GM in DEXTROSE 5%-WATER 100 ML IVPB ONE (17:46)
[2024-04-15] MEDS: ACETAMINOPHEN 325 MG TABLET (FP) PO SCH (18:07)
[2024-04-15] MEDS: CEFOXITIN SODIUM/DEXTROSE,ISO 2 GM/50 ML BAG IVPB SCH (18:38)
[2024-04-15] MEDS: metFORMIN HCL 500 MG TABLET (FP) PO SCH (22:09)
[2024-04-15] MEDS: ATORVASTATIN CA 10 MG TABLET (FP) PO SCH (22:09)
[2024-04-15] MEDS: GABAPENTIN 400 MG CAPSULE PO SCH (22:09)
[2024-04-16] MEDS: LEVOTHYROXINE NA 112 MCG TABLET (FP) PO SCH (06:15)
[2024-04-16] MEDS: LACTATED RINGERS SOLUTION 1,000 ML IV SCH (09:45)
[2024-04-16 10:28] LABS: BASO % 0.5 % (0-2.0); EOS % 0.5 % (0-4.5); HEMATOCRIT 38.2 % (32.4-45.2); HEMOGLOBIN 12.3 GM/dL (10.7-15.3); MCHC 32.3 g/dl (32.0-36.0); MEAN CELL VOLUME 86.7 fl (80-96); MEAN PLT VOLUME 9.5 fl (7.5-11.1); MONO % 7.2 % (3.8-10.2); NEUT % 69.8 % (42.8-82.8); PLATELET COUNT 229 10^3/uL (134-434); RBC 4.41 M/mm3 (3.60-5.2); RDW 14.9 % (11.6-15.6); WHITE BLOOD COUNT 14.5 K/mm3 (4.0-10.0)
[2024-04-16 11:02] LABS: POTASSIUM 3.7 mmol/L (3.5-5.1)
[2024-04-16 11:03] LABS: BLOOD UREA NITROGEN 12.1 mg/dL (7-18); CALCIUM 8.9 mg/dL (8.5-10.1); MAGNESIUM 1.6 mg/dL (1.8-2.4)
[2024-04-16 11:07] LABS: CREATININE 1.2 mg/dL (0.55-1.3); PHOSPHOROUS 3.4 mg/dL (2.5-4.9)
[2024-04-16] MEDS: CHOLECALCIFEROL (VIT D3) 1,000 UNIT (25 MCG) TABLET PO SCH (11:12)
[2024-04-16] MEDS: ASCORBIC ACID 500 MG TABLET (FP) PO SCH (11:12)
[2024-04-16] MEDS: ASPIRIN COATED 81 MG TABLET.EC PO SCH (11:12)
[2024-04-16] MEDS: metoPROLOL SUCCINATE 25 MG TAB.SR.24H (FP) PO SCH (11:13)
[2024-04-16] MEDS: oxyCODONE HCL 5 MG TABLET PO PRN (11:13)
[2024-04-16] MEDS: methylPREDNISolone NA SUCC 40 MG/1 ML VIAL IVPUSH SCH (11:14)
[2024-04-16] MEDS: ENOXAPARIN NA (PORCINE) 40 MG/0.4 ML DISP.SYRIN SQ SCH (11:15)
[2024-04-16 11:58] LABS: SARS COV-2 MOLECULAR IN-HOUSE NEGATIVE (NEGATIVE)
[2024-04-16] MEDS: BUDESONIDE/FORMETEROL FUMARATE 160/4.5 mcg INHALER IH SCH (13:08)
[2024-04-16] MEDS ORDERED: ACETAMINOPHEN 1000 MG/100 ML BAG IVPB PRN (13:21)
[2024-04-16] MEDS: MAGNESIUM 2GM/50ML STERILE WATER IVPB IVPB ONE (14:08)
[2024-04-16] MEDS: ALBUTEROL SO4 2.5/IPRATROPIUM 0.5 INH SOL 3 ML VIAL.NEB. NEB SCH (15:34)
[2024-04-17 00:14] VITALS: RESP 18
[2024-04-17] MEDS: PSYLLIUM 5.85 GM PACKET PO SCH (09:27)
[2024-04-17 09:58] LABS: HEMATOCRIT 36.8 % (32.4-45.2); HEMOGLOBIN 12.4 GM/dL (10.7-15.3); MCH 28.8 pg (25.7-33.7); MCHC 33.8 g/dl (32.0-36.0); MEAN CELL VOLUME 85.4 fl (80-96); MEAN PLT VOLUME 8.8 fl (7.5-11.1); MONO % 2.9 % (3.8-10.2); NEUT % 90.1 % (42.8-82.8); PLATELET COUNT 216 10^3/uL (134-434); RBC 4.31 M/mm3 (3.60-5.2); RDW 15.4 % (11.6-15.6); WHITE BLOOD COUNT 10.1 K/mm3 (4.0-10.0)
[2024-04-17 10:11] LABS: POTASSIUM 4.4 mmol/L (3.5-5.1)
[2024-04-17 10:15] LABS: BLOOD UREA NITROGEN 13.7 mg/dL (7-18)
[2024-04-17 10:16] LABS: CALCIUM 8.8 mg/dL (8.5-10.1); MAGNESIUM 1.8 mg/dL (1.8-2.4)
[2024-04-17 10:19] LABS: PHOSPHOROUS 1.9 mg/dL (2.5-4.9)
[2024-04-17 15:23] VITALS: BMI 24.0
[2024-04-18 09:45] LABS: BASO % 0.3 % (0-2.0); HEMATOCRIT 36.9 % (32.4-45.2); HEMOGLOBIN 12.1 GM/dL (10.7-15.3); LYMPH % 10.9 % (8-40); MCHC 32.8 g/dl (32.0-36.0); MEAN CELL VOLUME 85.3 fl (80-96); MEAN PLT VOLUME 9.6 fl (7.5-11.1); MONO % 2.4 % (3.8-10.2); NEUT % 86.4 % (42.8-82.8); PLATELET COUNT 251 10^3/uL (134-434); RBC 4.32 M/mm3 (3.60-5.2); RDW 15.5 % (11.6-15.6); WHITE BLOOD COUNT 13.5 K/mm3 (4.0-10.0)
[2024-04-18 10:01] LABS: POTASSIUM 4.6 mmol/L (3.5-5.1)
[2024-04-18 10:05] LABS: ALBUMIN 2.9 g/dl (3.4-5.0)
[2024-04-18 10:06] LABS: BLOOD UREA NITROGEN 15.4 mg/dL (7-18); MAGNESIUM 1.8 mg/dL (1.8-2.4)
[2024-04-18 10:09] LABS: CREATININE 0.7 mg/dL (0.55-1.3); PHOSPHOROUS 2.2 mg/dL (2.5-4.9)
[2024-04-18 10:10] LABS: BILIRUBIN,TOTAL 0.6 mg/dL (0.2-1); TOT PROT 6.3 g/dl (6.4-8.2)
[2024-04-18] MEDS: NAPH,MB-DB/K PH,MBDB POWDER PACKET PO SCH (12:35)
[2024-04-19 10:27] LABS: BASO % 0.4 % (0-2.0); EOS % 0.2 % (0-4.5); HEMATOCRIT 38.3 % (32.4-45.2); HEMOGLOBIN 12.4 GM/dL (10.7-15.3); LYMPH % 11.6 % (8-40); MCH 28.1 pg (25.7-33.7); MCHC 32.4 g/dl (32.0-36.0); MEAN CELL VOLUME 86.8 fl (80-96); MEAN PLT VOLUME 8.8 fl (7.5-11.1); MONO % 5.7 % (3.8-10.2); NEUT % 82.1 % (42.8-82.8); PLATELET COUNT 277 10^3/uL (134-434); RBC 4.41 M/mm3 (3.60-5.2); RDW 15.4 % (11.6-15.6); WHITE BLOOD COUNT 9.8 K/mm3 (4.0-10.0)
[2024-04-19] MEDS: methylPREDNISolone NA SUCC 40 MG/1 ML VIAL IVPUSH SCH (10:52)
[2024-04-19 10:55] LABS: POTASSIUM 4.6 mmol/L (3.5-5.1)
[2024-04-19 11:01] LABS: BLOOD UREA NITROGEN 24.6 mg/dL (7-18)
[2024-04-19 11:04] LABS: CREATININE 0.8 mg/dL (0.55-1.3)
[2024-04-19 11:05] LABS: CALCIUM 8.9 mg/dL (8.5-10.1); MAGNESIUM 1.7 mg/dL (1.8-2.4)
[2024-04-19] MEDS ORDERED: ACETAMINOPHEN 325 MG TABLET (FP) PO PRN (19:34)
[2024-04-19] MEDS: oxyCODONE HCL 5 MG TABLET PO PRN (19:51)
[2024-04-19] MEDS: MELATONIN 1 MG TABLET PO PRN (21:38)
[2024-04-20 09:43] LABS: BASO % 0.4 % (0-2.0); HEMATOCRIT 36.5 % (32.4-45.2); LYMPH % 23.7 % (8-40); MCH 28.3 pg (25.7-33.7); MEAN CELL VOLUME 85.9 fl (80-96); MONO % 5.4 % (3.8-10.2); NEUT % 70.5 % (42.8-82.8); PLATELET COUNT 275 10^3/uL (134-434); RBC 4.25 M/mm3 (3.60-5.2); RDW 15.1 % (11.6-15.6); WHITE BLOOD COUNT 9.6 K/mm3 (4.0-10.0)
[2024-04-20 10:13] LABS: POTASSIUM 4.7 mmol/L (3.5-5.1)
[2024-04-20 10:17] LABS: BLOOD UREA NITROGEN 21.9 mg/dL (7-18)
[2024-04-20 10:20] LABS: CALCIUM 8.8 mg/dL (8.5-10.1); CREATININE 0.7 mg/dL (0.55-1.3); MAGNESIUM 1.9 mg/dL (1.8-2.4); PHOSPHOROUS 3.7 mg/dL (2.5-4.9)
[2024-04-21 09:39] LABS: BASO % 0.1 % (0-2.0); HEMOGLOBIN 13.5 GM/dL (10.7-15.3); LYMPH % 22.8 % (8-40); MCH 28.6 pg (25.7-33.7); MCHC 33.8 g/dl (32.0-36.0); MEAN CELL VOLUME 84.7 fl (80-96); MEAN PLT VOLUME 8.2 fl (7.5-11.1); MONO % 5.7 % (3.8-10.2); NEUT % 71.4 % (42.8-82.8); PLATELET COUNT 323 10^3/uL (134-434); RBC 4.72 M/mm3 (3.60-5.2); RDW 15.1 % (11.6-15.6); WHITE BLOOD COUNT 10.2 K/mm3 (4.0-10.0)
[2024-04-21 09:52] LABS: POTASSIUM 4.3 mmol/L (3.5-5.1)
[2024-04-21 09:53] LABS: BLOOD UREA NITROGEN 18.4 mg/dL (7-18); CALCIUM 8.9 mg/dL (8.5-10.1); MAGNESIUM 1.8 mg/dL (1.8-2.4)
[2024-04-21 09:56] LABS: CREATININE 0.8 mg/dL (0.55-1.3); PHOSPHOROUS 4.2 mg/dL (2.5-4.9)
[2024-04-21 16:26] VITALS: BP 128/70; PULSE 84; TEMP 99.5
== END 2024-04-21 20:08 | DRG 330 ==
LOC: J2C 05:17 → J8W 17:23
PROVIDERS: ADMIT Surgery; ATTEND Family Medicine
PROC: 0DTN0ZZ Resection of Sigmoid Colon, Open Approach (ICD-10-PCS; principal; 2024-04-15 07:30)
PROC: 0T788DZ Dilation of Bilateral Ureters with Intraluminal Device, Via Natural or Artificial Opening Endoscopic (ICD-10-PCS; 2024-04-15 07:30)
PROC: 0UT10ZZ Resection of Left Ovary, Open Approach (ICD-10-PCS; 2024-04-15 07:30)
DX: K57.32 Diverticulitis of large intestine without perforation or abscess without bleeding (principal); J44.1 Chronic obstructive pulmonary disease with (acute) exacerbation; N83.8 Other noninflammatory disorders of ovary, fallopian tube and broad ligament; I48.0 Paroxysmal atrial fibrillation; M85.88 Other specified disorders of bone density and structure, other site; I10 Essential (primary) hypertension; N28.1 Cyst of kidney, acquired; E11.65 Type 2 diabetes mellitus with hyperglycemia; K57.90 Diverticulosis of intestine, part unspecified, without perforation or abscess without bleeding; M48.061 Spinal stenosis, lumbar region without neurogenic claudication; M47.812 Spondylosis without myelopathy or radiculopathy, cervical region; E11.42 Type 2 diabetes mellitus with diabetic polyneuropathy; Z85.118 Personal history of other malignant neoplasm of bronchus and lung
CPT/HCPCS: 36415; 36430; 71045-TC-FY; 80048; 80053; 82962; 83036; 83735; 84100; 84439; 84443; 85025; 86140; 86850; 86900; 86901; 86922; 87633; 87635; 88305-TC; 88307-TC; 93306-TC; 94640; 94760; 97116-GP; 97161-GP; J1644

== ENCOUNTER 2024-05-08 14:55 | Inpatient (IN) | payer OTHER ==
[2024-05-08 16:01] VITALS: BMI 25.4
[2024-05-08] MEDS: SODIUM CHLORIDE 800 ML IV STA (17:27)
[2024-05-08] MEDS ORDERED: ACETAMINOPHEN INJECTION 100 ML ONE (17:30)
[2024-05-08] MEDS: CEFAZOLIN 1 GM in DEXTROSE 5%-WATER - 50 ML IVPB ONE (17:30)
[2024-05-08 17:40] LABS: VENOUS BASE EXCESS 2.8 mmol/L (-2-2); VENOUS O2 SATURATION 84.1 % (70-80); VENOUS PCO2 46.1 mmHg (38-52); VENOUS PH 7.403 (7.310-7.410)
[2024-05-08] MEDS: ACETAMINOPHEN 1000 MG/100 ML BAG IVPB ONE (17:41)
[2024-05-08] MEDS: SODIUM CHLORIDE 0.9% 500 ML INFUS.BAG IV ONE (17:41)
[2024-05-08] MEDS ORDERED: CEFAZOLIN 1 GM/D5W 1 GM/50 ML BAG ONE (17:43)
[2024-05-08] MEDS ORDERED: VANCOMYCIN 1 GM PREMIX (F) 1 GM/200 ML BAG ONE (17:44)
[2024-05-08 17:49] LABS: BASO % 0.7 % (0-2.0); EOS % 5.5 % (0-4.5); HEMATOCRIT 34.5 % (32.4-45.2); HEMOGLOBIN 11.2 GM/dL (10.7-15.3); LYMPH % 21.5 % (8-40); MCH 27.7 pg (25.7-33.7); MCHC 32.5 g/dl (32.0-36.0); MEAN CELL VOLUME 85.2 fl (80-96); MEAN PLT VOLUME 8.5 fl (7.5-11.1); MONO % 9.9 % (3.8-10.2); NEUT % 62.4 % (42.8-82.8); PLATELET COUNT 334 10^3/uL (134-434); RBC 4.04 M/mm3 (3.60-5.2); RDW 14.9 % (11.6-15.6); WHITE BLOOD COUNT 9.6 K/mm3 (4.0-10.0)
[2024-05-08 17:58] LABS: INR 0.96 (0.83-1.09); PROTHROMBIN TIME (PATIENT) 10.9 SEC (9.7-13.0)
[2024-05-08] MEDS: PIPERACILLIN/TAZOB 3.375 GM 3.375 GM in DEXTROSE 5%-WATER - 50 ML IVPB ONE (17:58)
[2024-05-08 18:00] LABS: ACTIVATED PTT 26.3 SECONDS (25.2-36.5)
[2024-05-08 18:05] LABS: POTASSIUM 4.8 mmol/L (3.5-5.1)
[2024-05-08 18:07] LABS: ALBUMIN 2.4 g/dl (3.4-5.0); BLOOD UREA NITROGEN 19.1 mg/dL (7-18)
[2024-05-08 18:10] LABS: CALCIUM 8.8 mg/dL (8.5-10.1)
[2024-05-08 18:11] LABS: CREATININE 0.7 mg/dL (0.55-1.3)
[2024-05-08 18:12] LABS: BILIRUBIN,TOTAL 0.3 mg/dL (0.2-1); TOT PROT 5.6 g/dl (6.4-8.2)
[2024-05-08] MEDS: VANCOMYCIN 1,000 MG in DEXTROSE 5%-WATER - 250 ML IVPB ONE (21:13)
[2024-05-09] MEDS ORDERED: ACETAMINOPHEN 325 MG TABLET (FP) PO PRN (05:04)
[2024-05-09 09:02] LABS: EOS % 4.8 % (0-4.5); HEMATOCRIT 32.7 % (32.4-45.2); HEMOGLOBIN 10.6 GM/dL (10.7-15.3); LYMPH % 16.2 % (8-40); MCH 27.7 pg (25.7-33.7); MCHC 32.3 g/dl (32.0-36.0); MEAN PLT VOLUME 9.2 fl (7.5-11.1); MONO % 6.4 % (3.8-10.2); NEUT % 71.6 % (42.8-82.8); PLATELET COUNT 346 10^3/uL (134-434); RDW 14.6 % (11.6-15.6); WHITE BLOOD COUNT 10.6 K/mm3 (4.0-10.0)
[2024-05-09 09:23] LABS: POTASSIUM 4.1 mmol/L (3.5-5.1)
[2024-05-09 09:30] LABS: BLOOD UREA NITROGEN 15.7 mg/dL (7-18); CALCIUM 8.6 mg/dL (8.5-10.1)
[2024-05-09 09:32] LABS: CREATININE 0.6 mg/dL (0.55-1.3)
[2024-05-09] MEDS: CEFAZOLIN 1 GM/D5W 1 GM/50 ML BAG IVPB SCH (09:34)
[2024-05-09] MEDS: LIDOCAINE 5% TOPICAL PATCH TP SCH (09:37)
[2024-05-09] MEDS: ASPIRIN COATED 81 MG TABLET.EC PO SCH (09:38)
[2024-05-09] MEDS: metoPROLOL SUCCINATE 25 MG TAB.SR.24H (FP) PO SCH (09:40)
[2024-05-09] MEDS: LACTOBACILLUS ACIDOPHILUS 1 TABLET PO SCH (09:40)
[2024-05-09] MEDS: NAPH,MB-DB/K PH,MBDB POWDER PACKET PO SCH (09:40)
[2024-05-09] MEDS: GABAPENTIN 400 MG CAPSULE PO SCH (09:40)
[2024-05-09] MEDS: SENNOSIDES 8.6MG TABLET (FP) PO SCH (09:40)
[2024-05-09] MEDS: PSYLLIUM 5.85 GM PACKET PO SCH (09:40)
[2024-05-09] MEDS: oxyCODONE HCL 5 MG TABLET PO PRN (09:47)
[2024-05-09 11:41] LABS: EPI CELLS 3 /uL (0-25.1); HYALINE CASTS 0 /uL (0-3.1); PH,URINE 5.5 (5.0-8.0); URINE APPEARANCE TURBID; URINE BACTERIA 6939 /uL (0-1359); URINE BILIRUBIN NEGATIVE (NEGATIVE); URINE COLOR YELLOW; URINE GLUCOSE (UA) NEGATIVE (NEGATIVE); URINE KETONE NEGATIVE (NEGATIVE); URINE LEUK ESTERASE 3+ (NEGATIVE); URINE NITRITE NEGATIVE (NEGATIVE); URINE PROTEIN TRACE (NEGATIVE); URINE RBC 40 /uL (0-23.9); URINE UROBILINOGEN 0.2 mg/dL (0.2-1.0); URINE WBC 3642 /uL (0-25.8)
[2024-05-09] MEDS: ALBUTEROL SO4 2.5/IPRATROPIUM 0.5 INH SOL 3 ML VIAL.NEB. NEB PRN (11:48)
[2024-05-09] MEDS: INSULIN ASPART SLIDING SCALE (NOVOLOG) 1 VIAL SQ SCH (11:58)
[2024-05-09] MEDS: VITAMINS A AND D TOPICAL OINTMENT TP SCH (11:59)
[2024-05-09 13:27] LABS: URIC ACID 3.7 mg/dL (2.6-7.2)
[2024-05-09] MEDS ORDERED: COLCHICINE 0.6 MG CAP PO ONE (14:17)
[2024-05-09] MEDS: COLCHICINE 0.6 MG TAB PO ONE (14:40)
[2024-05-09] MEDS ORDERED: MELATONIN 1 MG TABLET PO PRN (22:00)
[2024-05-09] MEDS: VANCOMYCIN/WATER FOR INJ (PEG) 750 MG/150 ML BAG IVPB SCH (22:26)
[2024-05-09] MEDS: metFORMIN HCL 500 MG TABLET (FP) PO SCH (22:26)
[2024-05-09] MEDS: LIDOCAINE PATCH REMOVAL MC SCH (22:27)
[2024-05-09] MEDS: ATORVASTATIN CA 10 MG TABLET (FP) PO SCH (22:27)
[2024-05-10] MEDS: LEVOTHYROXINE NA 112 MCG TABLET (FP) PO SCH (06:12)
[2024-05-10] MEDS: COLCHICINE 0.6 MG TAB PO SCH (09:18)
[2024-05-10] MEDS: ENOXAPARIN NA (PORCINE) 40 MG/0.4 ML DISP.SYRIN SQ SCH (09:18)
[2024-05-11] MEDS: LIDOCAINE 4% PATCH TP SCH (10:19)
[2024-05-11] MEDS ORDERED: VANCOMYCIN/WATER FOR INJ (PEG) 750 MG/150 ML BAG IVPB SCH (21:00)
[2024-05-11 23:38] VITALS: RESP 18
[2024-05-11] MEDS: LIDOCAINE PATCH REMOVAL MC SCH (23:50)
[2024-05-12 09:00] VITALS: BP 120/69; PULSE 91; TEMP 97.9
== END 2024-05-12 11:00 | DRG 603 ==
LOC: JER 14:55 → JERBED 21:43 → J7W 05-09 00:18 → OBSVTOIN 05-09 09:13
PROVIDERS: ADMIT Student in an Organized Health Care Education/Training Program; ATTEND Family Medicine
DX: L03.114 Cellulitis of left upper limb (principal); J44.9 Chronic obstructive pulmonary disease, unspecified; E03.9 Hypothyroidism, unspecified; I48.0 Paroxysmal atrial fibrillation; E11.42 Type 2 diabetes mellitus with diabetic polyneuropathy; M48.061 Spinal stenosis, lumbar region without neurogenic claudication; M47.812 Spondylosis without myelopathy or radiculopathy, cervical region; N28.1 Cyst of kidney, acquired; K76.89 Other specified diseases of liver; M10.9 Gout, unspecified; Z85.118 Personal history of other malignant neoplasm of bronchus and lung; Z93.3 Colostomy status
CPT/HCPCS: 0241U-QW; 36415; 71045-TC-FY; 73030-TC-LT-FY; 73110-TC-LT-FY; 73130-TC-LT-FY; 73610-TC-LT-FY; 73630-TC-LT; 74178-TC; 80048; 80053; 81003; 82803; 82962; 83605; 84443; 84484; 84550; 85025; 85610; 85651; 85730; 86140; 86850; 86870; 86880; 86900; 86901; 86902; 87040; 87086; 87186; 93005; 93010; 93971; 94640; 99285-25; G0378; J0131

== ENCOUNTER 2024-05-26 07:39 | Inpatient (IN) | payer OTHER ==
[2024-05-23 10:17] VITALS: BMI 25.4
[2024-05-26] MEDS ORDERED: ONDANSETRON 4 MG/2 ML VIAL IVPUSH PRN (10:55)
[2024-05-26] MEDS ORDERED: LIDOCAINE HCL/PF 2% SDV 5ML VIAL ONE (11:15)
[2024-05-26] MEDS ORDERED: PROPOFOL 20 ML ONE (11:16)
[2024-05-26] MEDS ORDERED: INDOCYANINE GREEN 25 MG/10 ML VIAL IVPUSH ONE (11:17)
[2024-05-26] MEDS ORDERED: BUPIVACAINE HCL/PF 0.25% (2.5MG/ML) 10 ML VIAL ONE (11:26)
[2024-05-26] MEDS ORDERED: HEPARIN NA (PORCINE) 5,000 UNITS/ML 1ML VIAL ONE (11:42)
[2024-05-26] MEDS ORDERED: CEFOXITIN SODIUM/DEXTROSE,ISO 2 GM/50 ML BAG ONE (13:58)
[2024-05-26] MEDS: cefoTEtan DISODIUM 2 GM VIAL (RESTRICTED TO ID) IVPB ONE (14:04)
[2024-05-26] MEDS ORDERED: ROCURONIUM BROMIDE 50 MG/5 ML SYRINGE ONE (14:08)
[2024-05-26] MEDS ORDERED: HYDROmorphone HCl 2 MG/ML VIAL ONE (14:15)
[2024-05-26] MEDS ORDERED: SUGAMMADEX SODIUM 200 MG/2 ML VIAL ONE (15:08)
[2024-05-26] MEDS ORDERED: ALBUTEROL SO4 2.5/IPRATROPIUM 0.5 INH SOL 3 ML VIAL.NEB. NEB PRN (15:25)
[2024-05-26 16:03] LABS: EPI CELLS >36 /uL (0-25.1); HYALINE CASTS 90 /uL (0-3.1); PH,URINE 5.5 (5.0-8.0); URINE APPEARANCE TURBID; URINE BACTERIA 1686 /uL (0-1359); URINE BILIRUBIN NEGATIVE (NEGATIVE); URINE COLOR YELLOW; URINE GLUCOSE (UA) NEGATIVE (NEGATIVE); URINE KETONE NEGATIVE (NEGATIVE); URINE LEUK ESTERASE 3+ (NEGATIVE); URINE NITRITE NEGATIVE (NEGATIVE); URINE PROTEIN 1+ (NEGATIVE); URINE UROBILINOGEN 0.2 mg/dL (0.2-1.0); URINE WBC 42413 /uL (0-25.8)
[2024-05-26 16:37] LABS: URINE RBC 342.7 /uL (0-23.9)
[2024-05-26] MEDS ORDERED: ACETAMINOPHEN INJECTION 100 ML ONE (16:52)
[2024-05-26] MEDS: ACETAMINOPHEN 1000 MG/100 ML BAG IVPB SCH (16:55)
[2024-05-26] MEDS: LACTATED RINGERS SOLUTION 1,000 ML IV SCH (18:30)
[2024-05-26] MEDS: oxyCODONE HCL 5 MG TABLET PO PRN (20:42)
[2024-05-26] MEDS: SENNOSIDES 8.6MG TABLET (FP) PO SCH (22:37)
[2024-05-26] MEDS: metFORMIN HCL 500 MG TABLET (FP) PO SCH (22:37)
[2024-05-26] MEDS: ATORVASTATIN CA 10 MG TABLET (FP) PO SCH (22:37)
[2024-05-26] MEDS: GABAPENTIN 400 MG CAPSULE PO SCH (22:38)
[2024-05-26] MEDS: LIDOCAINE PATCH REMOVAL MC SCH (22:39)
[2024-05-26] MEDS: BUDESONIDE/FORMETEROL FUMARATE 160/4.5 mcg INHALER IH SCH (22:44)
[2024-05-26] MEDS: CEFAZOLIN 2 GM/D5W 2 GM/50 ML ML IVPB SCH (22:44)
[2024-05-27] MEDS: LEVOTHYROXINE NA 112 MCG TABLET (FP) PO SCH (06:45)
[2024-05-27] MEDS: ASPIRIN COATED 81 MG TABLET.EC PO SCH (09:13)
[2024-05-27] MEDS: ENOXAPARIN NA (PORCINE) 40 MG/0.4 ML DISP.SYRIN SQ SCH (09:14)
[2024-05-27] MEDS: LIDOCAINE 5% TOPICAL PATCH TP SCH (09:16)
[2024-05-27] MEDS: metoPROLOL SUCCINATE 25 MG TAB.SR.24H (FP) PO SCH (09:17)
[2024-05-27] MEDS: POLYETHYLENE GLYCOL (HEALTHYLAX) 3350 17 GM PACKET PO SCH (09:17)
[2024-05-27] MEDS: PSYLLIUM 5.85 GM PACKET PO SCH (09:17)
[2024-05-27 09:51] LABS: HEMATOCRIT 37.4 % (32.4-45.2); HEMOGLOBIN 11.6 GM/dL (10.7-15.3); MCH 27.1 pg (25.7-33.7); MEAN CELL VOLUME 87.6 fl (80-96); MEAN PLT VOLUME 9.1 fl (7.5-11.1); PLATELET COUNT 256 10^3/uL (134-434); RBC 4.28 M/mm3 (3.60-5.2); RDW 15.6 % (11.6-15.6); WHITE BLOOD COUNT 17.1 K/mm3 (4.0-10.0)
[2024-05-27 10:12] LABS: POTASSIUM 4.1 mmol/L (3.5-5.1)
[2024-05-27 10:16] LABS: BLOOD UREA NITROGEN 6.5 mg/dL (7-18); CALCIUM 9.1 mg/dL (8.5-10.1)
[2024-05-27 10:19] LABS: CREATININE 0.8 mg/dL (0.55-1.3)
[2024-05-27] MEDS: ALBUTEROL SO4 2.5/IPRATROPIUM 0.5 INH SOL 3 ML VIAL.NEB. NEB SCH (17:04)
[2024-05-27] MEDS: NAPH,MB-DB/K PH,MBDB POWDER PACKET PO SCH (22:15)
[2024-05-28 09:30] LABS: BASO % 0.5 % (0-2.0); EOS % 2.4 % (0-4.5); HEMATOCRIT 33.3 % (32.4-45.2); HEMOGLOBIN 10.6 GM/dL (10.7-15.3); MCH 27.8 pg (25.7-33.7); MCHC 31.8 g/dl (32.0-36.0); MEAN CELL VOLUME 87.4 fl (80-96); MEAN PLT VOLUME 9.1 fl (7.5-11.1); MONO % 8.7 % (3.8-10.2); NEUT % 73.4 % (42.8-82.8); PLATELET COUNT 199 10^3/uL (134-434); RBC 3.81 M/mm3 (3.60-5.2); RDW 15.7 % (11.6-15.6); WHITE BLOOD COUNT 14.1 K/mm3 (4.0-10.0)
[2024-05-28 09:45] LABS: POTASSIUM 3.8 mmol/L (3.5-5.1)
[2024-05-28 09:54] LABS: ALBUMIN 2.4 g/dl (3.4-5.0); BLOOD UREA NITROGEN 6.1 mg/dL (7-18); CALCIUM 8.8 mg/dL (8.5-10.1)
[2024-05-28 09:58] LABS: CREATININE 0.6 mg/dL (0.55-1.3)
[2024-05-28 09:59] LABS: BILIRUBIN,TOTAL 0.6 mg/dL (0.2-1)
[2024-05-28] MEDS: CEFTRIAXONE 1 G/50 ML PREMIX 50 ML IVPB SCH (12:12)
[2024-05-29] MEDS: LEVOTHYROXINE NA 125 MCG TABLET (FP) PO SCH (06:27)
[2024-05-29 09:15] LABS: BASO % 0.3 % (0-2.0); EOS % 4.4 % (0-4.5); HEMATOCRIT 35.1 % (32.4-45.2); HEMOGLOBIN 11.1 GM/dL (10.7-15.3); LYMPH % 23.4 % (8-40); MCH 27.7 pg (25.7-33.7); MCHC 31.7 g/dl (32.0-36.0); MEAN CELL VOLUME 87.2 fl (80-96); MEAN PLT VOLUME 8.9 fl (7.5-11.1); MONO % 6.5 % (3.8-10.2); NEUT % 65.4 % (42.8-82.8); PLATELET COUNT 205 10^3/uL (134-434); RBC 4.02 M/mm3 (3.60-5.2); RDW 15.9 % (11.6-15.6); WHITE BLOOD COUNT 10.5 K/mm3 (4.0-10.0)
[2024-05-29 09:36] LABS: POTASSIUM 3.6 mmol/L (3.5-5.1)
[2024-05-29 09:42] LABS: ALBUMIN 2.4 g/dl (3.4-5.0); BLOOD UREA NITROGEN 4.7 mg/dL (7-18); CALCIUM 8.7 mg/dL (8.5-10.1)
[2024-05-29 09:46] LABS: CREATININE 0.6 mg/dL (0.55-1.3)
[2024-05-29 09:47] LABS: BILIRUBIN,TOTAL 0.4 mg/dL (0.2-1); TOT PROT 5.3 g/dl (6.4-8.2)
[2024-05-29] MEDS: LIDOCAINE 5% TOPICAL PATCH TP SCH (17:53)
[2024-05-29] MEDS: MELATONIN 1 MG TABLET PO PRN (21:35)
[2024-05-29] MEDS: LIDOCAINE PATCH REMOVAL MC SCH (22:57)
[2024-05-30 20:24] VITALS: RESP 18
[2024-05-30 21:50] VITALS: BP 129/61; PULSE 87; TEMP 97.9
== END 2024-05-30 21:55 | DRG 345 ==
LOC: J2C 07:39 → J8W 18:14
PROVIDERS: ADMIT Surgery; ATTEND Family Medicine
PROC: 0DSL0ZZ Reposition Transverse Colon, Open Approach (ICD-10-PCS; principal; 2024-05-26 11:00)
DX: Z43.3 Encounter for attention to colostomy (principal); N39.0 Urinary tract infection, site not specified; I10 Essential (primary) hypertension; J44.9 Chronic obstructive pulmonary disease, unspecified; Z85.118 Personal history of other malignant neoplasm of bronchus and lung; Z85.51 Personal history of malignant neoplasm of bladder; E11.9 Type 2 diabetes mellitus without complications; E03.9 Hypothyroidism, unspecified; B96.5 Pseudomonas (aeruginosa) (mallei) (pseudomallei) as the cause of diseases classified elsewhere
CPT/HCPCS: 36415; 80048; 80053; 81003; 82962; 84443; 85025; 85027; 86140; 86850; 86870; 86880; 86900; 86901; 86902; 87086; 87186; 87635; 88307-TC; 93005; 93010; 94640; 94760; 97116-GP; 97162-GP; J0131; J1644